=== PATIENT | female | born 1935 | race Caucasian/White ===

== ENCOUNTER → 2024-02-17 | Outpatient (CLI) | payer MEDICARE, MEDICAID, SELFPAY ==
[2024-02-17 11:17] LABS: Basophils % (Auto) 1 % (0-2.5); Eosinophils # (Auto) 0.1 Thou/mm3 (0.0-0.5); Eosinophils % (Auto) 1 % (0-10); Hematocrit 30.8 % (36.0-46.0); Hemoglobin 9.8 g/dL (12.0-16.0); Immature Granulocytes % (Auto) 0 % (0-0); Immature Granulocytes Auto 0.01 Thou/mm3 (0.00-0.00); Lymphocytes # (Auto) 0.9 Thou/mm3 (1.0-4.8); Lymphocytes % (Auto) 20 % (10-50); Mean Corpuscular HGB Conc 31.8 g/dl (31.0-37.0); Mean Corpuscular Hemoglobin 29.8 pg (25.0-35.0); Mean Corpuscular Volume 94 fL (80-100); Monocytes # (Auto) 0.6 Thou/mm3 (0.0-0.8); Monocytes % (Auto) 13 % (0-12); Neutrophils % (Auto) 65 % (37-80); Nucleated Red Blood Cell % 0 /100 WBC (0); Platelet Count 356 Thou/mm3 (140-440); RDW Standard Deviation 61.9 fL (36.4-46.3); Red Blood Count 3.29 Miln/mm3 (4.00-5.20); White Blood Count 4.6 Thou/mm3 (3.6-11.0)
[2024-02-17 11:36] LABS: Free T4 (Free Thyroxine) 1.79 ng/dL (0.89-1.76); Thyroid Stimulating Hormone 2.66 uIU/mL (0.55-4.78)
[2024-02-17 12:10] LABS: Ferritin 29 ng/mL (7.3-270.7); Iron 28 mcg/dL (50-170); T4 (Thyroxine) 12.2 mcg/dL (4.5-10.9); Total Iron Binding Capacity 263 mcg/dL (250-425)
== END | disposition home or self-care (01) ==
LOC: COPL 10:15
PROVIDERS: PCP Physician Assistant; Referring Provider Physician Assistant; Visit Provider Physician Assistant
DX: D64.9 Anemia, unspecified (principal); E03.9 Hypothyroidism, unspecified
CPT/HCPCS: 36415; 82728; 83540; 83550; 84436; 84439; 84443; 85025

== ENCOUNTER → 2024-03-06 | Outpatient (CLI) | payer MEDICARE, MEDICAID, SELFPAY | END | disposition home or self-care (01) | LOC: SLDO 14:46 | PROVIDERS: Referring Provider Physician Assistant; Visit Provider Physician Assistant | DX: D64.9 Anemia, unspecified (principal) | CPT/HCPCS: 87205 ==

== ENCOUNTER 2024-09-09 12:01 | Inpatient (IN) | payer MEDICARE, MEDICAID, SELFPAY ==
[2024-09-09] VITALS (10 sets, daily range): BP systolic 99–174; BP diastolic 57–114; PULSE 70–121; RESP 16–100; TEMP 36.6; O2SAT 95–99; BMI 21.1
--- NOTE | 2024-09-09 12:23 | XR_ITS ---
Examination: CT brain head without contrast. 2-D sagittal coronal reconstructions Date and time of exam:September 09, 2024 1310 hours Comparison September 17, 2022 CTDI: vol (mGy):39.9 DLP: (mGycm):769 INDICATIONS: Onset dizziness today Technique: Multiple CT axial sections of the brain have been obtained, 5 mm slice thickness. Contrast has not been administered. 2-D sagittal, coronal reconstructions have been obtained Low dose protocols were performed. One or more of the following dose reduction techniques were used; automated exposure control, adjustment of the mA and/or KV according to patient size, use of iterative reconstruction technique. Findings: Mild ventricular enlargement. Intra-axial or extra-axial hemorrhage density is not seen. No mass effect or midline shift Basal cisterns are not remarkable. Fourth ventricle is midline. Cranial vault intact. Impression: Negative for acute hemorrhage, mass effect or midline shift Advise clinical correlation follow-up accordingly
--- NOTE | 2024-09-09 12:23 | EKG_ITS ---
[facility] Test Date: 2024-09-09 Pat Name: MARTI LOPEZ Department: Room: - Gender: Female Unarmed Security Officer: : 1935 Requested By: Sheridan Cope Order Number: [id number] Reading MD: Sheridan Cope Measurements Intervals [place] Rate: 94 P: NC: QRS: -30 QRSD: 114 T: 81 QT: 372 QTc: 467 Interpretive Statements ATRIAL FIBRILLATION LOW QRS VOLTAGE IN EXTREMITY LEADS [QRS DEFLECTION < 0.5 mV IN LIMB LEADS] POSSIBLE ANTERIOR MYOCARDIAL INFARCTION , PROBABLY OLD [30 ms Q WAVE IN V3/V4, OR R < 0.2 mV IN V4] ABNORMAL RHYTHM ECG Compared to ECG 07/10/2023 11:23:14 Low QRS voltage now present Left-axis deviation no longer present Myocardial infarct finding still present /store/S0/[id number].pdf
--- NOTE | 2024-09-09 12:23 | XR_ITS ---
Examination: AP chest single view TECHNIQUE: AP sitting portable chest single view Date and time: September 09, 2024 1300 hours, comparison September 18, 2022 INDICATIONS: Shortness of breath today. FINDINGS: Opacity left base retrocardiac obscuring detail left hemidiaphragm Mild prominence cardiac contour No pulmonary edema Prominent osteopenia IMPRESSION: Left base pneumonia
--- NOTE | 2024-09-09 12:26 | PD.EDWEAK ---
ED Weakness RME/HPI General Chief complaint: Weakness Stated complaint: Weak, swelling to her feet Time Seen by Provider: 09/09/24 12:21 Arrival date/time: 09/09/24 12:01 This is a case of 88-year-old female with history of VA COPD and anemia came in in the emergency room due to general weakness dizziness and lightheadedness today with swelling on both lower extremities patient daughter denies any chest pain no palpitation but with on and off shortness of breath Limitations: no limitations Related Data Home Medications ?Medication ?Instructions ?Recorded ?Confirmed buspirone 5 mg tablet 5 mg PO BID 09/17/22 07/11/23 acetaminophen 325 mg tablet 325 mg PO PRN PRN Pain (Scale 07/11/23 07/11/23 (Tylenol) Score 1-3) buspirone 5 mg tablet 5 mg PO BID 07/11/23 07/11/23 ferrous sulfate 325 mg (65 mg 325 mg PO BID 07/11/23 07/11/23 iron) capsule,extended release folic acid 1 mg tablet 1 mg PO DAILY 07/11/23 07/11/23 furosemide 40 mg tablet (Lasix) 40 mg PO QDAY 07/11/23 07/11/23 magnesium 100 mg capsule 400 mg PO DAILY 07/11/23 07/11/23 pantoprazole 40 mg tablet,delayed 40 mg PO BID 07/11/23 07/11/23 release potassium chloride 8 mEq 8 meq PO DAILY 07/11/23 07/11/23 tablet,extended release sacubitril 24 mg-valsartan 26 mg 1 tab BID 07/11/23 07/11/23 tablet (Entresto) spironolactone 25 mg tablet 25 mg PO DAILY 07/11/23 07/11/23 Previous Rx's ?Medication ?Instructions ?Recorded amiodarone 200 mg tablet 200 mg PO BID 30 days #60 tabs 09/24/22 apixaban 2.5 mg tablet (Eliquis) 2.5 mg PO BID 30 days #60 tabs 09/24/22 aspirin 81 mg tablet,delayed 81 mg PO QDAY 30 days #30 tabs 09/24/22 release atorvastatin 20 mg tablet 40 mg (2 x 20 mg) PO HS 30 days 09/24/22 #60 tabs metoprolol succinate 25 mg 50 mg (2 x 25 mg) PO QDAY 30 days 09/24/22 tablet,extended release 24 hr #60 tabs mirtazapine 15 mg tablet 15 mg PO HS 30 days #30 tabs 09/24/22 Allergies Allergy/AdvReac Type Severity Reaction Status Date / Time tramadol AdvReac Intermediate UPSETS Verified 09/09/24 12:08 STOMACH,DOESN'T FEEL GOOD Review of Systems Review of Systems Systems Reviewed: All systems reviewed, normal except as documented Constitutional Constitutional: Reports system reviewed and no additional complaints, except as documented, Reports as per HPI, Denies anorexia, Denies body ache(s), Denies chills, Denies daytime sleepiness, Denies difficulty sleeping, Denies excessive sweating, Reports fatigue, Denies fever(s), Denies frequent falls, Denies headache(s), Denies increased appetite, Denies poor appetite, Denies lethargy, Denies malaise, Denies night sweats, Denies snoring, Denies stops breathing during sleep, Reports weakness, Denies weight gain and Denies weight loss Eyes Eyes: Reports system reviewed and no additional complaints, except as documented and Reports as per HPI ENT Ears, Nose, Mouth, and Throat: Reports system reviewed and no additional complaints, except as documented, Reports as per HPI and Denies headache(s) Cardiovascular Cardiovascular: Reports system reviewed and no additional complaints, except as documented, Reports as per HPI, Denies acrocyanosis, Denies chest pain, Denies chest pain at rest, Denies chest pain with activity, Denies claudication, Denies diaphoresis, Reports dyspnea, Denies dyspnea on exertion, Denies edema, Denies irregular heart rhythm, Reports leg edema, Denies leg ulcers, Denies lightheadedness, Denies orthopnea, Denies palpitations, Denies paroxysmal nocturnal dyspnea, Denies pedal edema, Denies radiating jaw, neck or arm pain, Denies rapid heart rate, Denies slow heart rate and Denies syncope Respiratory Respiratory: Reports system reviewed and no additional complaints, except as documented, Denies change in phlegm color, Denies chest congestion, Denies cough, Reports dyspnea, Denies dyspnea on exertion, Denies excessive phlegm production, Denies hemoptysis, Denies pain on inspiration, Denies pain with cough, Denies snoring, Denies stridor and Denies wheezing Gastrointestinal Gastrointestinal: Reports system reviewed and no additional complaints, except as documented, Reports as per HPI, Denies abdominal pain, Denies diarrhea, Denies hematemesis, Denies hematochezia, Denies loose stools, Denies melena and Denies nausea Neurologic Neurologic: Reports system reviewed and no additional complaints, except as documented, Reports as per HPI, Denies frequent falls, Denies headache(s), Denies syncope and Reports weakness Endocrine Endocrine: Denies excessive sweating, Reports fatigue and Denies palpitations Allergic/Immunologic Allergic/Immunologic: Denies wheezing Past Medical History Past Medical History NEUROLOGIC: Positive Neurological Disorders; Negative Seizures CARDIAC: Positive Cardiac Disorders (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; Takotsubo syndrome), Myocardial Infarction, Atrial Fibrillation, Hypercholesterolemia, Congestive Heart Failure, Edema and Hypertension RESPIRATORY: Negative Chronic Obstructive Pulmonary Disease (COPD) GASTROINTESTINAL: Positive Gastrointestinal Disorders, Gall Bladder Disease, Ulcer (gastric ulcer) and Gastroesophageal Reflux Disease GENITOURINARY: Negative Genitourinary Disorders or Renal Disease REPRODUCTIVE: Positive Previous Pregnancies (x7 ) MUSCULOSKELETAL: Positive Musculoskeletal Disorders and Arthritis ENT: Positive Cataracts and Macular Degeneration ENDOCRINE: Negative Diabetes Mellitus Type 1 or Diabetes Mellitus Type 2 HEMATOLOGIC: Negative Blood Disorders OTHER HISTORY: Positive Blood Transfusions; Negative Blood Transfusion Reaction, Anesthesia Reactions or Cancer Family History FAMILY HISTORY: Positive Family Cancer Surgical History SURGICAL: Positive Cardiac Surgery and Angiogram; Negative Coronary Stent, Pacemaker, Endocrine Surgery, Abdominal Surgery (ulcer surgery in past) or Joint Replacement Social History SMOKING STATUS: Former smoker ED Exam General Limitations: Present no limitations General appearance: Present alert, in no apparent distress and other (Awake alert oriented not in distress nontoxic looking) Head Head exam: Present atraumatic, normocephalic and normal inspection Eye Eye exam: Present normal appearance, PERRL and EOMI ENT ENT exam: Present normal exam, normal oropharynx, mucous membranes moist and other (Normal HEENT exam) Neck Neck exam: Present normal inspection, full ROM and trachea midline; Absent tenderness, meningismus or lymphadenopathy Chest Chest inspection: Present normal inspection and symmetric chest wall rise Respiratory Respiratory exam: Present normal lung sounds bilaterally; Absent respiratory distress, wheezes, stridor, accessory muscle use or prolonged expiratory phase Cardiovascular Cardiovascular exam: Present regular rate, normal rhythm, irregular rhythm, normal heart sounds and other (Pitting edema +4 both lower extremities); Absent bradycardia, tachycardia, systolic murmur or diastolic murmur Abdominal Exam Abdominal exam: Present soft and normal bowel sounds; Absent distention, tenderness, guarding, rebound, rigidity, diminished bowel sounds, hyperactive bowel sounds or hypoactive bowel sounds Extremities Exam Extremities exam: Present normal inspection and full ROM Back Exam Back exam: Present normal inspection and full ROM Neurological Exam Neurological exam: Present alert, oriented X3, CN II-XII intact, reflexes normal and other (Patient is using walker memory intact no facial droop no slurring of speech sensory normal reflex normal patient have generalized weakness negative Babinski); Absent motor sensory deficit Psychiatric Psychiatric exam: Present normal affect and normal mood Skin Skin exam: Present warm, dry, intact and normal color Course Quality Measures none Orders Category Date Time Status COVID-19 Screening Questionnaire NOW Care 09/09/24 12:56 Active Decision to Admit X1 Care 09/09/24 12:56 Completed EKG (ED ONLY) *Do not use* NOW Care 09/09/24 12:[address] head/brain wo con Stat Exams 09/09/24 12:23 Taken EKG (ED Only) Stat Exams 09/09/24 12:23 Draft US venous doppler LE BI Stat Exams 09/09/24 12:28 Ordered XR chest 1V portable Stat Exams 09/09/24 12:23 Taken BNP [B-Type Natriuretic Peptide] Stat Lab 09/09/24 12:23 Ordered Blood Culture (Lab) Stat Lab 09/09/24 12:59 Received CBC Stat Lab 09/09/24 13:03 Completed CMP [Comprehensive Metabolic Panel] Stat Lab 09/09/24 12:59 Received D-Dimer Stat Lab 09/09/24 12:24 Ordered Lactic Acid [Lactate (Lactic Acid)] Stat Lab 09/09/24 12:59 Results Procalcitonin Stat Lab 09/09/24 12:59 Received Prothrombin Time with INR Stat Lab 09/09/24 12:23 Ordered TSH [Thyroid Stimulating Hormone] Stat Lab 09/09/24 12:59 Received Troponin I Stat Lab 09/09/24 12:59 Received Urinalysis Stat Lab 09/09/24 12:24 Ordered Urine Culture Stat Lab 09/09/24 12:25 Ordered Bumetanide Inj [Bumex Inj] Med 09/09/24 21:00 Pending 2 mg IVP BID Vital Signs Vital signs: Vital Signs Temperature 97.8 F 09/09/24 12:14 Respiratory Rate 16 09/09/24 12:14 Blood Pressure 99/62 09/09/24 12:14 Oxygen Delivery Method Room Air 09/09/24 12:14 Patient is afebrile not tachycardic BP stable oxygen saturation in room air not tachypneic Weakness MDM Narrative MDM Narrative:: This is a case of 88-year-old female with history of VA COPD and anemia came in in the emergency room due to general weakness dizziness and lightheadedness today with swelling on both lower extremities patient daughter denies any chest pain no palpitation but with on and off shortness of breath patient is awake alert oriented not in distress nontoxic looking patient lungs sound is clear no crackles no rales no retraction no stridor HEENT exam normal patient heart not tachycardic normal heart rate irregular rhythm no murmur with pitting edema +4 the rest of the physical examination neurological exam is normal and unremarkable blood test showed blood test showed leukocytosis at 11.9 anemic at 10.9 patient still pending all blood tests lactic acid showed 3.3?procalcitonin level and blood culture was also ordered pending results urinalysis CT scan venous ultrasound and D-dimer is also pending Dr farr seen patient here and ordered to admit patient to hospitalist ordered Bumex 2 mg twice a day discussed with the patient the treatment plan and admission and agreed spoke dr carrion discussed patient condition history and physical examination and relayed the order of Dr. galdamez accept patient admission Patient data External records reviewed:: [facility] previous records Clinical information provided by:: patient and family Social determinants that could affect healthcare access:: none Patient has the following chronic illnesses:: None How is presenting disease/condition affected by chronic disease/condition?: no chronic disease Evaluation data The following diagnostics were reviewed and interpreted by me:: lab results and radiology exam(s) Lab and/or radiology exams considered but not ordered:: Reviewed Interpretation Summary: Reviewed Medications / Prescriptions Medications or Prescriptions considered but not ordered:: Given Medication administrations:: Medication Administration History Bumetanide (Bumetanide Inj 0.25 Mg/Ml Vial 4 Ml) 2 mg IVP BID GOLDIE Stop: 10/09/24 20:59 Given Consultations Consultation(s) initiated? (list below): Yes Consultation #1 (Physician, Specialty, Details): dr farr ordered pt to admit for chf exacerbation Consultation #2 (Physician, Specialty, Details): dr carrion accept patient admission Diagnosis Weakness Differential Diagnosis: acute myocardial infarction, anemia, hypoglycemia, hypothyroidism, sepsis, dehydration and other (CHF exacerbation) Most likely diagnosis given after review of the tests above:: CHF exacerbation Admission Indicated Admission indicated?: indicated Explain why admission is indicated or not indicated:: CHF exacerbation Admission Request Was there a request for admission?: Yes Admission Attestation Admission request attestation: Discussed case with [] from Hospitalist service regarding admission. Discussed patients ED course, exam findings, labs, and radiology results. The Hospitalist [agrees,declines] to accept the patient for admission. Disposition Plan Disposition Plan: Admit Discharge Plan Plan Patient Disposition: Admit Acute Care w/in Hospital Patient condition on transfer: Stable Prescriptions/Referrals Prescriptions/Med Rec: No Action buspirone 5 mg tablet 5 mg PO BID Patient Comments: take 1 tablet by mouth twice a day Eliquis 2.5 mg Tablet 2.5 mg PO BID 30 Days Qty: 60 2RF atorvastatin 20 mg Tablet 40 mg PO HS 30 Days Qty: 60 2RF amiodarone 200 mg Tablet 200 mg PO BID 30 Days Qty: 60 2RF aspirin 81 mg Tablet,Delayed Release (Dr/Ec) 81 mg PO QDAY 30 Days Qty: 30 2RF mirtazapine 15 mg Tablet 15 mg PO HS 30 Days Qty: 30 2RF metoprolol succinate 25 mg Tablet Extended Release 24 Hr 50 mg PO QDAY 30 Days Qty: 60 2RF Entresto 24-26 mg Tablet 1 tab BID folic acid 1 mg Tablet 1 mg PO DAILY ferrous sulfate 325 mg (65 mg iron) Capsule, Extended Release 325 mg PO BID furosemide [Lasix] 40 mg Tablet 40 mg PO QDAY buspirone 5 mg Tablet 5 mg PO BID pantoprazole 40 mg Tablet,Delayed Release (Dr/Ec) 40 mg PO BID magnesium 100 mg Capsule 400 mg PO DAILY acetaminophen [Tylenol] 325 mg Tablet 325 mg PO PRN MDD 3 grams PRN (Reason: Pain (Scale Score 1-3)) spironolactone 25 mg Tablet 25 mg PO DAILY potassium chloride 8 mEq Tablet Extended Release 8 meq PO DAILY Problem List Clinical Impression: Acute exacerbation of CHF (congestive heart failure) Patient/Caregiver Discharge Instructions Education Materials: Coping with Heart Failure Print Language: Ethiopian Stand Alone Forms: Marleny Award Info., Patient Portal Info Letter PA/POSTPARTUM NURSE Supervising Physician PA/POSTPARTUM NURSE Supervising Physician: dR Reese
--- NOTE | 2024-09-09 12:28 | XR_ITS ---
Examination: Venous duplex lower extremity sonogram, bilateral. Date and time of exam: September 09, 2024 at 1317 hours INDICATIONS: Bilateral leg swelling beginning one week ago Technique: Multiple sonographic images of the deep venous system have been obtained. B-mode/2-D grayscale imaging of vascular structures and Doppler spectral analysis (waveforms) and color performed Both legs are examined. Findings: Deep venous systems do not demonstrate abnormal echogenicity. All visualized deep veins exhibit compressibility. All visualized deep veins exhibit augmentation. Impression: Negative for deep vein thrombosis
[2024-09-09 13:07] LABS: Lactate (Lactic Acid) 3.6 mMol/L (0.4-2.0)
[2024-09-09 13:12] LABS: Basophils # (Auto) 0.1 Thou/mm3 (0.0-0.2); Basophils % (Auto) 0 % (0-2.5); Eosinophils # (Auto) 0.0 Thou/mm3 (0.0-0.5); Eosinophils % (Auto) 0 % (0-10); Hematocrit 30.6 % (36.0-46.0); Hemoglobin 10.1 g/dL (12.0-16.0); Immature Granulocytes Auto 0.05 Thou/mm3 (0.00-0.00); Lymphocytes # (Auto) 0.9 Thou/mm3 (1.0-4.8); Lymphocytes % (Auto) 8 % (10-50); Mean Corpuscular HGB Conc 33.0 g/dl (31.0-37.0); Mean Corpuscular Hemoglobin 32.7 pg (25.0-35.0); Mean Corpuscular Volume 99 fL (80-100); Monocytes # (Auto) 0.8 Thou/mm3 (0.0-0.8); Monocytes % (Auto) 7 % (0-12); Neutrophils # (Auto) 9.9 Thou/mm3 (1.8-7.7); Neutrophils % (Auto) 84 % (37-80); Nucleated Red Blood Cell # 0.00 Thou/mm3 (0.00-0.00); Nucleated Red Blood Cell % 0 /100 WBC (0); Platelet Count 454 Thou/mm3 (140-440); RDW Standard Deviation 57.4 fL (36.4-46.3); Red Blood Count 3.09 Miln/mm3 (4.00-5.20); White Blood Count 11.8 Thou/mm3 (3.6-11.0)
--- NOTE | 2024-09-09 13:25 | ESHP_ITS ---
<Statement entered by Deejay Maldonado MD - 09/10/24 17:23> Patient seen and examined at bedside, no acute overnight events. I discussed and supervised with the international relations teacher physician who took care of this patient. I personally saw and examined the patient. I agree with most of the assessment and plan. Patient sent to ED from Dr. Bar's clinic for CHF exacerbation, noted to have significant fluid overload. 4+ pitting edema bilaterally, worsening SOB. Dr. Bar following patient, recommended 2mg Bumex BID. Strict I&O's ordered. Patient found to be flu +, CXR showed left base PNA, Tamiflu initiated. Plan of care discussed with attending Dr. Fajardo. Deejay Maldonado MD PGY-2 Documentation for date of: 09/09/24 HPI History of Present Illness History of present illness: 87-year-old female with a past medical history of Takotsubo cardiomyopathy with an EF Estimated EF 55-60% in 07/2023, afib on apixiban, (followed by Dr. Bar), NSTEMI, essential HTN, HLD,, mild dementia, depression, GERD, PUD s/p gastric esophageal surgery, former smoker with more than 25 pack years of smoking history 15 years ago, occasional alcohol use, constipation, and intermittent shortness of breath. Patient had an appointment today with Dr. Milian who noted her legs to be very edematous with 9 out of 10 pain bilaterally and told patient to go to the emergency department for evaluation. Patient also reports generalized lower extremity weakness and lightheadedness that prompts her to sit down. Patient has been taking home medications without interruption. At home patient does wear compression socks which help with her swollen legs however today patient not wearing compression socks. per her home health care case manager Collette, patient had a recent fall 3 weeks ago with fracture to the right rib seen in [facility]. Over the past 3 weeks patient has had increased work of breathing, patient lives at home alone and is able to ambulate with walker and independent of ADLs but requires help with IADLs. Endorses dizziness bilateral lower extremity paresthesias and weakness Patient denies fever or chills dysuria , frequent urination, no abdominal pain, no vision changes In the emergency department patient received infectious workup, stroke rule eval, and dvt us, started on IV bumex for suspected CHF exacerbation. Dx * WBC 11.8 * Creatinine 1.4 up from 1.1 baseline BUN to creatinine ratio 14 * Lactic acid 3.6 * Procalcitonin within normal limits * TSH within normal limits * influenza A B positive * D-dimer pending * UA pending collection * Blood cultures pending * Chest x-ray with evidence of left base pneumonia * Noncon head CT: unremarkable * Venous Doppler bilateral lower extremity: negative for DVT Tx * 2 mg IV Bumex per Dr. Bar recs Review of Systems Review of Systems Narrative Review of Systems: As per HPI Past Medical History Family History OTHER FAMILY HX: Noncontributory Social History SOCIAL: Patient has a history of smoking 25 pack years patient stopped smoking 15 years ago Exam Vital Signs Temp Resp BP O2 Del Method 97.8 F 16 99/62 Room Air 09/09/24 12:14 09/09/24 12:14 09/09/24 12:14 09/09/24 12:14 Narrative Exam GENERAL: no acute distress, AAO x3, comfortably laying in bed HEENT: Head AT/ NC. NECK: unable to assess JVD given loose skin around neck CARDIOVASCULAR: RRR. Normal S1/S2, No m/r/g. 4+ pitting of BLE to the mid urena and 2+ pitting to the knees bilaterally RESPIRATORY: CTAB. No wheezing, rhonchi, crackles. GASTROINTESTINAL: Abdomen soft, non tender no palpable masses. Bowel sounds present, no suprapubic tenderness to deep palpation MUSCULOSKELETAL:? No cyanosis or edema, no visible joint swelling. NEUROLOGICAL: CN II-XII grossly intact. No focal deficits. Moving all 4 extremities PSYCHIATRIC: Awake and alert, not agitated, normal mood and affect. SKIN: No obvious rashes, no jaundice, Results: Labs 09/11/24 04:54 09/11/24 04:54 Labs: Short CBC 09/09/24 Range/Units 13:03 WBC 11.8 H (3.6-11.0) Thou/mm3 Hgb 10.1 L (12.0-16.0) g/dL Hct 30.6 L (36.0-46.0) % Plt Count 454 H (140-440) Thou/mm3 Quality Measures Quality Measures none Advance care planning discussed with:: patient Medications Home Medications and Allergies Home Medications ?Medication ?Instructions ?Recorded ?Confirmed ?Type buspirone 5 mg tablet 5 mg PO BID 09/17/22 5 History acetaminophen 325 mg tablet 325 mg PO PRN PRN Pain (Sc ashok 07/11/23 09/10/24 History (Tylenol) Score 1-3) buspirone 5 mg tablet 5 mg PO BID 07/11/23 5 History ferrous sulfate 325 mg (65 mg 325 mg PO BID 07/11/23 0 09/10/24 History iron) capsule,extended release folic acid 1 mg tablet 1 mg PO DAILY 07/11/2309/10 History furosemide 40 mg tablet (Lasix) 40 mg PO QDAY 07/11/23 09/10/24 History magnesium 100 mg capsule 400 mg PO DAILY 07/11/2312/26 History pantoprazole 40 mg tablet,delayed 40 mg PO BID 4 09/10/24 History release potassium chloride 8 mEq 8 meq PO DAILY 07/11/2309/01 History tablet,extended release sacubitril 24 mg-valsartan 26 mg 1 tab PO BID 07/11/23 09/10/24 History tablet (Entresto) spironolactone 25 mg tablet 25 mg PO DAILY 07/11/23 History Allergies Allergy/AdvReac Type Severity Reaction Status Date / Time tramadol Allergy Intermediate UPSETS Verified 09/09/24 14:28 STOMACH,DOESN'T FEEL GOOD Visit Medications Bumetanide (Bumetanide Inj 0.25 Mg/Ml Vial 4 Ml) 2 mg IVP BID GOLDIE Stop: 10/09/24 20:59 Assessment & Plan Plan 87-year-old female with a past medical history of Takotsubo cardiomyopathy with an EF Estimated EF 55-60% in 07/2023, afib on apixiban, (followed by Dr. Bar), NSTEMI, essential HTN, HLD,, mild dementia, depression, GERD, PUD s/p gastric esophageal surgery, former smoker with more than 25 pack years of smoking history 15 years ago, occasional alcohol use, and constipation, who presented to Dr. Bar clinic today and was noted to have 4+ edema BLE, most concerning for CHF exacerbation started on 2 mg Bumex IV. Preliminary infectious workup revealed leukocytosis, influenza A/B+, chest x-ray shows possible left lower lobe pneumonia however lungs to auscultation are clear with perhaps decreased breath sounds bilaterally in setting of recent fall 3 weeks ago and broken rib on the right side consider patient not able to inhale fully secondary to pain, creatinine elevated from baseline, pending urine analysis and cultures, and blood cultures, and medication reconciliation. #Acute CHF exacerbation #Hx of Takotsubo cardiomyopathy #HFpEF (EF 55-60% in 07/2023) Per patient she has been having increased work of breathing over the past few days with exertion, patient notes that her legs are less edematous when she wears compression socks however she was not wearing them today she endorses taking her medications as prescribed. Patient does not report symptoms of cough, but does endorse 9 out of 10 bilateral lower extremity pain PureWick catheter in place given aggressive diuresis and concern for fall. Dx * Bilateral lower extremity ultrasound to evaluate lower extremity edema and pain: No DVT * Consider IVC ultrasound to assess volume status given unable to assess JVD on physical exam * BNP elevated at 296 Tx * IV Bumex 2 mg twice daily per cardiology recommendations * Holding home sacubitril/valsartan pending med reconciliation #Influenza A/B+ #Left lower lobe viral pneumonia #Leukocytosis SIRS criteria: Mild leukocytosis, not tachycardic not hypotensive SOFA score 2 for creatinine 1.4 Bacterial versus viral pneumonia. Viral pneumonia more likely given procalcitonin levels are within normal limits and patient tested positive for influenza WBC mildly elevated at 11.8 continue to monitor Dx -Lactic acid within normal limits -UA positive for leukocyte esterase and 3 WBC however nitrites negative; low level of suspicion for UTI at this time given lack of LUTS and urine negative nitrites, antibiotics not indicated at this time -Pending urine culture - ending blood cultures Tx - Tamiflu 75 mg daily for 5-day course (09/09 -09/14) - Antibiotics not indicated at this time given likely viral etiology #BO secondary to sepsis with end organ damage Creatinine elevated from baseline, consider pre versus intra versus postrenal etiologies, BUN/creatinine ratio of 14. Concern for prerenal etiology given patient is likely third spacing as evidenced by bilateral lower extremity edema 4+ on exam. OB may continue to worsen given current plan for IV diuresis, continue to monitor - Daily CMP #Electrolyte abnormalities -Daily CMP with mg and Phos -Replete as needed Chronic #hx NSTEMI Patient followed by Dr. Bar ?Follow-up and med reconciliation ?Aspirin? #Fall Patient with history of fall 3 weeks ago with fractured right rib seen at [facility], no head strike of note the patient is on apixaban - Consult PT #HTN -Home metoprolol #HLD - Home atorvastatin #GERD #hx PUD - pansoprazole 40 mg qd #Afib on apixiban - Home apixiban - Home amiodarone #Depression - Home mirtazapine #Dementia Continue delirium precautions avoid nighttime waking for lab draws, continue to monitor for agitation. Dispo: To home, patient has in-home health care case manager named Collette Lopes, who helps with IADLs. Patient is independent of ADLs with walker Diet: Regular diet Bowel Reg: Senna 1 tab p.o. daily as needed VTE ppx: Pauda score 11, pharmacologic VTE PPx indicated, on apixaban at home follow-up on dosing GI ppx: pansoprazole 40 mg qd Code status: DNR Attending Provider Attestation/Addendum Kingsley, Mary Fajardo DO, attest that I was physically present for the berry portions of the service and evaluated the patient with the resident and I reviewed and discussed the case with the resident and agree with the resident's findings and plans of care as documented above Patient is an 88-year-old female with past medical history of Takotsubo cardiomyopathy, A-fib, hypertension, hyperlipidemia, depression, GERD and history of tobacco use who was sent from her certified court/medical interpreter's office due to worsening bilateral lower extremity edema. Patient's son was at bedside as well. Patient endorsed having dyspnea on exertion with decreased activity level of her usual ADLs. Patient at baseline walks with her rollator, but has not been able to ambulate as much due to heaviness in her legs. She states that her certified court/medical interpreter increased her Bumex dose 2 weeks ago, without any improvement of her lower extremity edema. She also noticed that she does not often go to the bathroom as expected. She was recently admitted in nearby hospital due to fall which resulted in rib fracture. Patient denies any active chest pain at this time. She has mild bibasilar crackles on exam with 3+ b/l pitting edema. Will admit patient to telemetry for acute CHF exacerbation and start on Bumex 2mg IV BID. Will follow strict I's and O's and daily weights. Low suspicion for bacterial pneumonia as procal is negative and opacity on CXR appears to be chronic changes in comparison to previous CXRs. SHe is noted to be positive for flu. Will start patient on Tamiflu.
[2024-09-09 13:37] LABS: Alanine Aminotransferase 23 U/L (10-49); Albumin, Serum 2.8 gm/dL (3.4-4.8); Albumin/Globulin Ratio 1.2 (1.2-2.2); Alkaline Phosphatase 100 U/L (46-116); Anion Gap 12 (7-16); Aspartate Amino Transferase 21 U/L (0-34); BUN/Creatinine Ratio 14 Ratio (12-20); Bilirubin,Total 0.3 mg/dL (0.3-1.2); Blood Urea Nitrogen 19 mg/dL (9-23); Calcium 7.9 mg/dL (8.3-10.6); Calcium (Corrected) 8.9 mg/dL (8.5-10.1); Carbon Dioxide 20.2 mMol/L (20.0-31.0); Chloride 107 mMol/L (98-107); Creatinine (Component) 1.4 mg/dL (0.6-1.3); Estimated Creatinine Clearance 25.0 mL/min (>60); Globulin 2.3 gm/dL (2.3-3.5); Glucose 135 mg/dL (74-106); Osmolality,Calculated 281 (275-295); Potassium 3.3 mMol/L (3.4-5.1); Sodium 139 mMol/L (136-145); Thyroid Stimulating Hormone 3.66 uIU/mL (0.55-4.78); Total Protein 5.1 gm/dL (5.7-8.2); Troponin I < 0.020 ng/mL (0.0-0.045); eGFR 36 See Note
--- NOTE | 2024-09-09 13:37 | ECHO_ITS ---
Transthoracic Echo Report Ht (in): 65 Wt (lb): 127 Exam Location: Echo Lab Status: Emergency Deicer Repairer Electric: Jennifer Mata Indications: Procedure Performed: BP: 99 / 62 HR: 72 Technical Quality: Adequate MEASUREMENTS (Male / Female) Normal Values 2D ECHO LV Diastolic Diameter PLAX 4.3 cm 4.2 - 5.9 / 3.9 - 5.3 cm LV Systolic Diameter PLAX 2.8 cm IVS Diastolic Thickness 0.8 cm 0.6 - 1.0 / 0.6 - 0.9 cm LVPW Diastolic Thickness 0.6 cm 0.6 - 1.0 / 0.6 - 0.9 cm LV Relative Wall Thickness 0.3 LVOT Diameter 2.2 cm LA Volume Index 61.7 cm?/m? 16 - 28 cm?/m? Ascending Aorta Diameter 2.8 cm M-MODE AV Cusp Separation MM 1.2 cm DOPPLER AV Peak Velocity 146.7 cm/s AV Peak Gradient 8.6 mmHg LVOT Peak Velocity 42.9 cm/s LVOT Peak Gradient 0.7 mmHg AV Area Cont Eq pk 1.1 cm? MR Peak Velocity 506.0 cm/s MR Peak Gradient 102.4 mmHg MR ERO PISA 0.2 cm? TR Peak Velocity 247.0 cm/s TR Peak Gradient 24.4 mmHg PV Peak Velocity 66.5 cm/s PV Peak Gradient 1.8 mmHg FINDINGS Left Ventricle Normal left ventricular size, wall thickness, systolic function with no obvious regional wall motion abnormalities. Unable to determine diastology due to Afib. The ejection fraction is visually estimated at 55 %. Right Ventricle The right ventricle is normal in size and systolic function. The estimated right ventricular systolic pressure, 24 mmHg. RAP 5mmHg. Left Atrium The left atrial cavity size is severely increased. Right Atrium The right atrial cavity size is severely increased. Atrial Septum The interatrial septum appears normal with no evidence of a shunt. Aorta The aorta is normal by two-dimensional, color flow and Doppler interrogation. Mitral Valve The mitral valve annulus is moderately calcified with mild leaflet thickening. There is moderate to severe mitral regurgitation. Aortic Valve The aortic valve leaflets are moderately calcified without evidence of stenosis. No aortic regurgitation. Tricuspid Valve The tricuspid valve is normal by two-dimensional, color flow and Doppler interrogation. There is moderate tricuspid regurgitation. Pulmonic Valve The pulmonic valve is not well visualized. There is mild pulmonic regurgitation. Vessels The pulmonary artery appears normal. The inferior vena cava pulmonary and hepatic veins appear normal. Pericardium There is no significant pericardial effusion. Small left pleural effusion. CONCLUSIONS Indications: CHF and history of Afib Normal LV size and function. Estimated EF 55-60%. Diastolic function Normal RV size and function. Estimated RVSP around 35 mm hg. Severe LA dilataion. Moderate to severe MR. Mild RA Moderate TR. Mild PI. Moderate to severe aortic valve sclerosis without stenosis. Left Pleural Effusion. No Pericardial Effusion. Napoleon Bar (Electronically Signed) Final Date: 09 September 2024 17:52
[2024-09-09 13:56] LABS: Procalcitonin 0.11 ng/ml (0.0-0.49)
[2024-09-09] MEDS: POTASSIUM CHLORIDE 10% 20 MEQ/15 ML UDC 40 MEQ PO (14:34)
[2024-09-09] MEDS: BUMETANIDE INJ 0.25 MG/ML VIAL 4 ML 2 MG IVP ×2 (14:35→21:19)
[2024-09-09 15:06] LABS: D-Dimer 307 ng/mL (<600); INR 1.0 (0.9-1.3); Prothrombin Time 11.2 Seconds (9.0-12.2)
[2024-09-09 15:10] LABS: Magnesium 1.8 mg/dL (1.6-2.6)
[2024-09-09 15:11] LABS: B-Type Natriuretic Peptide 296 pg/mL (0-100)
[2024-09-09 16:05] LABS: Reflex Lactate? Y
[2024-09-09] MEDS: OSELTAMIVIR 30 MG CAPSULE PO (16:19)
[2024-09-09 16:45] LABS: Collection Type, Urine Voided
[2024-09-09 17:01] LABS: Lactic Acid, 3 HR 1.6 mMol/L (0.4-2.0)
[2024-09-09 17:13] LABS: Bacteria,Urine Rare; Bilirubin,Urine Negative (Negative); Blood,Urine Negative (Negative); Clarity,Urine Clear (Clear/Hazy); Color,Urine Colorless (Lt Yel-Yel); Glucose, Urine Negative (Negative); Ketones,Urine Negative (Negative); Leukocyte Esterase,Urine Positive (Negative); Nitrite,Urine Negative (Negative); PH,Urine 6.0 (5.0-7.0); Protein,Urine Negative (Neg - Trace); RBC,Urine 1 /hpf (0-3); Specific Gravity,Urine 1.008 (1.001-1.035); Squamous Epithelial Cell,Urine 2 /hpf (0-5); Urobilinogen,Urine Negative mg/dL (0.0-1.0); WBC,Urine 3 /hpf (0-5)
[2024-09-09 17:41] LABS: Troponin I < 0.020 ng/mL (0.0-0.045)
[2024-09-09] MEDS: Magnesium Sulfate 2 GM Ivpb 2 GM/50 ML BAG IV (21:06)
[2024-09-09] MEDS: PANTOPRAZOLE 40 MG TABLET PO (21:07)
--- NOTE | 2024-09-09 23:10 | PC.NURSE ---
Patient admitted to Telemetry room?263 from ED via gurney. Patient is alert and oriented. Settled into bed with staff assist. senior chemist established, controlled Afib on the monitor. Full assessment completed see documentation. Edema to lower extremities, all extremities cool to touch. Patient?s vitals stable on admit. Call howe within reach and bed alarm for safety. Patient stable on admit. Will monitor further. Patient unsure of her home medication at present. Patient states will have son Robert to bring in medications in the morning.
[2024-09-10] VITALS (12 sets, daily range): BP systolic 108–147; BP diastolic 58–97; PULSE 60–96; RESP 13–100; TEMP 35.9–36.6; O2SAT 98–100; BMI 13.0
[2024-09-10 06:30] LABS: Basophils # (Auto) 0.0 Thou/mm3 (0.0-0.2); Basophils % (Auto) 1 % (0-2.5); Eosinophils # (Auto) 0.1 Thou/mm3 (0.0-0.5); Eosinophils % (Auto) 2 % (0-10); Hematocrit 30.0 % (36.0-46.0); Hemoglobin 9.7 g/dL (12.0-16.0); Immature Granulocytes Auto 0.02 Thou/mm3 (0.00-0.00); Lymphocytes # (Auto) 1.1 Thou/mm3 (1.0-4.8); Lymphocytes % (Auto) 21 % (10-50); Mean Corpuscular HGB Conc 32.3 g/dl (31.0-37.0); Mean Corpuscular Hemoglobin 32.9 pg (25.0-35.0); Mean Corpuscular Volume 102 fL (80-100); Monocytes # (Auto) 0.6 Thou/mm3 (0.0-0.8); Monocytes % (Auto) 11 % (0-12); Neutrophils # (Auto) 3.4 Thou/mm3 (1.8-7.7); Neutrophils % (Auto) 66 % (37-80); Nucleated Red Blood Cell # 0.00 Thou/mm3 (0.00-0.00); Nucleated Red Blood Cell % 0 /100 WBC (0); Platelet Count 459 Thou/mm3 (140-440); RDW Standard Deviation 58.5 fL (36.4-46.3); Red Blood Count 2.95 Miln/mm3 (4.00-5.20); White Blood Count 5.2 Thou/mm3 (3.6-11.0)
[2024-09-10 07:12] LABS: Alanine Aminotransferase 19 U/L (10-49); Albumin, Serum 2.5 gm/dL (3.4-4.8); Albumin/Globulin Ratio 1.2 (1.2-2.2); Alkaline Phosphatase 97 U/L (46-116); Anion Gap 9 (7-16); Aspartate Amino Transferase 16 U/L (0-34); BUN/Creatinine Ratio 15 Ratio (12-20); Bilirubin,Total 0.3 mg/dL (0.3-1.2); Blood Urea Nitrogen 18 mg/dL (9-23); Calcium 7.9 mg/dL (8.3-10.6); Calcium (Corrected) 9.1 mg/dL (8.5-10.1); Carbon Dioxide 27.7 mMol/L (20.0-31.0); Chloride 107 mMol/L (98-107); Creatinine (Component) 1.2 mg/dL (0.6-1.3); Estimated Creatinine Clearance 29.2 mL/min (>60); Globulin 2.1 gm/dL (2.3-3.5); Glucose 75 mg/dL (74-106); Magnesium 1.9 mg/dL (1.6-2.6); Osmolality,Calculated 287 (275-295); Phosphorous 3.3 mg/dL (2.4-5.1); Potassium 4.1 mMol/L (3.4-5.1); Sodium 144 mMol/L (136-145); Total Protein 4.6 gm/dL (5.7-8.2); eGFR 44 See Note
--- NOTE | 2024-09-10 08:11 | PD.RESPRO ---
Documentation for date of: 09/10/24 Exam Vital Signs Temp Pulse Resp BP Pulse Ox O2 Del Method O2 Flow Rate 96.9 F 62 13 145/97 H 100 Nasal Cannula 2 09/10/24 04:00 09/10/24 04:00 09/10/24 04:00 09/10/24 04:00 09/10/24 04:00 09/10/24 04:00 09/10/24 04:00 Objective Labs 09/10/24 05:00 09/10/24 05:00 Labs: Laboratory Results - last 24 hr 09/09/24 09/09/24 09/09/24 12:59 13:03 14:45 WBC 11.8 H RBC 3.09 L Hgb 10.1 L Hct 30.6 L MCV 99 MCH 32.7 MCHC 33.0 RDW Std Deviation 57.4 H Plt Count 454 H Neut % (Auto) 84 H Lymph % (Auto) 8 L Tripp % (Auto) 7 Eos % (Auto) 0 Baso % (Auto) 0 Neut # (Auto) 9.9 H Lymph # (Auto) 0.9 L Tripp # (Auto) 0.8 Eos # (Auto) 0.0 Baso # (Auto) 0.1 Immature Gran # (Auto) 0.05 H Absolute Nucleated RBC 0.00 Immature Gran % 0 Nucleated RBC % 0 PT 11.2 INR 1.0 D-Dimer 307 Sodium 139 Potassium 3.3 L Chloride 107 Carbon Dioxide 20.2 Anion Gap 12 BUN 19 Creatinine 1.4 H Estim Creat Clear Calc 25.0 L eGFR 36 L BUN/Creatinine Ratio 14 Glucose 135 H Calculated Osmolality 281 Lactic Acid 3.6 H Calcium 7.9 L Corrected Calcium 8.9 Phosphorus Magnesium 1.8 Total Bilirubin 0.3 AST 21 ALT 23 Alkaline Phosphatase 100 Troponin I < 0.020 B-Natriuretic Peptide 296 H Total Protein 5.1 L Albumin 2.8 L Globulin 2.3 Albumin/Globulin Ratio 1.2 Procalcitonin 0.11 TSH 3.66 Ur Collection Type Urine Color Urine Clarity Urine pH Ur Specific Burwell Urine Protein Urine Glucose (UA) Urine Ketones Urine Blood Urine Nitrite Urine Bilirubin Urine Urobilinogen (Auto) Ur Leukocyte Esterase Urine RBC Urine WBC Ur Squamous Epith Cells Urine Bacteria 09/09/24 09/09/24 09/10/24 16:35 16:54 05:00 WBC 5.2 D RBC 2.95 L Hgb 9.7 L Hct 30.0 L MCV 102 H MCH 32.9 MCHC 32.3 RDW Std Deviation 58.5 H Plt Count 459 H Neut % (Auto) 66 Lymph % (Auto) 21 Tripp % (Auto) 11 Eos % (Auto) 2 Baso % (Auto) 1 Neut # (Auto) 3.4 Lymph # (Auto) 1.1 Tripp # (Auto) 0.6 Eos # (Auto) 0.1 Baso # (Auto) 0.0 Immature Gran # (Auto) 0.02 H Absolute Nucleated RBC 0.00 Immature Gran % 0 Nucleated RBC % 0 PT INR D-Dimer Sodium 144 Potassium 4.1 D Chloride 107 Carbon Dioxide 27.7 Anion Gap 9 BUN 18 Creatinine 1.2 Estim Creat Clear Calc 29.2 L eGFR 44 L BUN/Creatinine Ratio 15 Glucose 75 D Calculated Osmolality 287 Lactic Acid 1.6 Calcium 7.9 L Corrected Calcium 9.1 Phosphorus 3.3 Magnesium 1.9 Total Bilirubin 0.3 AST 16 ALT 19 Alkaline Phosphatase 97 Troponin I < 0.020 B-Natriuretic Peptide Total Protein 4.6 L Albumin 2.5 L Globulin 2.1 L Albumin/Globulin Ratio 1.2 Procalcitonin TSH Ur Collection Type Voided Urine Color Colorless A Urine Clarity Clear Urine pH 6.0 Ur Specific Burwell 1.008 Urine Protein Negative Urine Glucose (UA) Negative Urine Ketones Negative Urine Blood Negative Urine Nitrite Negative Urine Bilirubin Negative Urine Urobilinogen (Auto) Negative Ur Leukocyte Esterase Positive Urine RBC 1 Urine WBC 3 Ur Squamous Epith Cells 2 Urine Bacteria Rare Quality Measures Quality Measures none Assessment & Plan Assessment Current Active Medications: Generic Name Dose Route Start Last Admin Trade Name Mayo PRN Reason Stop Dose Admin Acetaminophen 650 mg 09/09/24 13:35 Acetaminophen 325 Mg Tablet PO 10/09/24 13:34 Q6H PRN Fever >100.4 Acetaminophen 650 mg 09/09/24 13:35 Acetaminophen 325 Mg Tablet PO 10/09/24 13:34 Q6H PRN PAIN SCALE 1-3 (mild Bumetanide 2 mg 09/09/24 13:45 09/09/24 21:19 Bumetanide Inj 0.25 Mg/Ml Vial 4 Ml IVP 10/09/24 13:44 2 mg BID GOLDIE Administration Ondansetron HCl 4 mg 09/09/24 13:35 Ondansetron Inj 2 Mg/Ml Inj 2 Ml IVP 10/09/24 13:34 Q6H PRN NAUSEA OR VOMITING Protocol Oseltamivir Phosphate 30 mg 09/09/24 15:15 09/09/24 16:19 Oseltamivir 30 Mg Capsule PO 09/16/24 15:14 30 mg QDAY GOLDIE Administration Pantoprazole Sodium 40 mg 09/09/24 20:45 09/09/24 21:07 Pantoprazole 40 Mg Tablet PO 10/09/24 20:44 40 mg DAILY GOLDIE Administration Sennosides 1 tab 09/09/24 13:35 Senna Tablet PO 10/09/24 13:34 QDAY PRN constipation Protocol
[2024-09-10 09:10] LABS: INR 0.9 (0.9-1.3); Partial Thromboplastin Time 24.8 Seconds (22.0-36.0); Prothrombin Time 10.3 Seconds (9.0-12.2)
[2024-09-10] MEDS: BUMETANIDE INJ 0.25 MG/ML VIAL 4 ML 2 MG IVP ×2 (09:30→20:59)
[2024-09-10] MEDS: PANTOPRAZOLE 40 MG TABLET PO (09:32)
[2024-09-10] MEDS: OSELTAMIVIR 30 MG CAPSULE PO (09:32)
--- NOTE | 2024-09-10 09:40 | PC.SS ---
FACEPIECE LINE SUPERVISOR conducted bedside contact with the patient conduct initial assessment and to discuss discharge planning.? Patient confirmed demographic information.? Patient resides alone at home.? Patient utilizes a walker to assist with ambulation.? Patient does not utilize home oxygen.? Currently on 1.5 L of oxygen.? Patient requires assistance with completion of ADL?s.? Patient aligned with [facility].? Per patient, [facility] staff conducts daily contact with the patient.? Patient identified son, Robert Bautista ; as surrogate medical decision maker.? Patient?s PCP is Cathie Oconnell.? Dr. Navas is the patient?s oncology rep specialist.? Patient does not possess any other specialty providers.? Patient utilizes [facility]; for medication services.? Patient reports history of anxiety.? Patient prescribed Buspar.? FACEPIECE LINE SUPERVISOR discussed with patient discharge plan.? Discharge plan is for the patient to return home.? If home oxygen required no preferred vendor identified.? If home health recommended no preferred agency identified.? If SNF placement is recommended patient receptive to short term placement.? No preferred SNF identified.? Patient will require 3 midnight stay if SNF is discharge plan.? Patient possesses coverage for transport services.? No further discharge needs identified by the patient.? No further intervention required at this time, social human services assistants will be available to address any further concerns.? Next of Kin: Robert Michele D/C Plan: Home
[2024-09-10] MEDS: Magnesium Sulfate 2 GM Ivpb 2 GM/50 ML BAG IV (11:08)
--- NOTE | 2024-09-10 13:26 | ESPR_ITS ---
<Statement entered by Deejay Maldonado MD - 09/10/24 19:44> Patient seen and examined at bedside, no acute overnight events. I discussed and supervised with the commander internal affairs physician who took care of this patient. I personally saw and examined the patient. I agree with most of the assessment and plan. Patient remains comfortable. Denies shortness of breath. Minimal improvement in edema. Continuing current management of CHF exacerbation. Home meds resumed. Plan of care discussed with attending Dr. Fajardo. Deejay Maldonado MD PGY-2 Documentation for date of: 09/10/24 Subjective Subjective Interval history: No acute events overnight Patient with nasal cannula in place but no shortness of breath, reports some mouth tightness and bilateral toes. Patient has strict fluid restrictions 1.5 L/day Patient daughter at bedside (Shanice) Exam Vital Signs Temp Pulse Resp BP Pulse Ox O2 Del Method O2 Flow Rate 97.7 F 60 14 123/80 99 Room Air 2 09/10/24 12:00 09/10/24 12:00 09/10/24 12:00 09/10/24 12:00 09/10/24 12:00 09/10/24 12:00 09/10/24 11:41 24-hour vital signs reviewed blood pressure elevated to 140s. Otherwise stable within normal limits, Narrative Exam GENERAL: no acute distress, AAO x3, sitting laying in bed HEENT: Head AT/ NC. NECK: unable to assess JVD given loose skin around neck CARDIOVASCULAR: RRR. Normal S1/S2, No m/r/g. Right greater than left lower extremity edema, 4+ pitting of RLE to the mid urena and 2+ pitting to the knees bilaterally RESPIRATORY: CTAB. No wheezing, rhonchi, crackles. GASTROINTESTINAL: Abdomen soft, non tender no palpable masses. Bowel sounds present, no suprapubic tenderness to deep palpation MUSCULOSKELETAL:? No cyanosis or edema, no visible joint swelling. NEUROLOGICAL: CN II-XII grossly intact. No focal deficits. Moving all 4 extremities, ANO x 3 PSYCHIATRIC: Awake and alert, not agitated, normal mood and affect. SKIN: No obvious rashes, no jaundice, some skin wrinkling noted on lower extremities Objective Labs 09/10/24 05:00 09/10/24 05:00 Labs: Laboratory Results - last 24 hr 09/09/24 09/09/24 09/09/24 12:59 14:45 16:35 WBC RBC Hgb Hct MCV MCH MCHC RDW Std Deviation Plt Count Neut % (Auto) Lymph % (Auto) Gates % (Auto) Eos % (Auto) Baso % (Auto) Neut # (Auto) Lymph # (Auto) Gates # (Auto) Eos # (Auto) Baso # (Auto) Immature Gran # (Auto) Absolute Nucleated RBC Immature Gran % Nucleated RBC % PT 11.2 INR 1.0 APTT D-Dimer 307 Sodium 139 Potassium 3.3 L Chloride 107 Carbon Dioxide 20.2 Anion Gap 12 BUN 19 Creatinine 1.4 H Estim Creat Clear Calc 25.0 L eGFR 36 L BUN/Creatinine Ratio 14 Glucose 135 H Calculated Osmolality 281 Lactic Acid Calcium 7.9 L Corrected Calcium 8.9 Phosphorus Magnesium 1.8 Total Bilirubin 0.3 AST 21 ALT 23 Alkaline Phosphatase 100 Troponin I < 0.020 B-Natriuretic Peptide 296 H Total Protein 5.1 L Albumin 2.8 L Globulin 2.3 Albumin/Globulin Ratio 1.2 Procalcitonin 0.11 TSH 3.66 Ur Collection Type Voided Urine Color Colorless A Urine Clarity Clear Urine pH 6.0 Ur Specific [place] 1.008 Urine Protein Negative Urine Glucose (UA) Negative Urine Ketones Negative Urine Blood Negative Urine Nitrite Negative Urine Bilirubin Negative Urine Urobilinogen (Auto) Negative Ur Leukocyte Esterase Positive Urine RBC 1 Urine WBC 3 Ur Squamous Epith Cells 2 Urine Bacteria Rare 09/09/24 09/10/24 09/10/24 16:54 05:00 07:52 WBC 5.2 D RBC 2.95 L Hgb 9.7 L Hct 30.0 L MCV 102 H MCH 32.9 MCHC 32.3 RDW Std Deviation 58.5 H Plt Count 459 H Neut % (Auto) 66 Lymph % (Auto) 21 Gates % (Auto) 11 Eos % (Auto) 2 Baso % (Auto) 1 Neut # (Auto) 3.4 Lymph # (Auto) 1.1 Gates # (Auto) 0.6 Eos # (Auto) 0.1 Baso # (Auto) 0.0 Immature Gran # (Auto) 0.02 H Absolute Nucleated RBC 0.00 Immature Gran % 0 Nucleated RBC % 0 PT 10.3 INR 0.9 APTT 24.8 D-Dimer Sodium 144 Potassium 4.1 D Chloride 107 Carbon Dioxide 27.7 Anion Gap 9 BUN 18 Creatinine 1.2 Estim Creat Clear Calc 29.2 L eGFR 44 L BUN/Creatinine Ratio 15 Glucose 75 D Calculated Osmolality 287 Lactic Acid 1.6 Calcium 7.9 L Corrected Calcium 9.1 Phosphorus 3.3 Magnesium 1.9 Total Bilirubin 0.3 AST 16 ALT 19 Alkaline Phosphatase 97 Troponin I < 0.020 B-Natriuretic Peptide Total Protein 4.6 L Albumin 2.5 L Globulin 2.1 L Albumin/Globulin Ratio 1.2 Procalcitonin TSH Ur Collection Type Urine Color Urine Clarity Urine pH Ur Specific [place] Urine Protein Urine Glucose (UA) Urine Ketones Urine Blood Urine Nitrite Urine Bilirubin Urine Urobilinogen (Auto) Ur Leukocyte Esterase Urine RBC Urine WBC Ur Squamous Epith Cells Urine Bacteria White count down 5 today from 11 Creatinine 1.2 from 1.4 MRSA nares pending Urine culture pending Blood cultures no growth to date at 24 hours Quality Measures Quality Measures VTE prophylaxis Advance care planning discussed with:: patient and child Assessment & Plan Assessment Current Active Medications: Generic Name Dose Route Start Last Admin Trade Name Freq PRN Reason Stop Dose Admin Acetaminophen 650 mg 09/09/24 13:35 Acetaminophen 325 Mg Tablet PO 10/09/24 13:34 Q6H PRN Fever >100.4 Acetaminophen 650 mg 09/09/24 13:35 Acetaminophen 325 Mg Tablet PO 10/09/24 13:34 Q6H PRN PAIN SCALE 1-3 (mild Bumetanide 2 mg 09/09/24 13:45 09/10/24 09:30 Bumetanide Inj 0.25 Mg/Ml Vial 4 Ml IVP 10/09/24 13:44 2 mg BID GOLDIE Administration Ondansetron HCl 4 mg 09/09/24 13:35 Ondansetron Inj 2 Mg/Ml Inj 2 Ml IVP 10/09/24 13:34 Q6H PRN NAUSEA OR VOMITING Protocol Oseltamivir Phosphate 30 mg 09/09/24 15:15 09/10/24 09:32 Oseltamivir 30 Mg Capsule PO 09/16/24 15:14 30 mg QDAY GOLDIE Administration Pantoprazole Sodium 40 mg 09/09/24 20:45 09/10/24 09:32 Pantoprazole 40 Mg Tablet PO 10/09/24 20:44 40 mg DAILY GOLDIE Administration Sennosides 1 tab 09/09/24 13:35 Senna Tablet PO 10/09/24 13:34 QDAY PRN constipation Protocol Plan 87-year-old female with a past medical history of Takotsubo cardiomyopathy with an EF Estimated EF 55-60% in 07/2023, afib on apixiban, (followed by Dr. Bar), NSTEMI, recent history of fall without head strike 3 weeks ago, essential HTN, HLD,, mild dementia, depression, GERD, PUD s/p gastric esophageal surgery, former smoker with more than 25 pack years of smoking history 15 years ago, occasional alcohol use, and constipation, who presented to Dr. Bar clinic today and was noted to have 4+ edema BLE, most concerning for CHF exacerbation started on 2 mg Bumex IV. Preliminary infectious workup revealed leukocytosis, influenza A/B+, viral pneumonia suspected, continue on Tamiflu, and restarted home meds. Discussed with nursing staff the importance of strict ins and outs measurements and taking accurate daily weights. #Acute CHF exacerbation #Hx of Takotsubo cardiomyopathy #HFpEF (EF 55-60% in 07/2023) Per patient she has been having increased work of breathing over the past few days with exertion, patient notes that her legs are less edematous when she wears compression socks however she was not wearing them today she endorses taking her medications as prescribed. Patient does not report symptoms of cough, but does endorse 9 out of 10 bilateral lower extremity pain PureWick catheter in place given aggressive diuresis and concern for fall. Dx * Bilateral lower extremity ultrasound to evaluate lower extremity edema and pain: No DVT * Consider IVC ultrasound to assess volume status given unable to assess JVD on physical exam * BNP elevated at 296Tx * Holding home sacubitril/valsartan 1 tab twice daily given concern for renal function during diuresis * Physical exam today shows bilateral lower extremity edema 4+ right, 3+ left, to the knees Tx * Strict ins and outs, with fluid restriction 1500 mL: Continue to reinforce with nursing staff * Daily weights: Continue to reinforce with nursing staff * IV Bumex 2 mg twice daily per cardiology recommendations #Influenza A/B+ #Left lower lobe viral pneumonia #Leukocytosis SIRS criteria: Mild leukocytosis, not tachycardic not hypotensive SOFA score 2 for creatinine 1.4 Bacterial versus viral pneumonia. Viral pneumonia more likely given procalcitonin levels are within normal limits and patient tested positive for influenza WBC mildly elevated at 11.8 continue to monitor Dx -Lactic acid within normal limits -UA positive for leukocyte esterase and 3 WBC however nitrites negative; low level of suspicion for UTI at this time given lack of LUTS and urine negative nitrites, antibiotics not indicated at this time -Pending urine culture - Blood cultures no growth to date at 24 hours Tx - Tamiflu 75 mg daily for 5-day course (09/09 -09/14) - Antibiotics not indicated at this time given likely viral etiology #BO secondary to sepsis with end organ damage?resolved Creatinine was initially elevated from baseline, consider pre versus intra versus postrenal etiologies, BUN/creatinine ratio of 14. Initially concerned for prerenal etiology given patient is likely third spacing as evidenced by bilateral lower extremity edema 4+ on exam. Creatinine within normal limits today, continue to monitor creatinine worsen given current plan for IV diuresis, continue to monitor - Daily CMP #Electrolyte abnormalities -Daily CMP with mg and Phos -Replete as needed Chronic #History of pulmonary hypertension #hx NSTEMI Patient followed by Dr. Bar #Fall Patient with history of fall 3 weeks ago with fractured right rib seen at [facility], no head strike of note the patient is on apixaban - Consult PT, appreciate recs (physical therapy recommends home health with PT/OT, home safety assessment to decrease future risk of fall #HTN -Home metoprolol 50 mg daily #HLD - Home atorvastatin 40 mg p.o. at bedtime #GERD #hx PUD - pansoprazole 40 mg qd #Afib on apixiban - Home apixiban 2.5 mg twice daily - Home amiodarone 200 mg twice daily #Depression - Home mirtazapine 15 mg p.o. at bedtime - Home buspirone 5 mg twice daily #Dementia Continue delirium precautions avoid nighttime waking for lab draws, continue to monitor for agitation. Dispo: To home, patient has in-home advisor named Collette Lopes, who helps with IADLs. Patient is independent of ADLs with walker, physical therapy recommends home with home health for PT/OT and safety assessment Diet: Regular diet Bowel Reg: Senna 1 tab p.o. daily as needed VTE ppx: Pauda score 11, pharmacologic VTE PPx indicated, on apixaban at home follow-up on dosing GI ppx: pansoprazole 40 mg qd Code status: DNR Case discussed with my senior resident Dr. Maldonado Case discussed with my attending Dr. Tana Howard MD PGY-1 Attending Provider Attestation/Addendum IMary, , attest that I was physically present for the berry portions of the service and evaluated the patient with the resident and I reviewed and discussed the case with the resident and agree with the resident's findings and plans of care as documented above Patient seen and evaluated this AM. Daughter at bedside. Patient has purewick in place and I's and O's do not appear to be accurate despite bumex. Patient does endorse feeling that the purewick may be leaking too. Case discussed with cardio, will continue with IV diuresis. Patient continues to have 3+ pitting edema in b/l LE, mild wrinkling of skin noted. Mild bibasilar crackles noted. Patient denies any shortness of breath and remains comfortable on room air.
[2024-09-10] MEDS: METOPROLOL SUCCINATE XL 25 MG TABCR 50 MG PO (14:23)
[2024-09-10] MEDS: AMIODARONE HCL 200 MG TABLET PO ×2 (14:24→21:01)
[2024-09-10] MEDS: SPIRONOLACTONE 25 MG TABLET PO (14:24)
[2024-09-10] MEDS: FOLIC ACID 1 MG TABLET PO (14:25)
[2024-09-10] MEDS: APIXABAN 2.5 MG TABLET PO ×2 (14:25→21:00)
--- NOTE | 2024-09-10 15:20 | PD.RESCONSUL ---
HPI Data of Consult Requesting Physician: Mary Fajardo DO Admitting Provider: Mary Fajardo DO Attending Provider: Mary Fajardo DO Primary Care Provider: Clayton Rodriguez PA-C Consult Narrative History of present illness: The patient is an 88-year-old female, with past medical history significant for Takotsubo cardiomyopathy with LVEF 55 to 60 % in July 2023, previous normal LHC, PAH with RVSP of 50 mmHg, primary hypertension, paroxysmal atrial fibrillation, hyperlipidemia, mild dementia, depression, GERD, peptic ulcer disease s/p gastric esophageal surgery, ex-smoker with more than 25 packs year of smoking history 15 years ago, and constipation presented to ED with chief complaint of bilateral lower limb edema with 9/10 pain. The patient's Bumex dose was increased from 1 mg twice daily to 2 mg twice daily about 10 days ago, but her lower limb edema did not improve. She admitted that she had generalized lower extremity weakness and occasional lightheadedness, that is partially improved on sitting down. The patient has been compliant with compression socks as well as medications. The patient was also recently admitted to [facility] for right rib fracture after a fall 3 weeks ago, and has been having worsening of SOB. She denied any chest pain, palpitations, but admitted mild orthopnea. She denied any fever or chills, or any urinary symptoms. During our evaluation, her vitals were blood pressure 110/91, pulse rate ranging from 60-90, RR 18, saturating 98% on room air. CBC was fairly at baseline, with a stable white count, CMP is stable. EKG was significant for A-fib with HR 94, QTc 467. Bilateral lower extremity Doppler ultrasound was negative for DVT. Head CT was negative for acute hemorrhage, mass effect or midline shift. Chest x-ray was significant for left base pneumonia. TTE done yesterday on 09/09/2024 revealed: Normal LV size and function. Estimated EF 55-60%. Diastolic function Normal RV size and function. Estimated RVSP around 35 mm hg. Severe LA dilataion. Moderate to severe MR. Mild RA Moderate TR. Mild PI. Moderate to severe aortic valve sclerosis without stenosis. Left Pleural Effusion. No Pericardial Effusion. PMH: As mentioned above SHX: Gastroesophageal surgery secondary to gastric ulcer Family history: Father and mother both had ACS, and both due to heart attack, brother had quadruple bypass, heart failure and hypertension. Social history: Former smoker with [id number] smoking history, quit 15 years ago, occasional alcohol use, denied any illicit drug use. Medications: Tylenol 3 25 Mg as needed, amiodarone 200 Mg twice daily, atorvastatin 40 Mg twice daily, buspirone 5 Mg twice daily, Eliquis 2.5 Mg twice daily, folic acid 1 Mg daily, Bumex 2 Mg twice daily, metoprolol succinate 50 Mg daily, mirtazapine 15 Mg daily at night, pantoprazole 40 Mg twice daily, Entresto 1 tab twice daily, spironolactone 25 Mg daily. Cardiology consultation was done for further management of HFpEF exacerbation with severe bilateral edema resistant to outpatient diuretics. cc:: cc: Mary Fajardo DO Review of Systems Review of Systems Systems Reviewed: All systems reviewed, normal except as documented Exam Vital Signs Temp Pulse Resp BP Pulse Ox O2 Del Method O2 Flow Rate 97.7 F 66 14 122/76 99 Room Air 2 09/10/24 12:00 09/10/24 14:24 09/10/24 12:00 09/10/24 14:24 09/10/24 12:00 09/10/24 12:00 09/10/24 11:41 Narrative Exam General: No acute distress, Alert and Oriented x 3 HEENT: Moist mucous membranes, oropharynx clear Neck: Supple, No masses, No JVD CVS: S1S2 Regular rate and rhythm, No murmurs, rubs or gallops Lungs: Clear to auscultation with no accessory use, no wheeze no rhonchi Abd: Soft, NT/ND, +BS, no organomegaly Ext: 3-4+ edema on right lower extremity, left lower extremity with 2+ edema, difficult to palpate peripheral pulses Skin: No rash Psych: Appropriate mood and affect Results Labs 09/10/24 05:00 09/10/24 05:00 Labs: Short CBC 09/10/24 Range/Units 05:00 WBC 5.2 D (3.6-11.0) Thou/mm3 Hgb 9.7 L (12.0-16.0) g/dL Hct 30.0 L (36.0-46.0) % Plt Count 459 H (140-440) Thou/mm3 BMP 09/10/24 05:00 Sodium 144 Potassium 4.1 D Chloride 107 Carbon Dioxide 27.7 BUN 18 Creatinine 1.2 Glucose 75 D Calcium 7.9 L Cardiac Enzymes 09/09/24 Range/Units 16:54 Troponin I < 0.020 (0.0-0.045) ng/mL Liver Function 09/10/24 Range/Units 05:00 Total Bilirubin 0.3 (0.3-1.2) mg/dL AST 16 (0-34) U/L ALT 19 (10-49) U/L Alkaline Phosphatase 97 (46-116) U/L Albumin 2.5 L (3.4-4.8) gm/dL Urine 09/09/24 Range/Units 16:35 Urine Color Colorless A (Lt Yel-Yel) Urine Clarity Clear (Clear/Hazy) Urine pH 6.0 (5.0-7.0) Ur Specific [place] 1.008 (1.001-1.035) Urine Protein Negative (Neg - Trace) Urine Glucose (UA) Negative (Negative) Quality Measures Quality Measures VTE prophylaxis Advance care planning discussed with:: patient Medications Home Medications and Allergies Home Medications ?Medication ?Instructions ?Recorded ?Confirmed ?Type buspirone 5 mg tablet 5 mg PO BID 09/17/22 09/10/24 History acetaminophen 325 mg tablet 325 mg PO PRN PRN Pain (Scale 07/11/23 09/10/24 History (Tylenol) Score 1-3) buspirone 5 mg tablet 5 mg PO BID 07/11/23 09/10/24 History ferrous sulfate 325 mg (65 mg 325 mg PO BID 07/11/23 09/10/24 History iron) capsule,extended release folic acid 1 mg tablet 1 mg PO DAILY 07/11/23 09/10/24 History furosemide 40 mg tablet (Lasix) 40 mg PO QDAY 07/11/23 09/10/24 History magnesium 100 mg capsule 400 mg PO DAILY 07/11/23 09/10/24 History pantoprazole 40 mg tablet,delayed 40 mg PO BID 07/11/23 09/10/24 History release potassium chloride 8 mEq 8 meq PO DAILY 07/11/23 09/10/24 History tablet,extended release sacubitril 24 mg-valsartan 26 mg 1 tab PO BID 07/11/23 09/10/24 History tablet (Entresto) spironolactone 25 mg tablet 25 mg PO DAILY 07/11/23 09/10/24 History Allergies Allergy/AdvReac Type Severity Reaction Status Date / Time tramadol Allergy Intermediate UPSETS Verified 09/09/24 14:28 STOMACH,DOESN'T FEEL GOOD Visit Medications Acetaminophen (Acetaminophen 325 Mg Tablet) 650 mg PO Q6H PRN PRN Reason: Fever >100.4 Stop: 10/09/24 13:34 Acetaminophen (Acetaminophen 325 Mg Tablet) 650 mg PO Q6H PRN PRN Reason: PAIN SCALE 1-3 (mild Stop: 10/09/24 13:34 Amiodarone HCl (Amiodarone Hcl 200 Mg Tablet) 200 mg PO BID [facility] Stop: 10/10/24 13:29 Last Admin: 09/10/24 14:24 Dose: 200 mg Apixaban (Apixaban 2.5 Mg Tablet) 2.5 mg PO BID [facility] Stop: 10/10/24 13:29 Last Admin: 09/10/24 14:25 Dose: 2.5 mg Atorvastatin Calcium (Atorvastatin Calcium 20 Mg Tablet) 40 mg PO HS [facility] Stop: 10/10/24 20:59 Bumetanide (Bumetanide Inj 0.25 Mg/Ml Vial 4 Ml) 2 mg IVP BID [facility] Stop: 10/09/24 13:44 Last Admin: 09/10/24 09:30 Dose: 2 mg Buspirone HCl (Buspirone Hcl 5 Mg Tablet) 5 mg PO BID [facility] Stop: 10/10/24 13:44 Last Admin: 09/10/24 14:25 Dose: 5 mg Folic Acid (Folic Acid 1 Mg Tablet) 1 mg PO DAILY [facility] Stop: 10/10/24 13:44 Last Admin: 09/10/24 14:25 Dose: 1 mg Metoprolol Succinate (Metoprolol Succinate Xl 25 Mg Tabcr) 50 mg PO QDAY [facility] Stop: 10/10/24 13:44 Last Admin: 09/10/24 14:23 Dose: 50 mg Mirtazapine (Mirtazapine 15 Mg Tablet) 15 mg PO HS [facility] Stop: 10/10/24 20:59 Ondansetron HCl (Ondansetron Inj 2 Mg/Ml Inj 2 Ml) 4 mg IVP Q6H PRN; Protocol PRN Reason: NAUSEA OR VOMITING Stop: 10/09/24 13:34 Oseltamivir Phosphate (Oseltamivir 30 Mg Capsule) 30 mg PO QDAY [facility] Stop: 09/16/24 15:14 Last Admin: 09/10/24 09:32 Dose: 30 mg Pantoprazole Sodium (Pantoprazole 40 Mg Tablet) 40 mg PO DAILY [facility] Stop: 10/09/24 20:44 Last Admin: 09/10/24 09:32 Dose: 40 mg Sennosides (Senna Tablet) 1 tab PO QDAY PRN; Protocol PRN Reason: constipation Stop: 10/09/24 13:34 Spironolactone (Spironolactone 25 Mg Tablet) 25 mg PO DAILY [facility] Stop: 10/10/24 13:44 Last Admin: 09/10/24 14:24 Dose: 25 mg Discontinued Medications Bumetanide (Bumetanide Inj 0.25 Mg/Ml Vial 4 Ml) 2 mg IVP BID [facility] Stop: 10/09/24 20:59 Magnesium Sulfate (Magnesium Sulfate Ivpb) 2 gm in 50 mls @ 25 mls/hr IV X1 ONE Stop: 09/09/24 22:43 Last Admin: 09/09/24 21:06 Dose: 25 mls/hr Magnesium Sulfate (Magnesium Sulfate Ivpb) 2 gm in 50 mls @ 25 mls/hr IV X1 ONE Stop: 09/10/24 11:22 Last Admin: 09/10/24 11:08 Dose: 25 mls/hr Potassium Chloride (Potassium Chloride 10% 20 Meq/15 Ml Udc) 40 meq PO X1 ONE Stop: 09/09/24 13:43 Last Admin: 09/09/24 14:34 Dose: 40 meq Assessment & Plan Plan The patient is an 88-year-old female, with past medical history significant for Takotsubo cardiomyopathy with LVEF 55 to 60 % in July 2023, previous normal LHC, PAH with RVSP of 50 mmHg, primary hypertension, paroxysmal atrial fibrillation, hyperlipidemia, mild dementia, depression, GERD, peptic ulcer disease s/p gastric esophageal surgery, ex-smoker with more than 25 packs year of smoking history 15 years ago, and constipation presented to ED with chief complaint of bilateral lower limb edema with 9/10 pain. Cardiology consultation was done for further management of HFpEF exacerbation with severe bilateral edema resistant to outpatient diuretics. #HFpEF exacerbation (EF 55-60% in 07/2023) #Resistant BL LL edema #History of Takotsubo cardiomyopathy #Moderate MR #Mild PAH #Possible cardiorenal syndrome The patient initially presented to cardiology clinic with concern regarding severe bilateral lower limb edema, that has been resistant to increased dose of oral Bumex 2 mg twice daily, associated with bilateral leg pain. TTE on 09/09/2024 revealed: Normal LV size and function. Estimated EF 55-60%. Diastolic function Normal RV size and function. Estimated RVSP around 35 mm hg. Severe LA dilataion. Moderate to severe MR. Mild RA Moderate TR. Mild PI. Moderate to severe aortic valve sclerosis without stenosis. Left Pleural Effusion. No Pericardial Effusion. - Continue with Bumex 2 mg IV twice daily, mild improvement in BO suggestive of improvement in possible cardiorenal syndrome. - Strict ins and outs - Daily fluid intake of 1500 cc, Incorporated in diet - Low-sodium diet of 2 g daily - Continue with metoprolol succinate 50 Mg daily, spironolactone 25 Mg daily and consider adding Entresto after BO is resolved. #Atrial fibrillation #Hypertension #Electrolyte abnormalities - Maintain magnesium and potassium greater than 2 and 4 respectively at all time - Replete other electrolytes as needed - Eliquis 2.5 Mg twice daily - Amiodarone 200 Mg twice daily - Metoprolol succinate 50 Mg daily, and start on Entresto after BO is resolved - Telemetry monitoring #Hyperlipidemia -Continue with home atorvastatin 40 Mg twice daily #Recent ground-level fall #Depression #Mild dementia -Management deferred to primary hospitalist team Thank you for cardiology consultation. We really appreciate the opportunity to participate in this patient care. Cardiology will continue to follow-up on this patient. The patient's management plan was discussed with my attending physician MD Carloz Marrero MD, PGY3 Attending Provider Attestation/Addendum I have personally seen and examined the patient separately on the above date of service and discussed the plan of care with the resident. I reviewed the resident Dr. Carloz Hodges consultation progress note and agree with the resident findings and plan in the note above and have also edited the documentation to reflect my findings and plan. 88-year-old female with a past medical history of Diastolic CHF with an EF of around 55 to 60%, history of systolic CHF 35 to 40% secondary to Takotsubo cardiomyopathy improved to 55 to 60% with medical treatment and normal LHC in 2022, permanent atrial fibrillation on anticoagulation, mild to moderate PAH, essential hypertension, hyperlipidemia, mild dementia versus cognitive deficiency, GERD, peptic ulcer disease, status post gastroesophageal surgery, ex-smoker with more than [id number] smoking history, chronic constipation was sent to the emergency department as she continued to have bilateral lower extremity swelling that was not responding to outpatient diuretic therapy. Patient well-known to [facility] for the past 2 years and her last admission here was 2 years ago when she was initially diagnosed with severe systolic CHF with EF of 35 to 40% secondary to Takotsubo cardiomyopathy as LHC at the time in 2022 showed normal coronaries. Patient was treated with goal-directed medical management and patient EF is improved to 55 to 60%. Patient has history of CHF secondary to the diastolic dysfunction as well as mild to moderate PAH. She was on Bumex 1 mg twice daily and recently patient had some dietary indiscretion and has been having worsening leg swelling. Her Bumex was increased to 2 mg twice a day for 10 days and was recommended to follow-up with repeat blood work. No labs were performed and patient still continued to have 2-3+ leg swelling and hence was recommended admission for aggressive IV diuresis. 1. Acute on chronic diastolic CHF exacerbation 2. Permanent atrial fibrillation 3. Mild to moderate PAH 4. Valvular heart disease with moderate TR as well as moderate MR. 5. History of Takotsubo cardiomyopathy with normal LHC 2022. Patient presents with acute on chronic diastolic CHF exacerbation and now admitted for aggressive IV diuresis with Bumex 2 mg IV twice daily. Patient recommended to limit fluid intake to 5000 cc/day. 60 mL output, daily weights and 2 g sodium diet. Continue goal-directed medical therapy with Entresto metoprolol and spironolactone. Continue to monitor the renal function closely. Can hold off on the beta-wilber if blood pressure is low. Further evaluation of the labs showed that the patient does have hypoalbuminemia with albumin around 2.5 total protein of only 4.6. Mostly secondary to poor oral intake. Rest of the LFTs appear normal indicating no significant evidence of any liver disease patient would benefit from IV diuretics with IV albumin 30 minutes before Bumex. Patient atrial fibrillation is permanent atrial fibrillation and she had unsuccessful cardioversion in September 2019 for which she. She is well rate controlled on amiodarone and metoprolol XL. She did not cardiovert even with pharmacotherapy and patient does have severe LA dilatation and is also not an ideal candidate for any kind of A-fib ablation. Continue with rate control for now. Valvular heart disease with moderate MR, moderate TR as well as moderate aortic valve sclerosis without stenosis. Patient does have mild to moderate PAH mostly secondary to the left heart dysfunction along with the valvular heart disease. Continue diuretics and keep patient euvolemic. Management of rest of the medical conditions as per primary team and other consultants. Thank you for the consult and allowing me to participate in the care of the patient. Cardiology will continue to follow. Napoleon Bar M.D. Interventional Cardiology
--- NOTE | 2024-09-10 17:06 | PC.LAC ---
Report given to He YUSUF pt transferred to med surg
[2024-09-10] MEDS: MIRTAZAPINE 15 MG TABLET PO (21:00)
[2024-09-10] MEDS: ATORVASTATIN CALCIUM 20 MG TABLET 40 MG PO (21:00)
[2024-09-11] VITALS (12 sets, daily range): BP systolic 125–144; BP diastolic 68–90; PULSE 53–102; RESP 15–95; TEMP 36.1–36.7; O2SAT 96–99; BMI 20.5; BMI 13.0
[2024-09-11 06:07] LABS: Basophils # (Auto) 0.1 Thou/mm3 (0.0-0.2); Basophils % (Auto) 1 % (0-2.5); Eosinophils # (Auto) 0.2 Thou/mm3 (0.0-0.5); Eosinophils % (Auto) 3 % (0-10); Hematocrit 28.1 % (36.0-46.0); Hemoglobin 9.4 g/dL (12.0-16.0); Immature Granulocytes Auto 0.07 Thou/mm3 (0.00-0.00); Lymphocytes # (Auto) 1.0 Thou/mm3 (1.0-4.8); Lymphocytes % (Auto) 17 % (10-50); Mean Corpuscular HGB Conc 33.5 g/dl (31.0-37.0); Mean Corpuscular Hemoglobin 32.1 pg (25.0-35.0); Mean Corpuscular Volume 96 fL (80-100); Monocytes # (Auto) 0.6 Thou/mm3 (0.0-0.8); Monocytes % (Auto) 10 % (0-12); Neutrophils # (Auto) 4.2 Thou/mm3 (1.8-7.7); Neutrophils % (Auto) 68 % (37-80); Nucleated Red Blood Cell # 0.00 Thou/mm3 (0.00-0.00); Nucleated Red Blood Cell % 0 /100 WBC (0); Platelet Count 412 Thou/mm3 (140-440); RDW Standard Deviation 56.2 fL (36.4-46.3); Red Blood Count 2.93 Miln/mm3 (4.00-5.20); White Blood Count 6.2 Thou/mm3 (3.6-11.0)
[2024-09-11 06:43] LABS: Alanine Aminotransferase 16 U/L (10-49); Albumin, Serum 2.3 gm/dL (3.4-4.8); Albumin/Globulin Ratio 1.2 (1.2-2.2); Alkaline Phosphatase 87 U/L (46-116); Anion Gap 12 (7-16); Aspartate Amino Transferase 23 U/L (0-34); BUN/Creatinine Ratio 14 Ratio (12-20); Bilirubin,Total 0.2 mg/dL (0.3-1.2); Blood Urea Nitrogen 17 mg/dL (9-23); Calcium 7.6 mg/dL (8.3-10.6); Calcium (Corrected) 9.0 mg/dL (8.5-10.1); Carbon Dioxide 27.1 mMol/L (20.0-31.0); Chloride 104 mMol/L (98-107); Creatinine (Component) 1.2 mg/dL (0.6-1.3); Estimated Creatinine Clearance 28.6 mL/min (>60); Globulin 2.0 gm/dL (2.3-3.5); Glucose 82 mg/dL (74-106); Magnesium 1.7 mg/dL (1.6-2.6); Osmolality,Calculated 285 (275-295); Phosphorous 3.5 mg/dL (2.4-5.1); Potassium 4.2 mMol/L (3.4-5.1); Sodium 143 mMol/L (136-145); Total Protein 4.3 gm/dL (5.7-8.2); eGFR 44 See Note
--- NOTE | 2024-09-11 07:28 | ESPR_ITS ---
<Statement entered by Deejay Maldonado MD - 09/11/24 14:57> Patient seen and examined at bedside, no acute overnight events. I discussed and supervised with the internal security manager physician who took care of this patient. I personally saw and examined the patient. I agree with most of the assessment and plan. Patient doing well, legs still very edematous but improving. Patient started on entresto per cario recs, continuing diuresis. Plan of care discussed with attending Dr. Newton. Deejay Maldonado MD PGY-2 Documentation for date of: 09/11/24 Subjective Subjective Interval history: No acute events overnight. Patient seen eating breakfast and enjoying fruit Exam Vital Signs Temp Pulse Resp BP Pulse Ox O2 Del Method O2 Flow Rate 96.9 F 64 17 144/79 H 98 Room Air 2 09/11/24 04:00 09/11/24 04:00 09/11/24 04:00 09/11/24 04:00 09/11/24 04:00 09/11/24 04:00 09/10/24 11:41 24-hour vital signs stable, patient has not required oxygen while in room on exam, satting well on room air Narrative Exam GENERAL: no acute distress, AAO x3, sitting laying in bed HEENT: Head AT/ NC. NECK: unable to assess JVD given loose skin around neck CARDIOVASCULAR: RRR. Normal S1/S2, No m/r/g. Right greater than left lower extremity edema, 3+ pitting of RLE to the mid urena and 2+ pitting to the knees bilaterally RESPIRATORY: CTAB. No wheezing, rhonchi, crackles. GASTROINTESTINAL: Abdomen soft, non tender no palpable masses. Bowel sounds present, no suprapubic tenderness to deep palpation MUSCULOSKELETAL:? No cyanosis or edema, no visible joint swelling. NEUROLOGICAL: CN II-XII grossly intact. No focal deficits. Moving all 4 extremities, PSYCHIATRIC: Awake and alert, not agitated, normal mood and affect. SKIN: No obvious rashes, no jaundice, more skin wrinkling noted on lower extremitie, several large ecchymoses on patient arm bilaterally, on patient left dorsal wrist skin abrasion with Band-Aid in place Objective Labs 09/11/24 04:54 09/11/24 04:54 Labs: Laboratory Results - last 24 hr 09/10/24 09/11/24 07:52 04:54 WBC 6.2 RBC 2.93 L Hgb 9.4 L Hct 28.1 L MCV 96 MCH 32.1 MCHC 33.5 RDW Std Deviation 56.2 H Plt Count 412 D Neut % (Auto) 68 Lymph % (Auto) 17 Osborne % (Auto) 10 Eos % (Auto) 3 Baso % (Auto) 1 Neut # (Auto) 4.2 Lymph # (Auto) 1.0 Osborne # (Auto) 0.6 Eos # (Auto) 0.2 Baso # (Auto) 0.1 Immature Gran # (Auto) 0.07 H Absolute Nucleated RBC 0.00 Immature Gran % 1 H Nucleated RBC % 0 PT 10.3 INR 0.9 APTT 24.8 Sodium 143 Potassium 4.2 Chloride 104 Carbon Dioxide 27.1 Anion Gap 12 BUN 17 Creatinine 1.2 Estim Creat Clear Calc 28.6 L eGFR 44 L BUN/Creatinine Ratio 14 Glucose 82 Calculated Osmolality 285 Calcium 7.6 L Corrected Calcium 9.0 Phosphorus 3.5 Magnesium 1.7 Total Bilirubin 0.2 L AST 23 ALT 16 Alkaline Phosphatase 87 Total Protein 4.3 L Albumin 2.3 L Globulin 2.0 L Albumin/Globulin Ratio 1.2 Quality Measures Quality Measures VTE prophylaxis Advance care planning discussed with:: patient Assessment & Plan Assessment Current Active Medications: Generic Name Dose Route Start Last Admin Trade Name Freq PRN Reason Stop Dose Admin Acetaminophen 650 mg 09/09/24 13:35 Acetaminophen 325 Mg Tablet PO 10/09/24 13:34 Q6H PRN Fever >100.4 Acetaminophen 650 mg 09/09/24 13:35 Acetaminophen 325 Mg Tablet PO 10/09/24 13:34 Q6H PRN PAIN SCALE 1-3 (mild Amiodarone HCl 200 mg 09/10/24 13:30 09/10/24 21:01 Amiodarone Hcl 200 Mg Tablet PO 10/10/24 13:29 200 mg BID GOLDIE Administration Apixaban 2.5 mg 09/10/24 13:30 09/10/24 21:00 Apixaban 2.5 Mg Tablet PO 10/10/24 13:29 2.5 mg BID GOLDIE Administration Atorvastatin Calcium 40 mg 09/10/24 21:00 09/10/24 21:00 Atorvastatin Calcium 20 Mg Tablet PO 10/10/24 20:59 40 mg HS GOLDIE Administration Bumetanide 2 mg 09/09/24 13:45 09/10/24 20:59 Bumetanide Inj 0.25 Mg/Ml Vial 4 Ml IVP 10/09/24 13:44 2 mg BID GOLDIE Administration Buspirone HCl 5 mg 09/10/24 13:45 09/10/24 21:00 Buspirone Hcl 5 Mg Tablet PO 10/10/24 13:44 5 mg BID GOLDIE Administration Folic Acid 1 mg 09/10/24 13:45 09/10/24 14:25 Folic Acid 1 Mg Tablet PO 10/10/24 13:44 1 mg DAILY GOLDIE Administration Metoprolol Succinate 50 mg 09/10/24 13:45 09/10/24 14:23 Metoprolol Succinate Xl 25 Mg Tabcr PO 10/10/24 13:44 50 mg QDAY GOLDIE Administration Mirtazapine 15 mg 09/10/24 21:00 09/10/24 21:00 Mirtazapine 15 Mg Tablet PO 10/10/24 20:59 15 mg HS GOLDIE Administration Ondansetron HCl 4 mg 09/09/24 13:35 Ondansetron Inj 2 Mg/Ml Inj 2 Ml IVP 10/09/24 13:34 Q6H PRN NAUSEA OR VOMITING Protocol Oseltamivir Phosphate 30 mg 09/09/24 15:15 09/10/24 09:32 Oseltamivir 30 Mg Capsule PO 09/16/24 15:14 30 mg QDAY GOLDIE Administration Pantoprazole Sodium 40 mg 09/09/24 20:45 09/10/24 09:32 Pantoprazole 40 Mg Tablet PO 10/09/24 20:44 40 mg DAILY GOLDIE Administration Sennosides 1 tab 09/09/24 13:35 Senna Tablet PO 10/09/24 13:34 QDAY PRN constipation Protocol Spironolactone 25 mg 09/10/24 13:45 09/10/24 14:24 Spironolactone 25 Mg Tablet PO 10/10/24 13:44 25 mg DAILY GOLDIE Administration Plan 87-year-old female with a past medical history of Takotsubo cardiomyopathy with an EF Estimated EF 55-60% in 07/2023, afib on apixiban, (followed by Dr. Bar), NSTEMI, recent history of fall without head strike 3 weeks ago, essential HTN, HLD,, mild dementia, depression, GERD, PUD s/p gastric esophageal surgery, former smoker with more than 25 pack years of smoking history 15 years ago, occasional alcohol use, and constipation, who presented to Dr. Bar clinic today and was noted to have 4+ edema BLE, most concerning for CHF exacerbation started on 2 mg Bumex IV. Preliminary infectious workup revealed leukocytosis, influenza A/B+, viral pneumonia suspected, continue on Tamiflu, and home medications, held home metoprolol given bradycardia this morning, started Entresto per cardiology recommendations. Continue to diurese. #Acute CHF exacerbation #Hx of Takotsubo cardiomyopathy #HFpEF (EF 55-60% in 07/2023) Per patient she has been having increased work of breathing over the past few days with exertion, patient notes that her legs are less edematous when she wears compression socks however she was not wearing them morning take she endorses taking her medications as prescribed. Patient does not report symptoms of cough, but does endorse some aching in her lower extremity PureWick catheter in place given aggressive diuresis and concern for fall. Patient with bilateral lower extremities with some skin wrinkling on physical exam. Legs remain very edematous continue to diurese with Bumex per cardiology recommendations, and assess volume status daily Dx * Bilateral lower extremity ultrasound to evaluate lower extremity edema and pain: No DVT * Consider IVC ultrasound to assess volume status given unable to assess JVD on physical exam * BNP elevated at 296Tx * Restarted home sacubitril/valsartan half tab twice daily given concern for renal function during diuresis per cardiology recommendations * Physical exam today shows bilateral lower extremity edema 3+ right, 2+ left, to the knees Tx * Strict ins and outs, with fluid restriction 1500 mL: Continue to reinforce with nursing staff: Net -1450 mL * Daily weights: Continue to reinforce with nursing staff: 55.9kg 6am * IV Bumex 2 mg twice daily per cardiology recommendations #Influenza A/B+ #Left lower lobe viral pneumonia #Leukocytosis-resolved SIRS criteria: Mild leukocytosis, not tachycardic not hypotensive SOFA score 2 for creatinine 1.4 Bacterial versus viral pneumonia. Viral pneumonia more likely given procalcitonin levels are within normal limits and patient tested positive for influenza WBC now within normal limits Dx -Lactic acid within normal limits -UA positive for leukocyte esterase and 3 WBC however nitrites negative; low level of suspicion for UTI at this time given lack of LUTS and urine negative nitrites, antibiotics not indicated at this time -Pending urine culture - Blood cultures no growth to date at 48 hours Tx - Tamiflu 75 mg daily for 5-day course (09/09 -09/14) #Electrolyte abnormalities -Daily CMP with mg and Phos -Replete as needed #BO secondary to sepsis with end organ damage?resolved Creatinine was initially elevated from baseline, consider pre versus intra versus postrenal etiologies, BUN/creatinine ratio of 14. Initially concerned for prerenal etiology given patient is likely third spacing as evidenced by bilateral lower extremity edema 4+ on exam. Creatinine within normal limits today, continue to monitor creatinine worsen given current plan for IV diuresis, continue to monitor - Daily CMP Chronic #HTN - Held metoprolol 50 mg daily, in setting of bradycardia this morning #History of pulmonary hypertension #hx NSTEMI Patient followed by Dr. Bar #Fall Patient with history of fall 3 weeks ago with fractured right rib seen at [facility], no head strike of note the patient is on apixaban - Consult PT, gerardo cartwright (physical therapy recommends home health with PT/OT, home safety assessment to decrease future risk of fall #HLD - Home atorvastatin 40 mg p.o. at bedtime #GERD #hx PUD - pansoprazole 40 mg qd #Afib on apixiban - Home apixiban 2.5 mg twice daily - Home amiodarone 200 mg twice daily #Depression - Home mirtazapine 15 mg p.o. at bedtime - Home buspirone 5 mg twice daily #Dementia Continue delirium precautions avoid nighttime waking for lab draws, continue to monitor for agitation. Patient's family did not come to visit of note in the afternoon patient was slightly confused and potentially waxing and waning Dispo: To home, patient has in-home appliances mechanic named Collette Lopes, who helps with IADLs. Patient is independent of ADLs with walker, physical therapy recommends home with home health for PT/OT and safety assessment Diet: Regular diet Bowel Reg: Senna 1 tab p.o. daily as needed VTE ppx: Pauda score 11, pharmacologic VTE PPx indicated, on apixaban at home follow-up on dosing GI ppx: pansoprazole 40 mg qd Code status: DNR Case discussed with my senior resident Dr. Maldonado Case discussed with my attending Dr. Lamar Howard MD PGY-1 Attending Provider Attestation/Addendum I attest that I was physically present for the evaluation, physical examination, lab and imaging review of the patient with the residents. I discussed the case with the residents and agree with the findings and plans of care as documented above. At bedside today, patient appears comfortable, denies any new complaints. Saturating well on room air. Continues to have bilateral pedal edema, but appears to start wrinkling. Metoprolol was held this morning, patient's heart rate around 50s. Started on Entresto half tab twice daily, tolerating well, continues to be on aggressive diuresis, having negative fluid balance. Cardiology following closely, appreciate recommendations. Deirdre Newton MD
[2024-09-11] MEDS: PANTOPRAZOLE 40 MG TABLET PO (08:33)
[2024-09-11] MEDS: AMIODARONE HCL 200 MG TABLET PO ×2 (08:33→21:36)
[2024-09-11] MEDS: SPIRONOLACTONE 25 MG TABLET PO (08:33)
[2024-09-11] MEDS: FOLIC ACID 1 MG TABLET PO (08:33)
[2024-09-11] MEDS: BUMETANIDE INJ 0.25 MG/ML VIAL 4 ML 2 MG IVP ×2 (08:34→21:37)
[2024-09-11] MEDS: APIXABAN 2.5 MG TABLET PO ×2 (08:34→21:37)
[2024-09-11] MEDS: OSELTAMIVIR 30 MG CAPSULE PO (08:34)
--- NOTE | 2024-09-11 15:29 | PC.SS ---
Rounding: Pending cardiology reccs poss DC 09/12 home
--- NOTE | 2024-09-11 19:26 | PD.RESPRO ---
Documentation for date of: 09/11/24 Subjective Subjective Interval history: Patient was seen and examined at the bedside this morning. She reported mild improvement in her bilateral lower limb edema. She was reinforced to strictly continue with less than 1500 cc of fluid intake Vitals were fairly stable, telemetry revealed atrial fibrillation, heart rate ranging from 50-100. CBC, CMP fairly at baseline, except for albumin of 2.3, which was stable or you are able. Physical exam was significant for mild improvement in bilateral lower limb edema, with 2-3+ edema on right leg and 1-2+ edema at left leg. - Recommended to continue with Bumex 2 mg twice daily along with albumin 25 g twice daily 30 minutes before Bumex dose. - Recommended to get further workup on hypoalbuminemia, hepatic vs renal loss vs nutritional deficiency - Started on Protein powder and Ensure TID in between meals. - Okay with resuming GDMT as tolerated. Exam Vital Signs Temp Pulse Resp BP Pulse Ox O2 Del Method O2 Flow Rate 98.1 F 53 L 16 137/75 H 98 Room Air 2 09/11/24 16:00 09/11/24 16:09/11/24 16:09/11/24 16:09/11/24 16:00 09/11/24 16:00 09/10/24 11:41 Narrative Exam General: No acute distress, Alert and Oriented x 3 HEENT: Moist mucous membranes, oropharynx clear Neck: Supple, No masses, No JVD CVS: S1S2 Regular rate and rhythm, No murmurs, rubs or gallops Lungs: Clear to auscultation with no accessory use, no wheeze no rhonchi Abd: Soft, NT/ND, +BS, no organomegaly Ext: 3+ edema on right lower extremity, left lower extremity with 2+ edema, difficult to palpate peripheral pulses Skin: No rash Psych: Appropriate mood and affect Objective Labs 09/12/24 04:30 09/12/24 04:30 Labs: Laboratory Results - last 24 hr 09/11/24 04:54 WBC 6.2 RBC 2.93 L Hgb 9.4 L Hct 28.1 L MCV 96 MCH 32.1 MCHC 33.5 RDW Std Deviation 56.2 H Plt Count 412 D Neut % (Auto) 68 Lymph % (Auto) 17 [place] % (Auto) 10 Eos % (Auto) 3 Baso % (Auto) 1 Neut # (Auto) 4.2 Lymph # (Auto) 1.0 [place] # (Auto) 0.6 Eos # (Auto) 0.2 Baso # (Auto) 0.1 Immature Gran # (Auto) 0.07 H Absolute Nucleated RBC 0.00 Immature Gran % 1 H Nucleated RBC % 0 Sodium 143 Potassium 4.2 Chloride 104 Carbon Dioxide 27.1 Anion Gap 12 BUN 17 Creatinine 1.2 Estim Creat Clear Calc 28.6 L eGFR 44 L BUN/Creatinine Ratio 14 Glucose 82 Calculated Osmolality 285 Calcium 7.6 L Corrected Calcium 9.0 Phosphorus 3.5 Magnesium 1.7 Total Bilirubin 0.2 L AST 23 ALT 16 Alkaline Phosphatase 87 Total Protein 4.3 L Albumin 2.3 L Globulin 2.0 L Albumin/Globulin Ratio 1.2 Quality Measures Quality Measures VTE prophylaxis Advance care planning discussed with:: patient Assessment & Plan Assessment Current Active Medications: Generic Name Dose Route Start Last Admin Trade Name Freq PRN Reason Stop Dose Admin Acetaminophen 650 mg 09/09/24 13:35 Acetaminophen 325 Mg Tablet PO 10/09/24 13:34 Q6H PRN Fever >100.4 Acetaminophen 650 mg 09/09/24 13:35 Acetaminophen 325 Mg Tablet PO 10/09/24 13:34 Q6H PRN PAIN SCALE 1-3 (mild Amiodarone HCl 200 mg 09/10/24 13:30 09/11/24 08:33 Amiodarone Hcl 200 Mg Tablet PO 10/10/24 13:29 200 mg BID GOLDIE Administration Apixaban 2.5 mg 09/10/24 13:30 09/11/24 08:34 Apixaban 2.5 Mg Tablet PO 10/10/24 13:29 2.5 mg BID GOLDIE Administration Atorvastatin Calcium 40 mg 09/10/24 21:00 09/10/24 21:00 Atorvastatin Calcium 20 Mg Tablet PO 10/10/24 20:59 40 mg HS GOLDIE Administration Bumetanide 2 mg 09/09/24 13:45 09/11/24 08:34 Bumetanide Inj 0.25 Mg/Ml Vial 4 Ml IVP 10/09/24 13:44 2 mg BID GOLDIE Administration Buspirone HCl 5 mg 09/10/24 13:45 09/11/24 08:33 Buspirone Hcl 5 Mg Tablet PO 10/10/24 13:44 5 mg BID GOLDIE Administration Folic Acid 1 mg 09/10/24 13:45 09/11/24 08:33 Folic Acid 1 Mg Tablet PO 10/10/24 13:44 1 mg DAILY GOLDIE Administration Albumin Human 25 gm in 100 mls @ 100 mls/hr 09/11/24 20:30 Albuminar-25 Ivpb IV 09/14/24 20:29 Q12H GOLDIE Metoprolol Succinate 50 mg 09/10/24 13:45 09/11/24 08:00 Metoprolol Succinate Xl 25 Mg Tabcr PO 10/10/24 13:44 Not Given QDAY GOLDIE Mirtazapine 15 mg 09/10/24 21:00 09/10/24 21:00 Mirtazapine 15 Mg Tablet PO 10/10/24 20:59 15 mg HS GOLDIE Administration Ondansetron HCl 4 mg 09/09/24 13:35 Ondansetron Inj 2 Mg/Ml Inj 2 Ml IVP 10/09/24 13:34 Q6H PRN NAUSEA OR VOMITING Protocol Oseltamivir Phosphate 30 mg 09/09/24 15:15 09/11/24 08:34 Oseltamivir 30 Mg Capsule PO 09/16/24 15:14 30 mg QDAY GOLDIE Administration Pantoprazole Sodium 40 mg 09/09/24 20:45 09/11/24 08:33 Pantoprazole 40 Mg Tablet PO 10/09/24 20:44 40 mg DAILY GOLDIE Administration Sacubitril/Valsartan 0.5 tab 09/11/24 11:15 09/11/24 12:26 Sacubitril 24 Mg/Valsartan 26 Mg Tablet PO 10/11/24 11:14 0.5 tab BID GOLDIE Administration Sennosides 1 tab 09/09/24 13:35 Senna Tablet PO 10/09/24 13:34 QDAY PRN constipation Protocol Spironolactone 25 mg 09/10/24 13:45 09/11/24 08:33 Spironolactone 25 Mg Tablet PO 10/10/24 13:44 25 mg DAILY GOLDIE Administration Plan The patient is an 88-year-old female, with past medical history significant for Takotsubo cardiomyopathy with LVEF 55 to 60 % in July 2023, previous normal LHC, PAH with RVSP of 50 mmHg, primary hypertension, paroxysmal atrial fibrillation, hyperlipidemia, mild dementia, depression, GERD, peptic ulcer disease s/p gastric esophageal surgery, ex-smoker with more than 25 packs year of smoking history 15 years ago, and constipation presented to ED with chief complaint of bilateral lower limb edema with 9/10 pain. Cardiology consultation was done for further management of HFpEF exacerbation with severe bilateral edema resistant to outpatient diuretics. #HFpEF exacerbation (EF 55-60% in 07/2023) #Resistant BL LL edema #History of Takotsubo cardiomyopathy #Moderate MR #Mild PAH #Possible cardiorenal syndrome The patient initially presented to cardiology clinic with concern regarding severe bilateral lower limb edema, that has been resistant to increased dose of oral Bumex 2 mg twice daily, associated with bilateral leg pain. TTE on 09/09/2024 revealed: Normal LV size and function. Estimated EF 55-60%. Diastolic function Normal RV size and function. Estimated RVSP around 35 mm hg. Severe LA dilataion. Moderate to severe MR. Mild RA Moderate TR. Mild PI. Moderate to severe aortic valve sclerosis without stenosis. Left Pleural Effusion. No Pericardial Effusion. - Recommended to continue with Bumex 2 mg twice daily along with albumin 25 g twice daily 30 minutes before Bumex dose. - Strict ins and outs - Daily fluid intake of 1500 cc, Incorporated in diet - Low-sodium diet of 2 g daily - Continue with metoprolol succinate 50 Mg daily, spironolactone 25 Mg daily and consider adding Entresto after BO is resolved #Hypoalbuminemia Etiology currently unknown - Albumin 25 g twice daily 30 minutes before Bumex dose. - Recommended to get further workup on hypoalbuminemia, hepatic vs renal loss vs nutritional deficiency - Started on Protein powder and Ensure TID in between meals. #Atrial fibrillation #Hypertension #Electrolyte abnormalities - Maintain magnesium and potassium greater than 2 and 4 respectively at all time - Replete other electrolytes as needed - Eliquis 2.5 Mg twice daily - Amiodarone 200 Mg twice daily - Metoprolol succinate 50 Mg daily, and continue on Entresto - Telemetry monitoring #Hyperlipidemia -Continue with home atorvastatin 40 Mg twice daily #Recent ground-level fall #Depression #Mild dementia -Management deferred to primary hospitalist team Thank you for cardiology consultation. We really appreciate the opportunity to participate in this patient care. Cardiology will continue to follow-up on this patient. The patient's management plan was discussed with my attending physician Dr. MD Carloz Bar MD, PGY3 Attending Provider Attestation/Addendum I have personally seen and examined the patient separately on the above date of service and discussed the plan of care with the resident. I reviewed the resident Dr. Carloz Hodges consultation progress note and agree with the resident findings and plan in the note above and have also edited the documentation to reflect my findings and plan. Napoleon Bar M.D. Interventional Cardiology
[2024-09-11] MEDS: ALBUMIN HUMAN 25% IVPB 25 GM/100 ML BTL IV (20:19)
[2024-09-11] MEDS: ATORVASTATIN CALCIUM 20 MG TABLET 40 MG PO (21:37)
[2024-09-11] MEDS: MIRTAZAPINE 15 MG TABLET PO (21:38)
[2024-09-12] VITALS (13 sets, daily range): BP systolic 112–131; BP diastolic 47–77; PULSE 57–94; RESP 16–23; TEMP 36.1–36.5; O2SAT 91–99; BMI 22.0
[2024-09-12 06:38] LABS: Basophils # (Auto) 0.0 Thou/mm3 (0.0-0.2); Basophils % (Auto) 1 % (0-2.5); Eosinophils # (Auto) 0.1 Thou/mm3 (0.0-0.5); Eosinophils % (Auto) 3 % (0-10); Hematocrit 27.1 % (36.0-46.0); Hemoglobin 8.9 g/dL (12.0-16.0); Immature Granulocytes Auto 0.02 Thou/mm3 (0.00-0.00); Lymphocytes # (Auto) 0.9 Thou/mm3 (1.0-4.8); Lymphocytes % (Auto) 19 % (10-50); Mean Corpuscular HGB Conc 32.8 g/dl (31.0-37.0); Mean Corpuscular Hemoglobin 33.1 pg (25.0-35.0); Mean Corpuscular Volume 101 fL (80-100); Monocytes # (Auto) 0.5 Thou/mm3 (0.0-0.8); Monocytes % (Auto) 11 % (0-12); Neutrophils # (Auto) 3.0 Thou/mm3 (1.8-7.7); Neutrophils % (Auto) 66 % (37-80); Nucleated Red Blood Cell # 0.00 Thou/mm3 (0.00-0.00); Nucleated Red Blood Cell % 0 /100 WBC (0); Platelet Count 398 Thou/mm3 (140-440); RDW Standard Deviation 57.4 fL (36.4-46.3); Red Blood Count 2.69 Miln/mm3 (4.00-5.20); White Blood Count 4.6 Thou/mm3 (3.6-11.0)
[2024-09-12 07:01] LABS: Alanine Aminotransferase 13 U/L (10-49); Albumin, Serum 2.7 gm/dL (3.4-4.8); Albumin/Globulin Ratio 1.4 (1.2-2.2); Alkaline Phosphatase 82 U/L (46-116); Anion Gap 10 (7-16); Aspartate Amino Transferase 16 U/L (0-34); BUN/Creatinine Ratio 13 Ratio (12-20); Bilirubin,Total 0.4 mg/dL (0.3-1.2); Blood Urea Nitrogen 17 mg/dL (9-23); Calcium 8.0 mg/dL (8.3-10.6); Calcium (Corrected) 9.0 mg/dL (8.5-10.1); Carbon Dioxide 28.7 mMol/L (20.0-31.0); Chloride 104 mMol/L (98-107); Creatinine (Component) 1.3 mg/dL (0.6-1.3); Estimated Creatinine Clearance 25.8 mL/min (>60); Globulin 2.0 gm/dL (2.3-3.5); Glucose 66 mg/dL (74-106); Magnesium 1.9 mg/dL (1.6-2.6); Osmolality,Calculated 284 (275-295); Phosphorous 3.7 mg/dL (2.4-5.1); Potassium 3.7 mMol/L (3.4-5.1); Sodium 143 mMol/L (136-145); Total Protein 4.7 gm/dL (5.7-8.2); eGFR 40 See Note
--- NOTE | 2024-09-12 07:43 | ESPR_ITS ---
Documentation for date of: 09/12/24 Subjective Subjective Interval history: No acute events overnight pt continues on GDMT as tolerated Exam Vital Signs Temp Pulse Resp BP Pulse Ox O2 Del Method O2 Flow Rate 97.2 F 63 20 125/75 98 Room Air 2 09/12/24 04:00 09/12/24 04:00 09/12/24 04:00 09/12/24 04:00 09/12/24 04:00 09/12/24 04:00 09/10/24 11:41 24-hour vital signs reviewed Afebrile Heart rate within normal limits BP within normal limits satting well on room air Net -1230 Patient had 1 bowel movement today Narrative Exam GENERAL: no acute distress, AAO x3, sitting laying in bed HEENT: Head AT/ NC. NECK: unable to assess JVD given loose skin around neck CARDIOVASCULAR: RRR. Normal S1/S2, No m/r/g. Right greater than left lower extremity edema, 3+ pitting of RLE to the ankle and 2+ pitting to the knees bilaterally, edema is in the dependent parts of her legs RESPIRATORY: CTAB. No wheezing, rhonchi, crackles. GASTROINTESTINAL: Abdomen soft, non tender no palpable masses. Bowel sounds present, no suprapubic tenderness to deep palpation MUSCULOSKELETAL:? No cyanosis or edema, no visible joint swelling. NEUROLOGICAL: CN II-XII grossly intact. No focal deficits. Moving all 4 extremities, PSYCHIATRIC: Awake and alert, not agitated, normal mood and affect. SKIN: No obvious rashes, no jaundice, more skin wrinkling noted on lower extremitie, several large ecchymoses on patient arm bilaterally, Objective Labs 09/13/24 05:15 09/13/24 05:15 Labs: Laboratory Results - last 24 hr 09/12/24 04:30 WBC 4.6 RBC 2.69 L Hgb 8.9 L Hct 27.1 L MCV 101 H MCH 33.1 MCHC 32.8 RDW Std Deviation 57.4 H Plt Count 398 Neut % (Auto) 66 Lymph % (Auto) 19 [place] % (Auto) 11 Eos % (Auto) 3 Baso % (Auto) 1 Neut # (Auto) 3.0 Lymph # (Auto) 0.9 L [place] # (Auto) 0.5 Eos # (Auto) 0.1 Baso # (Auto) 0.0 Immature Gran # (Auto) 0.02 H Absolute Nucleated RBC 0.00 Immature Gran % 0 Nucleated RBC % 0 Sodium 143 Potassium 3.7 D Chloride 104 Carbon Dioxide 28.7 Anion Gap 10 BUN 17 Creatinine 1.3 Estim Creat Clear Calc 25.8 L eGFR 40 L BUN/Creatinine Ratio 13 Glucose 66 L Calculated Osmolality 284 Calcium 8.0 L Corrected Calcium 9.0 Phosphorus 3.7 Magnesium 1.9 Total Bilirubin 0.4 AST 16 ALT 13 Alkaline Phosphatase 82 Total Protein 4.7 L Albumin 2.7 L Globulin 2.0 L Albumin/Globulin Ratio 1.4 Quality Measures Quality Measures VTE prophylaxis Advance care planning discussed with:: patient and child Assessment & Plan Assessment Current Active Medications: Generic Name Dose Route Start Last Admin Trade Name Freq PRN Reason Stop Dose Admin Acetaminophen 650 mg 09/09/24 13:35 Acetaminophen 325 Mg Tablet PO 10/09/24 13:34 Q6H PRN Fever >100.4 Acetaminophen 650 mg 09/09/24 13:35 Acetaminophen 325 Mg Tablet PO 10/09/24 13:34 Q6H PRN PAIN SCALE 1-3 (mild Amiodarone HCl 200 mg 09/10/24 13:30 09/11/24 21:36 Amiodarone Hcl 200 Mg Tablet PO 10/10/24 13:29 200 mg BID GOLDIE Administration Apixaban 2.5 mg 09/10/24 13:30 09/11/24 21:37 Apixaban 2.5 Mg Tablet PO 10/10/24 13:29 2.5 mg BID GOLDIE Administration Atorvastatin Calcium 40 mg 09/10/24 21:00 09/11/24 21:37 Atorvastatin Calcium 20 Mg Tablet PO 10/10/24 20:59 40 mg HS GOLDIE Administration Bumetanide 2 mg 09/09/24 13:45 09/11/24 21:37 Bumetanide Inj 0.25 Mg/Ml Vial 4 Ml IVP 10/09/24 13:44 2 mg BID GOLDIE Administration Buspirone HCl 5 mg 09/10/24 13:45 09/11/24 21:38 Buspirone Hcl 5 Mg Tablet PO 10/10/24 13:44 5 mg BID GOLDIE Administration Folic Acid 1 mg 09/10/24 13:45 09/11/24 08:33 Folic Acid 1 Mg Tablet PO 10/10/24 13:44 1 mg DAILY GOLDIE Administration Albumin Human 25 gm in 100 mls @ 100 mls/hr 09/11/24 20:30 09/11/24 20:19 Albuminar-25 Ivpb IV 09/14/24 20:29 100 mls/hr Q12H GOLDIE Administration Metoprolol Succinate 50 mg 09/10/24 13:45 09/11/24 08:00 Metoprolol Succinate Xl 25 Mg Tabcr PO 10/10/24 13:44 Not Given QDAY GOLDIE Mirtazapine 15 mg 09/10/24 21:00 09/11/24 21:38 Mirtazapine 15 Mg Tablet PO 10/10/24 20:59 15 mg HS GOLDIE Administration Ondansetron HCl 4 mg 09/09/24 13:35 Ondansetron Inj 2 Mg/Ml Inj 2 Ml IVP 10/09/24 13:34 Q6H PRN NAUSEA OR VOMITING Protocol Oseltamivir Phosphate 30 mg 09/09/24 15:15 09/11/24 08:34 Oseltamivir 30 Mg Capsule PO 09/16/24 15:14 30 mg QDAY GOLDIE Administration Pantoprazole Sodium 40 mg 09/09/24 20:45 09/11/24 08:33 Pantoprazole 40 Mg Tablet PO 10/09/24 20:44 40 mg DAILY GOLDIE Administration Sacubitril/Valsartan 0.5 tab 09/11/24 11:15 09/11/24 21:38 Sacubitril 24 Mg/Valsartan 26 Mg Tablet PO 10/11/24 11:14 0.5 tab BID GOLDIE Administration Sennosides 1 tab 09/09/24 13:35 09/12/24 05:59 Senna Tablet PO 10/09/24 13:34 1 tab QDAY PRN Administration constipation Protocol Spironolactone 25 mg 09/10/24 13:45 09/11/24 08:33 Spironolactone 25 Mg Tablet PO 10/10/24 13:44 25 mg DAILY GOLDIE Administration Plan 87-year-old female with a past medical history of Takotsubo cardiomyopathy with an EF Estimated EF 55-60% in 07/2023, afib on apixiban, (followed by Dr. Bar), NSTEMI, recent history of fall without head strike 3 weeks ago, essential HTN, HLD,, mild dementia, depression, GERD, PUD s/p gastric esophageal surgery, former smoker with more than 25 pack years of smoking history 15 years ago, occasional alcohol use, and constipation, admitted for CHF exacerbation undergoing ongoing diuresis with mild improvement in lower extremity edema, cardiology on board recommend GDMT as tolerated, continue Tamiflu for viral pneumonia. who presented to Dr. Bar clinic today and was noted to have 4+ edema BLE, most concerning for CHF exacerbation started on 2 mg Bumex IV. Preliminary infectious workup revealed leukocytosis, influenza A/B+, viral pneumonia suspected, continue on Tamiflu, and home medications, continued on Entresto per cardiology recommendations. Continue to diurese. #Acute CHF exacerbation #Hx of Takotsubo cardiomyopathy #HFpEF (EF 55-60% in 07/2023) Per patient she has been having increased work of breathing over the past few days with exertion, patient notes that her legs are less edematous when she wears compression socks however she was not wearing them morning take she endorses taking her medications as prescribed. Patient does not report symptoms of cough, but does endorse some aching in her lower extremity PureWick catheter in place given aggressive diuresis and concern for fall. Patient with bilateral lower extremities with some skin wrinkling on physical exam. Legs remain very edematous continue to diurese with Bumex per cardiology recommendations, and assess volume status daily Dx * Bilateral lower extremity ultrasound to evaluate lower extremity edema and pain: No DVT * Consider IVC ultrasound to assess volume status given unable to assess JVD on physical exam * BNP elevated at 296Tx * Restarted home sacubitril/valsartan half tab twice daily given concern for renal function during diuresis per cardiology recommendations, CTM given creatinine increased to 1.3 today from 1.2 * Physical exam today shows bilateral lower extremity edema 3+ right, 2+ left, to the knees Tx * cont metop 50 mg qd , sacubitril/valsartan half tab qd , spirinolactone 25 mg po qd * Strict ins and outs, with fluid restriction 1500 mL: Continue to reinforce with nursing staff: Net - 1230 mL * Daily weights: Continue to reinforce with nursing staff * Cardiology consulted, IV Bumex 2mg IV BID, Albumin 25mg BID #Influenza A/B+ #Left lower lobe viral pneumonia #Leukocytosis-resolved SIRS criteria: Mild leukocytosis, not tachycardic not hypotensive SOFA score 2 for creatinine 1.4 Bacterial versus viral pneumonia. Viral pneumonia more likely given procalcitonin levels are within normal limits and patient tested positive for influenza WBC now within normal limits Dx -Lactic acid within normal limits -UA positive for leukocyte esterase and 3 WBC however nitrites negative; low level of suspicion for UTI at this time given lack of LUTS and urine negative nitrites, antibiotics not indicated at this time -Pending urine culture - Blood cultures no growth to date at 48 hours Tx - Tamiflu 75 mg daily for 5-day course (09/09 -09/14) #Protein Calorie malnutrition albumin low, pt has had poor po intake while in patient. Her meal % completions have been low. Pt noted to have some difficulty chewing - dietition consulted, appreciate recs - ensure plus TID between meals - ProStat 30ml once daily with lunch - per CARDS will discharge with protein powder. #Electrolyte abnormalities -Daily CMP with mg and Phos -Replete as needed #BO secondary diuresis?CTM Creatinine was initially elevated from baseline, consider pre versus intra versus postrenal etiologies, BUN/creatinine ratio of 14. Initially concerned for prerenal etiology given patient is likely third spacing as evidenced by bilateral lower extremity edema 4+ on exam. Creatinine within normal limits today, continue to monitor creatinine worsen given current plan for IV diuresis, continue to monitor - Daily CMP Chronic #HTN - CONT metoprolol 50 mg daily #History of pulmonary hypertension #hx NSTEMI Patient followed by Dr. Bar #Fall Patient with history of fall 3 weeks ago with fractured right rib seen at [facility], no head strike of note the patient is on apixaban - Consult PT, appreciate recs (physical therapy recommends home health with PT/OT, home safety assessment to decrease future risk of fall #HLD - Home atorvastatin 40 mg p.o. at bedtime #GERD #hx PUD - pansoprazole 40 mg qd #Afib on apixiban - Home apixiban 2.5 mg twice daily - Home amiodarone 200 mg twice daily #Depression - Home mirtazapine 15 mg p.o. at bedtime - Home buspirone 5 mg twice daily #Dementia Continue delirium precautions avoid nighttime waking for lab draws, continue to monitor for agitation. Patient's family did not come to visit of note in the afternoon patient was slightly confused and potentially waxing and waning Dispo: To home, patient has in-group home counselor named Collette Moses, who helps with IADLs. Patient is independent of ADLs with walker, physical therapy recommends home with home health for PT/OT and safety assessment Diet: Regular diet Bowel Reg: Senna 1 tab p.o. daily as needed, bm following suppository 1x VTE ppx: Pauda score 11, pharmacologic VTE PPx indicated, on apixaban at home follow-up on dosing GI ppx: pansoprazole 40 mg qd Code status: DNR Case discussed with my senior resident Dr. Maldonado Case discussed with my attending Dr. Lamar Howard MD PGY-1 Attending Provider Attestation/Addendum I attest that I was physically present for the evaluation, physical examination, lab and imaging review of the patient with the residents. I discussed the case with the residents and agree with the findings and plans of care as documented above. At bedside today, patient states she is feeling well. Complained of mild back pain. Pedal edema has been improving. Lungs are clear to auscultate. Continues to be on aggressive diuresis and GDMT as recommended by cardiology. Continues to be on Tamiflu for influenza. Registered dietitian following, patient on high protein diet. We will continue with aggressive diuresis. Deirdre Newton MD
[2024-09-12] MEDS: BUMETANIDE INJ 0.25 MG/ML VIAL 4 ML 2 MG IVP ×2 (08:07→21:53)
[2024-09-12] MEDS: ALBUMIN HUMAN 25% IVPB 25 GM/100 ML BTL IV ×2 (08:07→20:12)
[2024-09-12] MEDS: OSELTAMIVIR 30 MG CAPSULE PO (08:12)
[2024-09-12] MEDS: SPIRONOLACTONE 25 MG TABLET PO (08:12)
[2024-09-12] MEDS: AMIODARONE HCL 200 MG TABLET PO ×2 (08:12→21:38)
[2024-09-12] MEDS: FOLIC ACID 1 MG TABLET PO (08:12)
[2024-09-12] MEDS: APIXABAN 2.5 MG TABLET PO ×2 (08:12→21:38)
[2024-09-12] MEDS: PANTOPRAZOLE 40 MG TABLET PO (08:13)
--- NOTE | 2024-09-12 10:55 | ESPR_ITS ---
Documentation for date of: 09/12/24 Subjective Subjective Interval history: Patient was seen and examined at the bedside this morning. She reported mild improvement in her bilateral lower limb edema. She was reinforced to strictly continue with less than 1500 cc of fluid intake Vitals were fairly stable, telemetry revealed atrial fibrillation, heart rate ranging from 50-100. CBC, CMP fairly at baseline, except for albumin of 2.3, which was stable or you are able. Physical exam was significant for mild improvement in bilateral lower limb edema, with 2-3+ edema on right leg and 1-2+ edema at left leg. - Recommended to continue with Bumex 2 mg twice daily along with albumin 25 g twice daily 30 minutes before Bumex dose. - Diuresing well - Recommended to get further workup on hypoalbuminemia, hepatic vs renal loss vs nutritional deficiency - Continue with Ensure TID in between meals, protein powder as outpt. - Okay with resuming GDMT as tolerated. Exam Vital Signs Temp Pulse Resp BP Pulse Ox O2 Del Method O2 Flow Rate 97.7 F 57 L 16 120/74 91 L Room Air 2 09/12/24 08:00 09/12/24 08:12 09/12/24 08:00 09/12/24 08:12 09/12/24 08:00 09/12/24 08:00 09/10/24 11:41 Narrative Exam General: No acute distress, Alert and Oriented x 3 HEENT: Moist mucous membranes, oropharynx clear Neck: Supple, No masses, No JVD CVS: S1S2 Regular rate and rhythm, No murmurs, rubs or gallops Lungs: Clear to auscultation with no accessory use, no wheeze no rhonchi Abd: Soft, NT/ND, +BS, no organomegaly Ext: 2+ edema on right lower extremity, left lower extremity with 2+ edema, difficult to palpate peripheral pulses Skin: No rash Psych: Appropriate mood and affect Objective Labs 09/12/24 04:30 09/12/24 04:30 Labs: Laboratory Results - last 24 hr 09/12/24 04:30 WBC 4.6 RBC 2.69 L Hgb 8.9 L Hct 27.1 L MCV 101 H MCH 33.1 MCHC 32.8 RDW Std Deviation 57.4 H Plt Count 398 Neut % (Auto) 66 Lymph % (Auto) 19 [place] % (Auto) 11 Eos % (Auto) 3 Baso % (Auto) 1 Neut # (Auto) 3.0 Lymph # (Auto) 0.9 L [place] # (Auto) 0.5 Eos # (Auto) 0.1 Baso # (Auto) 0.0 Immature Gran # (Auto) 0.02 H Absolute Nucleated RBC 0.00 Immature Gran % 0 Nucleated RBC % 0 Sodium 143 Potassium 3.7 D Chloride 104 Carbon Dioxide 28.7 Anion Gap 10 BUN 17 Creatinine 1.3 Estim Creat Clear Calc 25.8 L eGFR 40 L BUN/Creatinine Ratio 13 Glucose 66 L Calculated Osmolality 284 Calcium 8.0 L Corrected Calcium 9.0 Phosphorus 3.7 Magnesium 1.9 Total Bilirubin 0.4 AST 16 ALT 13 Alkaline Phosphatase 82 Total Protein 4.7 L Albumin 2.7 L Globulin 2.0 L Albumin/Globulin Ratio 1.4 Quality Measures Quality Measures VTE prophylaxis Advance care planning discussed with:: patient Assessment & Plan Assessment Current Active Medications: Generic Name Dose Route Start Last Admin Trade Name Freq PRN Reason Stop Dose Admin Acetaminophen 650 mg 09/09/24 13:35 Acetaminophen 325 Mg Tablet PO 10/09/24 13:34 Q6H PRN Fever >100.4 Acetaminophen 650 mg 09/09/24 13:35 Acetaminophen 325 Mg Tablet PO 10/09/24 13:34 Q6H PRN PAIN SCALE 1-3 (mild Amiodarone HCl 200 mg 09/10/24 13:30 09/12/24 08:12 Amiodarone Hcl 200 Mg Tablet PO 10/10/24 13:29 200 mg BID GOLDIE Administration Apixaban 2.5 mg 09/10/24 13:30 09/12/24 08:12 Apixaban 2.5 Mg Tablet PO 10/10/24 13:29 2.5 mg BID GOLDIE Administration Atorvastatin Calcium 40 mg 09/10/24 21:00 09/11/24 21:37 Atorvastatin Calcium 20 Mg Tablet PO 10/10/24 20:59 40 mg HS GOLDIE Administration Bumetanide 2 mg 09/09/24 13:45 09/12/24 08:07 Bumetanide Inj 0.25 Mg/Ml Vial 4 Ml IVP 10/09/24 13:44 2 mg BID GOLDIE Administration Buspirone HCl 5 mg 09/10/24 13:45 09/12/24 08:12 Buspirone Hcl 5 Mg Tablet PO 10/10/24 13:44 5 mg BID GOLDIE Administration Folic Acid 1 mg 09/10/24 13:45 09/12/24 08:12 Folic Acid 1 Mg Tablet PO 10/10/24 13:44 1 mg DAILY GOLDIE Administration Albumin Human 25 gm in 100 mls @ 100 mls/hr 09/11/24 20:30 09/12/24 08:07 Albuminar-25 Ivpb IV 09/14/24 20:29 100 mls/hr Q12H GOLDIE Administration Magnesium Sulfate 2 gm in 50 mls @ 25 mls/hr 09/12/24 10:00 Magnesium Sulfate Ivpb IV 09/12/24 11:59 X1 ONE Metoprolol Succinate 50 mg 09/10/24 13:45 09/11/24 08:00 Metoprolol Succinate Xl 25 Mg Tabcr PO 10/10/24 13:44 Not Given QDAY GOLDIE Mirtazapine 15 mg 09/10/24 21:00 09/11/24 21:38 Mirtazapine 15 Mg Tablet PO 10/10/24 20:59 15 mg HS GOLDIE Administration Ondansetron HCl 4 mg 09/09/24 13:35 Ondansetron Inj 2 Mg/Ml Inj 2 Ml IVP 10/09/24 13:34 Q6H PRN NAUSEA OR VOMITING Protocol Oseltamivir Phosphate 30 mg 09/09/24 15:15 09/12/24 08:12 Oseltamivir 30 Mg Capsule PO 09/16/24 15:14 30 mg QDAY GOLDIE Administration Pantoprazole Sodium 40 mg 09/09/24 20:45 09/12/24 08:13 Pantoprazole 40 Mg Tablet PO 10/09/24 20:44 40 mg DAILY GOLIDE Administration Sacubitril/Valsartan 0.5 tab 09/11/24 11:15 09/12/24 08:11 Sacubitril 24 Mg/Valsartan 26 Mg Tablet PO 10/11/24 11:14 0.5 tab BID GOLDIE Administration Sennosides 1 tab 09/09/24 13:35 09/12/24 05:59 Senna Tablet PO 10/09/24 13:34 1 tab QDAY PRN Administration constipation Protocol Spironolactone 25 mg 09/10/24 13:45 09/12/24 08:12 Spironolactone 25 Mg Tablet PO 10/10/24 13:44 25 mg DAILY GOLDIE Administration Plan The patient is an 88-year-old female, with past medical history significant for Takotsubo cardiomyopathy with LVEF 55 to 60 % in July 2023, previous normal LHC, PAH with RVSP of 50 mmHg, primary hypertension, paroxysmal atrial fibrillation, hyperlipidemia, mild dementia, depression, GERD, peptic ulcer disease s/p gastric esophageal surgery, ex-smoker with more than 25 packs year of smoking history 15 years ago, and constipation presented to ED with chief complaint of bilateral lower limb edema with 9/10 pain. Cardiology consultation was done for further management of HFpEF exacerbation with severe bilateral edema resistant to outpatient diuretics. #HFpEF exacerbation (EF 55-60% in 07/2023) #Resistant BL LL edema #History of Takotsubo cardiomyopathy #Moderate MR #Mild PAH #Cardiorenal syndrome VS congestive BO The patient initially presented to cardiology clinic with concern regarding severe bilateral lower limb edema, that has been resistant to increased dose of oral Bumex 2 mg twice daily, associated with bilateral leg pain. TTE on 09/09/2024 revealed: Normal LV size and function. Estimated EF 55-60%. Diastolic function Normal RV size and function. Estimated RVSP around 35 mm hg. Severe LA dilataion. Moderate to severe MR. Mild RA Moderate TR. Mild PI. Moderate to severe aortic valve sclerosis without stenosis. Left Pleural Effusion. No Pericardial Effusion. - Recommended to continue with Bumex 2 mg twice daily along with albumin 25 g twice daily 30 minutes before Bumex dose. - Strict ins and outs - Daily fluid intake of 1500 cc, Incorporated in diet - Low-sodium diet of 2 g daily - Continue with metoprolol succinate 50 Mg daily, spironolactone 25 Mg daily and consider adding Entresto after BO is resolved #Hypoalbuminemia Etiology currently unknown - Albumin 25 g twice daily 30 minutes before Bumex dose. - Recommended to get further workup on hypoalbuminemia, hepatic vs renal loss vs nutritional deficiency - Started on Protein powder and Ensure TID in between meals. #Atrial fibrillation #Hypertension #Electrolyte abnormalities - Maintain magnesium and potassium greater than 2 and 4 respectively at all time - Replete other electrolytes as needed - Eliquis 2.5 Mg twice daily - Amiodarone 200 Mg twice daily - Metoprolol succinate 50 Mg daily, and continue on Entresto - Telemetry monitoring #Hyperlipidemia -Continue with home atorvastatin 40 Mg twice daily #Recent ground-level fall #Depression #Mild dementia -Management deferred to primary hospitalist team Thank you for cardiology consultation. We really appreciate the opportunity to participate in this patient care. Cardiology will continue to follow-up on this patient. The patient's management plan was discussed with my attending physician MD Carloz Marrero MD, PGY3 Attending Provider Attestation/Addendum I have personally seen and examined the patient separately on the above date of service and discussed the plan of care with the resident. I reviewed the resident Dr. Carloz Hodges consultation progress note and agree with the resident findings and plan in the note above and have also edited the documentation to reflect my findings and plan. Napoleon Bar M.D. Interventional Cardiology
[2024-09-12] MEDS: Magnesium Sulfate 2 GM Ivpb 2 GM/50 ML BAG IV (11:27)
[2024-09-12] MEDS: POTASSIUM CHLORIDE 10% 20 MEQ/15 ML UDC 40 MEQ PO (11:27)
--- NOTE | 2024-09-12 12:33 | PC.NURSE ---
Patient sitting on chair eating her lunch. Daughter at bedside taking care of patient. Making sure she does not fall or try to get out of chair. Will continue to monitor patient.
[2024-09-12] MEDS: ATORVASTATIN CALCIUM 20 MG TABLET 40 MG PO (21:38)
[2024-09-12] MEDS: MIRTAZAPINE 15 MG TABLET PO (21:39)
[2024-09-13] VITALS (9 sets, daily range): BP systolic 98–131; BP diastolic 50–94; PULSE 67–93; RESP 16–99; TEMP 36.1–36.4; O2SAT 94–98; BMI 20.5
[2024-09-13 06:46] LABS: Basophils # (Auto) 0.0 Thou/mm3 (0.0-0.2); Basophils % (Auto) 1 % (0-2.5); Eosinophils # (Auto) 0.1 Thou/mm3 (0.0-0.5); Eosinophils % (Auto) 3 % (0-10); Hematocrit 24.0 % (36.0-46.0); Hemoglobin 7.8 g/dL (12.0-16.0); Immature Granulocytes Auto 0.01 Thou/mm3 (0.00-0.00); Lymphocytes # (Auto) 0.8 Thou/mm3 (1.0-4.8); Lymphocytes % (Auto) 19 % (10-50); Mean Corpuscular HGB Conc 32.5 g/dl (31.0-37.0); Mean Corpuscular Hemoglobin 32.5 pg (25.0-35.0); Mean Corpuscular Volume 100 fL (80-100); Monocytes # (Auto) 0.4 Thou/mm3 (0.0-0.8); Monocytes % (Auto) 10 % (0-12); Neutrophils # (Auto) 2.8 Thou/mm3 (1.8-7.7); Neutrophils % (Auto) 67 % (37-80); Nucleated Red Blood Cell # 0.00 Thou/mm3 (0.00-0.00); Nucleated Red Blood Cell % 0 /100 WBC (0); Platelet Count 355 Thou/mm3 (140-440); RDW Standard Deviation 59.1 fL (36.4-46.3); Red Blood Count 2.40 Miln/mm3 (4.00-5.20); White Blood Count 4.2 Thou/mm3 (3.6-11.0)
[2024-09-13 07:36] LABS: Alanine Aminotransferase 10 U/L (10-49); Albumin, Serum 2.9 gm/dL (3.4-4.8); Albumin/Globulin Ratio 1.8 (1.2-2.2); Alkaline Phosphatase 63 U/L (46-116); Anion Gap 8 (7-16); Aspartate Amino Transferase 13 U/L (0-34); BUN/Creatinine Ratio 22 Ratio (12-20); Bilirubin,Total 0.4 mg/dL (0.3-1.2); Blood Urea Nitrogen 24 mg/dL (9-23); Calcium 8.2 mg/dL (8.3-10.6); Calcium (Corrected) 9.1 mg/dL (8.5-10.1); Carbon Dioxide 31.9 mMol/L (20.0-31.0); Chloride 105 mMol/L (98-107); Creatinine (Component) 1.1 mg/dL (0.6-1.3); Estimated Creatinine Clearance 30.5 mL/min (>60); Globulin 1.6 gm/dL (2.3-3.5); Glucose 73 mg/dL (74-106); Magnesium 1.8 mg/dL (1.6-2.6); Osmolality,Calculated 291 (275-295); Phosphorous 3.3 mg/dL (2.4-5.1); Potassium 4.1 mMol/L (3.4-5.1); Sodium 145 mMol/L (136-145); Total Protein 4.5 gm/dL (5.7-8.2); eGFR 48 See Note
[2024-09-13] MEDS: ALBUMIN HUMAN 25% IVPB 25 GM/100 ML BTL IV (08:30)
[2024-09-13] MEDS: BUMETANIDE INJ 0.25 MG/ML VIAL 4 ML 2 MG IVP (08:30)
[2024-09-13] MEDS: METOPROLOL SUCCINATE XL 25 MG TABCR 50 MG PO (08:31)
[2024-09-13] MEDS: APIXABAN 2.5 MG TABLET PO (08:31)
[2024-09-13] MEDS: AMIODARONE HCL 200 MG TABLET PO (08:31)
[2024-09-13] MEDS: SPIRONOLACTONE 25 MG TABLET PO (08:32)
[2024-09-13] MEDS: FOLIC ACID 1 MG TABLET PO (08:33)
[2024-09-13] MEDS: OSELTAMIVIR 30 MG CAPSULE PO (08:33)
[2024-09-13] MEDS: PANTOPRAZOLE 40 MG TABLET PO (09:25)
[2024-09-13] MEDS: VIT B12/Vit C/FA (Nephrovite) TABLET 1 TAB PO (12:06)
[2024-09-13 13:19] LABS: Ferritin 18 ng/mL (7.3-270.7); Iron 29 mcg/dL (50-170); Percent Iron Saturation 22 % (20-55); Total Iron Binding Capacity 127 mcg/dL (250-425); Unsaturated Iron Binding 98 (225-295)
--- NOTE | 2024-09-13 14:42 | PC.SS ---
Rounding note: Cardiology recommendation is pending, may discharge home today if medically clear.
--- NOTE | 2024-09-13 14:43 | PD.RESDS ---
Planned Discharge Date 09/13/24 DS: Providers Provider Date of admission: 09/09/24 13:34 Primary care physician: Clayton Rodriguez PA-C Admitting Provider: Mary Fajardo DO Attending Provider on Admission: Deirdre Newton MD Consults: 09/09/24 13:39 Consult to Cardiology Routine Comment: Consulting Provider: Napoleon Bar 09/09/24 20:46 Referral Physical Therapy Routine Comment: Physician Instructions: 09/10/24 01:54 Referral Infection Control Routine Comment: A&B Flu + Reason for Infection Control Referral: Patient In Isolation Attending Provider on DC: Deirdre Newton MD Discharging Provider: Deirdre Newton MD DS: Diagnosis Problem List Completed Was Problem List Reviewed/Reconciled?: Yes Hospital Course Hospital Course Hospital course: DC summary: This patient is a 87-year-old female with past medical history of Takotsubo cardiomyopathy with an EF 55 to 60%, A-fib on [facility] executive vice president and chief financial officer, , NSTEMI, recent history of fall without head strike 3 weeks ago, essential hypertension, hyperlipidemia, dementia, depression, GERD, peptic ulcer disease s/p gastric esophageal surgery, former smoker with more than 01-aikt-pyqc history, occasional alcohol use, constipation was admitted for CHF exacerbation. She presented with lower extremity swelling and shortness of breath. She was found to have flu as well. She was sent from executive vice president and chief financial officer clinic with 4+ pitting edema on both lower extremities. Patient was adequately diuresed with IV Bumex with fluid restriction and strict CHETAN's. She was also given 5-day course of Tamiflu for influenza. Patient showed good diuretic response with improvement in swelling, breathing difficulty and kidney functions improved markedly. Echocardiogram showed EF 55-60% with diastolic dysfunction. RVSP around 35 mmHg. Severe LA dilation. Moderate to severe MR. Moderate TR. Moderate to severe aortic valve sclerosis without stenosis. Left pleural effusion. No pericardial effusion. GDMT including Entresto, metoprolol succinate, spironolactone were added slowly and adjusted based on blood pressure tolerance. Patient was given albumin before every dose of diuretic/Bumex. Patient also was found to have protein calorie malnutrition and was given Ensure plus 3 times daily with meals. Electrolytes were repleted as needed. Home medications were resumed as necessary. Patient had delirium overnight and was given delirium precautions. This morning she was alert and oriented x 3. Patient was seen by executive vice president and chief financial officer this morning and was stable to be discharged. Vital signs labs were stable this morning. Patient's daughter was on the bedside and was explained that she need to continue her medications as directed and followed by her executive vice president and chief financial officer within a week with new set of labs. Patient is discharged to home with home health. #Problem list #Acute CHF exacerbation #Hx of Takotsubo cardiomyopathy #HFpEF (EF 55-60% in 07/2023) #Influenza A/B+ #Left lower lobe viral pneumonia #Leukocytosis-resolved #Protein Calorie malnutrition #Electrolyte abnormalities #BO secondary diuresis?CTM #Hypertension #History of pulmonary hypertension #History of NSTEMI #History of fall #History of hyperlipidemia #GERD #History of PUD #A-fib on Eliquis #Depression #Dementia DC instructions Continue taking Bumex 2 mg once a day in the morning and Bumex 1 mg once at night daily and continue taking Aldactone 25 mg once daily Continue taking Entresto half a tablet twice daily and hold if blood pressure drops below 80/60 mmHg Take ferrous sulfate 325 mg every other day Take Nephro-David 1 tablet once a day daily Take amiodarone 200 mg twice daily, metoprolol 25 mg XL once a day and Eliquis 2.5 mg daily dose twice daily Drink Ensure protein powder 3 times a day with meals Continue taking all home medications prescribed Do CBC, CMP and magnesium after week and take your test to your executive vice president and chief financial officer after a week Follow-up with your PCP as outpatient within a week Follow-up with your executive vice president and chief financial officer as outpatient within a week In case of emergency, call 911 or come back to the ED Patient was seen and discussed with attending physician, Dr.Bishwakarma Dr. Lee MD, PGY 3 Time Spent with Patient Time attestation: Total time spent providing and/or coordinating discharge services: 35 min Time spent: Greater than 30 minutes Home Health Home Health Referral Orders: 09/11/24 14:22 Home Health Referral Routine Reason For Exam: CHF exacerbation Home-Bound The patient must either because of illness or injury, need the aid of supportive devices such as crutches, canes, wheelchairs, and walkers; the use of special transportation; or the assistance of another person in order to leave their place of residence; OR have a condition such that leaving his or her home is medically contraindicated. In addition, the patient also meets the following criteria: patient is normally unable to leave the home and leaving home requires considerable taxing effort. Addendum to Home Health Certification Practitioner's Certification: I certify that the patient has been under my care in the hospital and the care of attending physician (see below). We had a uhtv-xm-yjjk encounter on (see date below). My clinical findings indicate that the patient is home bound per the above criteria and the Home Health Services noted in these orders are medically necessary. The primary reason for the ntah-nx-ttaa encounter is related to the fact that the patient requires home health services. Date Certifying Owwo-af-Ncfj Physician Encounter: 09/09/24 Physician's Name who will Assume Oversight for Services: Clayton Rodriguez ([facility]) Physician's Phone No.who will Assume Oversight for Service: [employer] LAYOUT DESIGNER - Community Resources: No PT to Evaluate: Yes: PT/OT PT to evaluate and provide a treatmnet plan to increase patient's mobility and strength. Wound Care: No IV Therapy: No RN Safety Evaluation: Yes RN to evaluate and create a plan of care that will produce positive outcomes. Palliative Treatment: No Palliative treatment and evaluate the need for hospice. Home Health Aide - Personal Care: No Home Health Aide to assist with any ADL's. Exam Vital Signs Temp Pulse Resp BP Pulse Ox O2 Del Method O2 Flow Rate 97.1 F 88 16 98/50 L 94 L Room Air 2 09/13/24 12:09/13/24 12:09/13/24 12:09/13/24 12:09/13/24 12:09/13/24 12:09/10/24 11:41 Narrative Exam GENERAL APPEARANCE: Elderly frail female in no acute distress. Saturating well on room air. HEENT: NC, AT. MMM. EOMI, clear conjunctiva, oropharynx clear. NECK: Supple without lymphadenopathy. No stiffness or restricted ROM. HEART: Regular rate and regular rhythm, normal S1/S2, no m/r/g LUNGS: CTAB, moving air well. No crackles or wheezes are heard. ABDOMEN: Soft, nontender, nondistended with good bowel sounds heard. BACK: No CVAT, no obvious deformity. EXTREMITIES: Mild trace edema on her foot. No swelling in both lower extremities otherwise. NEUROLOGICAL: Grossly nonfocal. Alert and oriented, moving all 4 extremities. CN not formally tested but appear grossly intact. Skin: Warm and dry without any rash. Psych: Appropriate mood and affect Discharge Plan Plan Patient Disposition: Home w/HOME HEALTH Patient condition on transfer: Stable Care Plan Goals: Continue taking Bumex 2 mg once a day in the morning and Bumex 1 mg once at night daily and continue taking Aldactone 25 mg once daily Continue taking Entresto half a tablet twice daily and hold if blood pressure drops below 80/60 mmHg Take ferrous sulfate 325 mg every other day Take Nephro-David 1 tablet once a day daily Take amiodarone 200 mg twice daily, metoprolol 25 mg XL once a day and Eliquis 2.5 mg daily dose twice daily Drink Ensure protein powder 3 times a day with meals Continue taking all home medications prescribed Do CBC, CMP and magnesium after week and take your test to your executive vice president and chief financial officer after a week Follow-up with your PCP as outpatient within a week Follow-up with your executive vice president and chief financial officer as outpatient within a week In case of emergency, call 911 or come back to the ED Prescriptions/Referrals Prescriptions/Med Rec: New ferrous sulfate 325 mg (65 mg iron) tablet 325 mg PO Q OTHER DAY Qty: 60 0RF Nephro-David 0.8 mg Tablet 1 tab PO QDAY Qty: 60 0RF Entresto 24-26 mg Tablet 0.5 tab PO BID Qty: 60 0RF Rx Instructions: Hold if SBP below 80 mmHg and DBP below 60 mmHg bumetanide 2 mg tablet 2 mg PO QDAY Qty: 60 0RF bumetanide 1 mg tablet 1 mg PO HS Qty: 60 0RF protein [Ensure High Protein] Powder 1 ea PO TIDWM Qty: 454 0RF Continued buspirone 5 mg tablet 5 mg PO BID Patient Comments: take 1 tablet by mouth twice a day Eliquis 2.5 mg Tablet 2.5 mg PO BID 30 Days Qty: 60 2RF atorvastatin 20 mg Tablet 40 mg PO HS 30 Days Qty: 60 2RF amiodarone 200 mg Tablet 200 mg PO BID 30 Days Qty: 60 2RF mirtazapine 15 mg Tablet 15 mg PO HS 30 Days Qty: 30 2RF metoprolol succinate 25 mg Tablet Extended Release 24 Hr 50 mg PO QDAY 30 Days Qty: 60 2RF spironolactone 25 mg Tablet 25 mg PO DAILY Qty: 60 0RF Rx Instructions: Hold if SBP below 80 mmHg and DBP below 60 mmHg folic acid 1 mg Tablet 1 mg PO DAILY pantoprazole 40 mg Tablet,Delayed Release (Dr/Ec) 40 mg PO BID magnesium 100 mg Capsule 400 mg PO DAILY acetaminophen [Tylenol] 325 mg Tablet 325 mg PO PRN MDD 3 grams PRN (Reason: Pain (Scale Score 1-3)) potassium chloride 8 mEq Tablet Extended Release 8 meq PO DAILY Discontinued Entresto 24-26 mg Tablet 1 tab PO BID ferrous sulfate 325 mg (65 mg iron) Capsule, Extended Release 325 mg PO BID furosemide [Lasix] 40 mg Tablet 40 mg PO QDAY buspirone 5 mg Tablet 5 mg PO BID Referrals: Napoleon Bar MD [Physician] - Michael ([facility]),Clayton Burnett PA-C [Primary Care Provider] - Outpatient Orders (i.e. Home Health, Labs, Imaging): CBC (Routine) Timeframe: 1 Week Location: Determined by Patient Ordered By: Aaron Howard Comprehensive Metabolic Panel (Routine) Timeframe: 1 Week Location: Determined by Patient Ordered By: Aaron Howard Magnesium (Routine) Timeframe: 1 Week Location: Determined by Patient Ordered By: Aaron Howard Patient/Caregiver Discharge Instructions Education Materials: Coping with Heart Failure, Heart Failure Print Language: Czech Stand Alone Forms: Marleny Award Info., Patient Portal Info Letter Discharge Order Discharge Orders: Discharge (Routine); Ordered 09/13/24 Ordered By: Aaron Howard Quality Discharge Quality Measures VTE prophylaxis (Eliquis 2.5 mg twice daily) Attestestation Attestation I attest that I was physically present for the evaluation, physical examination, lab and imaging review of the patient with the residents. I discussed the case with the residents and agree with the findings and plans of care as documented above. Deirdre Newton MD
--- NOTE | 2024-09-13 22:15 | PD.RESPRO ---
Documentation for date of: 09/13/24 Subjective Subjective Interval history: Patient was seen and examined at the bedside this morning. She reported mild improvement in her bilateral lower limb edema. She was reinforced to strictly continue with less than 1500 cc of fluid intake Vitals were fairly stable, telemetry revealed atrial fibrillation, heart rate ranging from 50-100. CBC, CMP fairly at baseline, except for albumin of 2.9 Physical exam was significant for mild improvement in bilateral lower limb edema, with no edema on right leg and left leg. - Recommended to discharge with oral Bumex 2 mg daily in the morning and 1mg daily in the evening - Continue with Ensure TID in between meals, protein powder as outpt. - Okay with resuming GDMT as tolerated. - follow upa s outpt in 1 week with BMP and Mg Exam Vital Signs Temp Pulse Resp BP Pulse Ox O2 Del Method O2 Flow Rate 97.6 F 72 18 103/52 L 94 L Room Air 2 09/13/24 16:00 09/13/24 16:00 09/13/24 16:00 09/13/24 16:00 09/13/24 16:00 09/13/24 16:00 09/10/24 11:41 Narrative Exam General: No acute distress, Alert and Oriented x 3 HEENT: Moist mucous membranes, oropharynx clear Neck: Supple, No masses, No JVD CVS: S1S2 Regular rate and rhythm, No murmurs, rubs or gallops Lungs: Clear to auscultation with no accessory use, no wheeze no rhonchi Abd: Soft, NT/ND, +BS, no organomegaly Ext: No edema, peripheral pulses palpable Skin: No rash Psych: Appropriate mood and affect Objective Labs 09/13/24 05:15 09/13/24 05:15 Labs: Laboratory Results - last 24 hr 09/13/24 05:15 WBC 4.2 RBC 2.40 L Hgb 7.8 L Hct 24.0 L MCV 100 MCH 32.5 MCHC 32.5 RDW Std Deviation 59.1 H Plt Count 355 D Neut % (Auto) 67 Lymph % (Auto) 19 [place] % (Auto) 10 Eos % (Auto) 3 Baso % (Auto) 1 Neut # (Auto) 2.8 Lymph # (Auto) 0.8 L [place] # (Auto) 0.4 Eos # (Auto) 0.1 Baso # (Auto) 0.0 Immature Gran # (Auto) 0.01 H Absolute Nucleated RBC 0.00 Immature Gran % 0 Nucleated RBC % 0 Sodium 145 Potassium 4.1 Chloride 105 Carbon Dioxide 31.9 H Anion Gap 8 BUN 24 H Creatinine 1.1 Estim Creat Clear Calc 30.5 L eGFR 48 L BUN/Creatinine Ratio 22 H Glucose 73 L Calculated Osmolality 291 Calcium 8.2 L Corrected Calcium 9.1 Phosphorus 3.3 Magnesium 1.8 Iron 29 L TIBC 127 L Iron Saturation 22 Unsat Iron Binding 98 L Ferritin 18 Total Bilirubin 0.4 AST 13 ALT 10 Alkaline Phosphatase 63 D Total Protein 4.5 L Albumin 2.9 L Globulin 1.6 L Albumin/Globulin Ratio 1.8 Quality Measures Quality Measures VTE prophylaxis (Eliquis 2.5 mg twice daily) Advance care planning discussed with:: patient and child Assessment & Plan Assessment Current Active Medications: Generic Name Dose Route Start Last Admin Trade Name Freq PRN Reason Stop Dose Admin Acetaminophen 650 mg 09/09/24 13:35 Acetaminophen 325 Mg Tablet PO 10/09/24 13:34 Q6H PRN Fever >100.4 Acetaminophen 650 mg 09/09/24 13:35 Acetaminophen 325 Mg Tablet PO 10/09/24 13:34 Q6H PRN PAIN SCALE 1-3 (mild Amiodarone HCl 200 mg 09/10/24 13:30 09/12/24 08:12 Amiodarone Hcl 200 Mg Tablet PO 10/10/24 13:29 200 mg BID GOLDIE Administration Apixaban 2.5 mg 09/10/24 13:30 09/12/24 08:12 Apixaban 2.5 Mg Tablet PO 10/10/24 13:29 2.5 mg BID GOLDIE Administration Atorvastatin Calcium 40 mg 09/10/24 21:00 09/11/24 21:37 Atorvastatin Calcium 20 Mg Tablet PO 10/10/24 20:59 40 mg HS GOLDIE Administration Bumetanide 2 mg 09/09/24 13:45 09/12/24 08:07 Bumetanide Inj 0.25 Mg/Ml Vial 4 Ml IVP 10/09/24 13:44 2 mg BID GOLDIE Administration Buspirone HCl 5 mg 09/10/24 13:45 09/12/24 08:12 Buspirone Hcl 5 Mg Tablet PO 10/10/24 13:44 5 mg BID GOLDIE Administration Folic Acid 1 mg 09/10/24 13:45 09/12/24 08:12 Folic Acid 1 Mg Tablet PO 10/10/24 13:44 1 mg DAILY GOLDIE Administration Albumin Human 25 gm in 100 mls @ 100 mls/hr 09/11/24 20:30 09/12/24 08:07 Albuminar-25 Ivpb IV 09/14/24 20:29 100 mls/hr Q12H GOLDIE Administration Magnesium Sulfate 2 gm in 50 mls @ 25 mls/hr 09/12/24 10:00 Magnesium Sulfate Ivpb IV 09/12/24 11:59 X1 ONE Metoprolol Succinate 50 mg 09/10/24 13:45 09/11/24 08:00 Metoprolol Succinate Xl 25 Mg Tabcr PO 10/10/24 13:44 Not Given QDAY GOLDIE Mirtazapine 15 mg 09/10/24 21:00 09/11/24 21:38 Mirtazapine 15 Mg Tablet PO 10/10/24 20:59 15 mg HS GOLDIE Administration Ondansetron HCl 4 mg 09/09/24 13:35 Ondansetron Inj 2 Mg/Ml Inj 2 Ml IVP 10/09/24 13:34 Q6H PRN NAUSEA OR VOMITING Protocol Oseltamivir Phosphate 30 mg 09/09/24 15:15 09/12/24 08:12 Oseltamivir 30 Mg Capsule PO 09/16/24 15:14 30 mg QDAY GOLDIE Administration Pantoprazole Sodium 40 mg 09/09/24 20:45 09/12/24 08:13 Pantoprazole 40 Mg Tablet PO 10/09/24 20:44 40 mg DAILY GOLDIE Administration Sacubitril/Valsartan 0.5 tab 09/11/24 11:15 09/12/24 08:11 Sacubitril 24 Mg/Valsartan 26 Mg Tablet PO 10/11/24 11:14 0.5 tab BID GOLDIE Administration Sennosides 1 tab 09/09/24 13:35 09/12/24 05:59 Senna Tablet PO 10/09/24 13:34 1 tab QDAY PRN Administration constipation Protocol Spironolactone 25 mg 09/10/24 13:45 09/12/24 08:12 Spironolactone 25 Mg Tablet PO 10/10/24 13:44 25 mg DAILY GOLDIE Administration Plan The patient is an 88-year-old female, with past medical history significant for Takotsubo cardiomyopathy with LVEF 55 to 60 % in July 2023, previous normal LHC, PAH with RVSP of 50 mmHg, primary hypertension, paroxysmal atrial fibrillation, hyperlipidemia, mild dementia, depression, GERD, peptic ulcer disease s/p gastric esophageal surgery, ex-smoker with more than 25 packs year of smoking history 15 years ago, and constipation presented to ED with chief complaint of bilateral lower limb edema with 9/10 pain. Cardiology consultation was done for further management of HFpEF exacerbation with severe bilateral edema resistant to outpatient diuretics. #HFpEF exacerbation (EF 55-60% in 07/2023) #Resistant BL LL edema #History of Takotsubo cardiomyopathy #Moderate MR #Mild PAH #Cardiorenal syndrome VS congestive BO The patient initially presented to cardiology clinic with concern regarding severe bilateral lower limb edema, that has been resistant to increased dose of oral Bumex 2 mg twice daily, associated with bilateral leg pain. TTE on 09/09/2024 revealed: Normal LV size and function. Estimated EF 55-60%. Diastolic function Normal RV size and function. Estimated RVSP around 35 mm hg. Severe LA dilataion. Moderate to severe MR. Mild RA Moderate TR. Mild PI. Moderate to severe aortic valve sclerosis without stenosis. Left Pleural Effusion. No Pericardial Effusion. - Strict ins and outs - Daily fluid intake of 1500 cc, Incorporated in diet - Low-sodium diet of 2 g daily - Continue with metoprolol succinate 50 Mg daily, spironolactone 25 Mg daily and consider adding Entresto of tolerated - Recommended to discharge with oral Bumex 2 mg daily in the morning and 1mg daily in the evening - Continue with Ensure TID in between meals, protein powder as outpt. - Okay with resuming GDMT as tolerated. - follow upa s outpt in 1 week with BMP and Mg #Hypoalbuminemia Etiology currently unknown - Albumin 25 g twice daily 30 minutes before Bumex dose. - Recommended to get further workup on hypoalbuminemia, hepatic vs renal loss vs nutritional deficiency - Continue on Protein powder and Ensure TID in between meals. #Atrial fibrillation #Hypertension #Electrolyte abnormalities - Maintain magnesium and potassium greater than 2 and 4 respectively at all time - Replete other electrolytes as needed - Eliquis 2.5 Mg twice daily - Amiodarone 200 Mg twice daily - Metoprolol succinate 50 Mg daily, and continue on Entresto - Telemetry monitoring #Hyperlipidemia -Continue with home atorvastatin 40 Mg twice daily #Recent ground-level fall #Depression #Mild dementia -Management deferred to primary hospitalist team Thank you for cardiology consultation. We really appreciate the opportunity to participate in this patient care. Cardiology will continue to follow-up on this patient. The patient's management plan was discussed with my attending physician MD Carloz Marrero MD, PGY3 Attending Provider Attestation/Addendum I have personally seen and examined the patient separately on the above date of service and discussed the plan of care with the resident. I reviewed the resident Dr. Carloz Hodges consultation progress note and agree with the resident findings and plan in the note above and have also edited the documentation to reflect my findings and plan. Napoleon Bar M.D. Interventional Cardiology
--- NOTE | 2024-09-14 08:53 | PC.CC ---
Addendum entered by Ron Jackson RN 09/14/24 10:15: [facility] accepted services. SOC 09/14/24. Original Note: Clinicals sent to [facility], waiting for SOC.
== END 2024-09-13 16:18 | disposition home health service (06) | DRG 291 ==
LOC: SERX 13:11 → SERHOLD 13:55 → S2NX 23:04 → S3NX 09-10 17:28
PROVIDERS: Nurse Practitioner Family; Student in an Organized Health Care Education/Training Program; Admitting Provider Internal Medicine; Emergency Provider Emergency Medicine; PCP Physician Assistant; Visit Provider Student in an Organized Health Care Education/Training Program
DX: I11.0 Hypertensive heart disease with heart failure (principal); I50.43 Acute on chronic combined systolic (congestive) and diastolic (congestive) heart failure; J10.08 Influenza due to other identified influenza virus with other specified pneumonia; J12.9 Viral pneumonia, unspecified; F03.A3 Unspecified dementia, mild, with mood disturbance; N17.9 Acute kidney failure, unspecified; E46 Unspecified protein-calorie malnutrition; I48.21 Permanent atrial fibrillation; J44.0 Chronic obstructive pulmonary disease with (acute) lower respiratory infection; I25.2 Old myocardial infarction; K21.9 Gastro-esophageal reflux disease without esophagitis; I48.91 Unspecified atrial fibrillation; E78.5 Hyperlipidemia, unspecified; Z91.81 History of falling; F32.A Depression, unspecified; Z66 Do not resuscitate; E88.09 Other disorders of plasma-protein metabolism, not elsewhere classified; I27.20 Pulmonary hypertension, unspecified; I35.8 Other nonrheumatic aortic valve disorders; Z79.01 Long term (current) use of anticoagulants; Z79.899 Other long term (current) drug therapy; Z87.11 Personal history of peptic ulcer disease; Z87.891 Personal history of nicotine dependence; Z88.8 Allergy status to other drugs, medicaments and biological substances
CPT/HCPCS: 36415; 70450; 71045; 80053; 81001; 82728; 83540; 83550; 83605; 83735; 83880; 84100; 84145; 84443; 84484; 85025; 85379; 85610; 85730; 87040; 87077; 87081; 87086; 87186; 87400; 87811; 93225; 93306; 93970; 96374; 97162; J3475; J3490; P9047; A9270

== ENCOUNTER → 2024-09-17 | Outpatient (CLI) | payer MEDICARE, MEDICAID, SELFPAY ==
[2024-09-17 17:30] LABS: Basophils # (Auto) 0.0 Thou/mm3 (0.0-0.2); Basophils % (Auto) 1 % (0-2.5); Eosinophils # (Auto) 0.1 Thou/mm3 (0.0-0.5); Eosinophils % (Auto) 1 % (0-10); Hematocrit 24.2 % (36.0-46.0); Immature Granulocytes Auto 0.02 Thou/mm3 (0.00-0.00); Lymphocytes # (Auto) 0.7 Thou/mm3 (1.0-4.8); Lymphocytes % (Auto) 15 % (10-50); Mean Corpuscular HGB Conc 32.6 g/dl (31.0-37.0); Mean Corpuscular Hemoglobin 32.2 pg (25.0-35.0); Mean Corpuscular Volume 99 fL (80-100); Monocytes # (Auto) 0.6 Thou/mm3 (0.0-0.8); Monocytes % (Auto) 13 % (0-12); Neutrophils # (Auto) 3.4 Thou/mm3 (1.8-7.7); Neutrophils % (Auto) 71 % (37-80); Nucleated Red Blood Cell # 0.00 Thou/mm3 (0.00-0.00); Nucleated Red Blood Cell % 0 /100 WBC (0); Platelet Count 339 Thou/mm3 (140-440); RDW Standard Deviation 57.6 fL (36.4-46.3); Red Blood Count 2.45 Miln/mm3 (4.00-5.20); White Blood Count 4.8 Thou/mm3 (3.6-11.0)
[2024-09-17 17:48] LABS: Alanine Aminotransferase 19 U/L (10-49); Albumin, Serum 2.9 gm/dL (3.4-4.8); Albumin/Globulin Ratio 1.7 (1.2-2.2); Alkaline Phosphatase 67 U/L (46-116); Anion Gap 11 (7-16); Aspartate Amino Transferase 29 U/L (0-34); BUN/Creatinine Ratio 38 Ratio (12-20); Bilirubin,Total 0.4 mg/dL (0.3-1.2); Blood Urea Nitrogen 46 mg/dL (9-23); Calcium 8.1 mg/dL (8.3-10.6); Calcium (Corrected) 9.0 mg/dL (8.5-10.1); Carbon Dioxide 26.2 mMol/L (20.0-31.0); Chloride 104 mMol/L (98-107); Creatinine (Component) 1.2 mg/dL (0.6-1.3); Globulin 1.7 gm/dL (2.3-3.5); Glucose 145 mg/dL (74-106); Hemoglobin 7.9 g/dL (12.0-16.0); Magnesium 1.6 mg/dL (1.6-2.6); Osmolality,Calculated 296 (275-295); Potassium 4.2 mMol/L (3.4-5.1); Sodium 141 mMol/L (136-145); Total Protein 4.6 gm/dL (5.7-8.2); eGFR 44 See Note
== END | disposition home or self-care (01) ==
LOC: SLDO 16:46
PROVIDERS: PCP Physician Assistant; Referring Provider Physician Assistant; Visit Provider Physician Assistant
DX: E83.42 Hypomagnesemia (principal); I50.23 Acute on chronic systolic (congestive) heart failure
CPT/HCPCS: 36415; 80053; 83735; 85025

== ENCOUNTER → 2024-09-22 | Outpatient (CLI) | payer MEDICARE, MEDICAID, SELFPAY ==
[2024-09-22 12:21] LABS: Basophils # (Auto) 0.0 Thou/mm3 (0.0-0.2); Basophils % (Auto) 1 % (0-2.5); Eosinophils # (Auto) 0.1 Thou/mm3 (0.0-0.5); Eosinophils % (Auto) 1 % (0-10); Hematocrit 28.3 % (36.0-46.0); Hemoglobin 9.0 g/dL (12.0-16.0); Immature Granulocytes Auto 0.02 Thou/mm3 (0.00-0.00); Lymphocytes # (Auto) 1.1 Thou/mm3 (1.0-4.8); Lymphocytes % (Auto) 21 % (10-50); Mean Corpuscular HGB Conc 31.8 g/dl (31.0-37.0); Mean Corpuscular Hemoglobin 32.6 pg (25.0-35.0); Mean Corpuscular Volume 103 fL (80-100); Monocytes # (Auto) 0.5 Thou/mm3 (0.0-0.8); Monocytes % (Auto) 10 % (0-12); Neutrophils # (Auto) 3.8 Thou/mm3 (1.8-7.7); Neutrophils % (Auto) 68 % (37-80); Nucleated Red Blood Cell # 0.00 Thou/mm3 (0.00-0.00); Nucleated Red Blood Cell % 0 /100 WBC (0); Platelet Count 418 Thou/mm3 (140-440); RDW Standard Deviation 61.2 fL (36.4-46.3); Red Blood Count 2.76 Miln/mm3 (4.00-5.20); White Blood Count 5.5 Thou/mm3 (3.6-11.0)
[2024-09-22 13:11] LABS: Alanine Aminotransferase 21 U/L (10-49); Albumin, Serum 3.4 gm/dL (3.4-4.8); Albumin/Globulin Ratio 1.5 (1.2-2.2); Alkaline Phosphatase 86 U/L (46-116); Anion Gap 10 (7-16); Aspartate Amino Transferase 21 U/L (0-34); BUN/Creatinine Ratio 26 Ratio (12-20); Bilirubin,Total 0.5 mg/dL (0.3-1.2); Blood Urea Nitrogen 37 mg/dL (9-23); Calcium 8.5 mg/dL (8.3-10.6); Calcium (Corrected) 9.0 mg/dL (8.5-10.1); Carbon Dioxide 26.6 mMol/L (20.0-31.0); Cardiac Risk Estimate 1.9 RATIO (3.7-5.6); Chloride 102 mMol/L (98-107); Cholesterol 121 mg/dL (132-200); Creatinine (Component) 1.4 mg/dL (0.6-1.3); Free T4 (Free Thyroxine) 1.92 ng/dL (0.89-1.76); Globulin 2.2 gm/dL (2.3-3.5); Glucose 89 mg/dL (74-106); HDL Cholesterol 65 mg/dL (40-60); LDL Cholesterol,Calculated 39 mg/dL (0-130); Magnesium 1.7 mg/dL (1.6-2.6); Osmolality,Calculated 285 (275-295); Potassium 3.8 mMol/L (3.4-5.1); Sodium 139 mMol/L (136-145); Thyroid Stimulating Hormone 2.81 uIU/mL (0.55-4.78); Total Protein 5.6 gm/dL (5.7-8.2); Triglycerides 86 mg/dL (30-150); eGFR 36 See Note
[2024-09-23 09:38] LABS: Misc Send Out* See Sep Rpt
== END | disposition home or self-care (01) ==
LOC: COPL 11:34
PROVIDERS: PCP Physician Assistant; Referring Provider Internal Medicine Cardiovascular Disease; Visit Provider Internal Medicine Cardiovascular Disease
DX: I11.0 Hypertensive heart disease with heart failure (principal); I50.22 Chronic systolic (congestive) heart failure; E78.5 Hyperlipidemia, unspecified; I48.0 Paroxysmal atrial fibrillation
CPT/HCPCS: 36415; 80053; 80061; 83036; 83735; 84439; 84443; 85025

== ENCOUNTER 2024-10-13 10:28 | Emergency (ER) | payer MEDICARE, MEDICAID, SELFPAY ==
[2024-10-13 10:33] VITALS: BP 110/76; PULSE 68; PULSE 72; RESP 16; TEMP 36.4; O2SAT 99; BMI 21.9
--- NOTE | 2024-10-13 11:22 | XR_ITS ---
Examination: AP chest single view TECHNIQUE: AP portable sitting chest single view Date and time: October 13, 2024 1211 hours Comparison September 09, 2024 INDICATIONS: Acute chest pain today. FINDINGS: Mild prominence left ventricle Moderate hyperexpansion. No pneumonia or pulmonary edema. Prominent osteopenia IMPRESSION: No pneumonia or pulmonary edema
--- NOTE | 2024-10-13 11:22 | XR_ITS ---
Examination: CT brain head without contrast. 2-D sagittal coronal reconstructions Date and time of exam:October 13, 2024 1129 hours INDICATIONS: Patient fell today with injury to the head, head pain CTDI: vol (mGy):39.7 DLP: (mGycm):831 Technique: Multiple CT axial sections of the brain have been obtained, 5 mm slice thickness. Contrast has not been administered. 2-D sagittal, coronal reconstructions have been obtained Low dose protocols were performed. One or more of the following dose reduction techniques were used; automated exposure control, adjustment of the mA and/or KV according to patient size, use of iterative reconstruction technique. Findings: No significant ventricular enlargement. Intra-axial or extra-axial hemorrhage density is not seen. No mass effect or midline shift Basal cisterns are not remarkable. Fourth ventricle is midline. Cranial vault intact. Impression: Negative for acute hemorrhage, mass effect or midline shift
--- NOTE | 2024-10-13 11:23 | EKG_ITS ---
[facility] Test Date: 2024-10-13 Pat Name: MARTI LOPEZ Department: Room: - Gender: Female Assistant Program Manager: : 1935 Requested By: Cedric Milian Order Number: [id number] Reading MD: Cedric Milian Measurements Intervals [place] Rate: 78 P: VA: QRS: -47 QRSD: 119 T: 88 QT: 275 QTc: 315 Interpretive Statements ATRIAL FIBRILLATION LEFT AXIS DEVIATION [QRS AXIS < -30] POSSIBLE ANTERIOR MYOCARDIAL INFARCTION , PROBABLY OLD [30 ms Q WAVE IN V3/V4, OR R < 0.2 mV IN V4] Compared to ECG 09/09/2024 12:47:36 No significant changes /store/S0/[id number].pdf
--- NOTE | 2024-10-13 11:30 | PD.EDFALL ---
ED Fall Injury RME/HPI General Chief Complaint: Fall Stated Complaint: FALL Time Seen by Provider: 10/13/24 11:23 Source: patient Arrival date/time: 10/13/24 10:28 88-year-old female with a history of hyperlipidemia, CHF, A-fib on Eliquis presents to the emergency room with a chief complaint of a ground-level fall that occurred overnight. Per the caregiver she showed up this morning at the patient's house and the patient was found on the ground. The patient does not remember how she fell or when she fell. Mode of arrival: ambulatory Limitations: no limitations Related Data Home Medications ?Medication ?Instructions ?Recorded ?Confirmed buspirone 5 mg tablet 5 mg PO BID 09/17/22 09/10/24 acetaminophen 325 mg tablet 325 mg PO PRN PRN Pain (Scale 07/11/23 09/10/24 (Tylenol) Score 1-3) folic acid 1 mg tablet 1 mg PO DAILY 07/11/23 09/10/24 magnesium 100 mg capsule 400 mg PO DAILY 07/11/23 09/10/24 pantoprazole 40 mg tablet,delayed 40 mg PO BID 07/11/23 09/10/24 release potassium chloride 8 mEq 8 meq PO DAILY 07/11/23 09/10/24 tablet,extended release Previous Rx's ?Medication ?Instructions ?Recorded amiodarone 200 mg tablet 200 mg PO BID 30 days #60 tabs 09/24/22 apixaban 2.5 mg tablet (Eliquis) 2.5 mg PO BID 30 days #60 tabs 09/24/22 atorvastatin 20 mg tablet 40 mg (2 x 20 mg) PO HS 30 days 09/24/22 #60 tabs metoprolol succinate 25 mg 50 mg (2 x 25 mg) PO QDAY 30 days 09/24/22 tablet,extended release 24 hr #60 tabs mirtazapine 15 mg tablet 15 mg PO HS 30 days #30 tabs 09/24/22 bumetanide 1 mg tablet 1 mg PO HS #60 tabs 09/13/24 bumetanide 2 mg tablet 2 mg PO QDAY #60 tabs 09/13/24 ferrous sulfate 325 mg (65 mg 325 mg PO Q OTHER DAY #60 tabs 09/13/24 iron) tablet protein (Ensure High Protein oral 1 ea PO TIDWM #454 grams 09/13/24 powder) sacubitril 24 mg-valsartan 26 mg 0.5 tab PO BID #60 tabs 09/13/24 tablet (Entresto) spironolactone 25 mg tablet 25 mg PO DAILY #60 tabs 09/13/24 vitamin B complex-vitamin C-folic 1 tab PO QDAY #60 tabs 09/13/24 acid 0.8 mg tablet (Nephro-David) nitrofurantoin 100 mg PO Q12H 5 days #10 caps 10/13/24 monohydrate/macrocrystals 100 mg capsule (Macrobid) Allergies Allergy/AdvReac Type Severity Reaction Status Date / Time tramadol Allergy Intermediate UPSETS Verified 09/09/24 14:28 STOMACH,DOESN'T FEEL GOOD Review of Systems Review of Systems Systems Reviewed: All systems reviewed, normal except as documented Constitutional Constitutional: Reports system reviewed and no additional complaints, except as documented, Denies fatigue, Denies fever(s), Denies headache(s) and Reports weakness Eyes Eyes: Reports system reviewed and no additional complaints, except as documented, Denies blurry vision and Denies change in vision ENT Ears, Nose, Mouth, and Throat: Reports system reviewed and no additional complaints, except as documented, Denies otalgia, Denies headache(s), Denies nasal congestion, Denies throat swelling and Denies vertigo Cardiovascular Cardiovascular: Reports system reviewed and no additional complaints, except as documented, Denies chest pain, Denies dyspnea and Denies dyspnea on exertion Respiratory Respiratory: Reports system reviewed and no additional complaints, except as documented, Denies chest congestion, Denies cough, Denies dyspnea, Denies dyspnea on exertion and Denies wheezing Gastrointestinal Gastrointestinal: Reports system reviewed and no additional complaints, except as documented, Denies abdominal pain, Denies cramping, Denies nausea and Denies vomiting Genitourinary Genitourinary: Reports system reviewed and no additional complaints, except as documented Musculoskeletal Musculoskeletal: Reports system reviewed and no additional complaints, except as documented and Denies back pain Integumentary/Breasts Skin/Breast: Reports system reviewed and no additional complaints, except as documented and Denies wounds Neurologic Neurologic: Reports system reviewed and no additional complaints, except as documented, Denies confusion, Denies headache(s), Denies lack of coordination, Denies vertigo and Reports weakness Psychiatric Psychiatric: Reports system reviewed and no additional complaints, except as documented, Denies anxiety, Denies confusion, Denies depression, Denies paranoia, Denies suicidal ideation and Denies tactile hallucinations Endocrine Endocrine: Reports system reviewed and no additional complaints, except as documented and Denies fatigue Hematologic/Lymphatic Hematologic/Lymphatic: Reports system reviewed and no additional complaints, except as documented and Denies lymphadenopathy Allergic/Immunologic Allergic/Immunologic: Reports system reviewed and no additional complaints, except as documented, Denies throat swelling, Denies urticaria and Denies wheezing Past Medical History Past Medical History NEUROLOGIC: Positive Neurological Disorders and Dementia (mild); Negative Seizures CARDIAC: Positive Cardiac Disorders, Myocardial Infarction, Atrial Fibrillation, Hypercholesterolemia, Congestive Heart Failure, Edema and Hypertension RESPIRATORY: Positive Pneumonia; Negative Chronic Obstructive Pulmonary Disease (COPD) GASTROINTESTINAL: Positive Gastrointestinal Disorders, Gall Bladder Disease, Ulcer and Gastroesophageal Reflux Disease GENITOURINARY: Negative Genitourinary Disorders or Renal Disease REPRODUCTIVE: Positive Previous Pregnancies MUSCULOSKELETAL: Positive Musculoskeletal Disorders and Arthritis ENT: Positive Cataracts and Macular Degeneration ENDOCRINE: Negative Diabetes Mellitus Type 1 or Diabetes Mellitus Type 2 HEMATOLOGIC: Negative Blood Disorders PSYCHO/SOCIAL: Positive Depression OTHER HISTORY: Positive Falls and Blood Transfusions; Negative Blood Transfusion Reaction, Anesthesia Reactions or Cancer Family History FAMILY HISTORY: Positive Family Cancer Surgical History SURGICAL: Positive Cardiac Surgery and Angiogram; Negative Coronary Stent, Pacemaker, Endocrine Surgery, Abdominal Surgery or Joint Replacement Social History SMOKING STATUS: Former smoker SECOND HAND EXPOSURE: No ED Exam General Limitations: Present no limitations General appearance: Present alert and in no apparent distress Head Head exam: Present atraumatic, normocephalic and normal inspection Expanded Head Exam Head exam physical: Present abrasion; Absent laceration, contusion, hematoma, raccoon eyes, Booker's sign, tenderness of temporal artery, CSF rhinorrhea or CSF otorrhea Head image:  1. Patient has a small abrasion to the right forehead Eye Eye exam: Present normal appearance, PERRL and EOMI ENT ENT exam: Present normal exam, normal oropharynx and mucous membranes moist Neck Neck exam: Present normal inspection, full ROM and trachea midline Chest Chest inspection: Present normal inspection and symmetric chest wall rise Respiratory Respiratory exam: Present normal lung sounds bilaterally Cardiovascular Cardiovascular exam: Present regular rate, normal rhythm and normal heart sounds Abdominal Exam Abdominal exam: Present soft and normal bowel sounds; Absent tenderness Extremities Exam Extremities exam: Present normal inspection and full ROM Expanded Lower Extremity Exam Hip/Pelvis exam: Present normal inspection and full ROM Back Exam Back exam: Present normal inspection and full ROM Neurological Exam Neurological exam: Present alert, oriented X3 and CN II-XII intact Expanded Neurological Exam Patient oriented to: Present person, place and time Speech: Present fluid speech Cranial nerves: Normal: EOM function (II, III, IV, ), facial sensation (V) and facial palsy (VII) Motor strength - LUE: 5/5 Motor strength - RUE: 5/5 Motor strength - LLE: 5/5 Motor strength - RLE: 5/5 Coma scale eye opening: spontaneous Coma scale motor response: obeys commands Coma scale verbal response: oriented Coma scale total: 15 Psychiatric Psychiatric exam: Present normal affect and normal mood Skin Skin exam: Present warm, dry, intact and normal color Course Quality Measures none Orders Category Date Time Status EKG (ED ONLY) *Do not use* NOW Care 10/13/24 11:23 Completed In and Out Catheter X1 Care 10/13/24 13:18 Completed Insert IV STAT Care 10/13/24 14:[address] head/brain wo con Stat Exams 10/13/24 11:22 Completed EKG (ED Only) Stat Exams 10/13/24 11:23 Draft XR chest 1V portable Stat Exams 10/13/24 11:22 Completed B-Type Natriuretic Peptide Stat Lab 10/13/24 13:08 Completed CBC Stat Lab 10/13/24 13:08 Completed Comprehensive Metabolic Panel Stat Lab 10/13/24 13:08 Completed Creatine Kinase Stat Lab 10/13/24 13:08 Completed Magnesium Stat Lab 10/13/24 13:08 Completed Partial Thromboplastin Time Stat Lab 10/13/24 13:08 Completed Prothrombin Time with INR Stat Lab 10/13/24 13:08 Completed Troponin I Stat Lab 10/13/24 13:08 Completed Urinalysis Stat Lab 10/13/24 13:17 Completed cefTRIAXone [Rocephin] 1,000 mg Med 10/13/24 16:03 Discontinued Lidocaine 1% 20 ml [Xylocaine 1% 20 ML] 2.1 ml IM X1 cefTRIAXone/D5w 1gm IV premix [Rocephin/D5w 1gm IV Med 10/13/24 14:49 Discontinued premix] 1 gm in 50 ml IV X1 Vital Signs Vital signs: Vital Signs Temperature 97.5 F 10/13/24 10:33 Pulse Rate 68 10/13/24 10:33 Respiratory Rate 16 10/13/24 10:33 Blood Pressure 110/76 10/13/24 10:33 Pulse Oximetry (%) 99 10/13/24 10:33 Oxygen Delivery Method Room Air 10/13/24 10:33 Fall MDM Narrative MDM Narrative:: 88-year-old female with a history of hyperlipidemia, CHF, A-fib on Eliquis presents to the emergency room with a chief complaint of a ground-level fall that occurred overnight. Per the caregiver she showed up this morning at the patient's house and the patient was found on the ground. The patient does not remember how she fell or when she fell. Patient is hemodynamically stable and in no apparent distress. Patient lives alone at home but she has home health that visits her daily as well as her son that visits her multiple times a week. A CT of the head and brain was completed and was negative for any acute findings. Her cardiac examination was within normal limits. Her urinalysis showed a urinary tract infection. Patient was treated for her urinary tract infection. CBC CMP were all within normal limits. Prior to discharge the patient is walker was brought into the room and the patient was able to ambulate throughout the ER with her walker. Patient was discharged and educated to follow-up with primary care provider in the next 24 to 48 hours and return to the emergency room for any evidence of worsening signs or symptoms Patient data External records reviewed:: [facility] previous records Clinical information provided by:: patient Social determinants that could affect healthcare access:: none Patient has the following chronic illnesses:: CHF, atrial fibrillation, hyperlipidemia How is presenting disease/condition affected by chronic disease/condition?: caused by Evaluation data The following diagnostics were reviewed and interpreted by me:: lab results and radiology exam(s) Lab and/or radiology exams considered but not ordered:: Labs and radiology exams considered and ordered Interpretation Summary: CT head and brain-Findings: No significant ventricular enlargement. Intra-axial or extra-axial hemorrhage density is not seen. No mass effect or midline shift Basal cisterns are not remarkable. Fourth ventricle is midline. Cranial vault intact. Impression: Negative for acute hemorrhage, mass effect or midline shift Chest [id number]: Mild prominence left ventricle Moderate hyperexpansion. No pneumonia or pulmonary edema. Prominent osteopenia IMPRESSION: No pneumonia or pulmonary edema Medications / Prescriptions Medications or Prescriptions considered but not ordered:: No medication given Medication administrations:: Medication Administration History Discontinued Medications Ceftriaxone Sodium 1,000 mg/ (Lidocaine HCl 2.1 ml) 0 mg IM X1 ONE Stop: 10/13/24 16:04 Last Admin: 10/13/24 16:11 Dose: 1,000 mg Documented By: ANDRA Ceftriaxone Sodium/Dextrose (Rocephin/D5w 1gm Iv Premix) 1 gm in 50 mls @ 100 mls/hr IV X1 ONE Stop: 10/13/24 15:18 Last Admin: 10/13/24 16:05 Dose: Not Given Documented By: ANDRA Non-Admin Reason: Cancelled by Provider No medication given Consultations Consultation(s) initiated? (list below): No Diagnosis Fall Differential Diagnosis: other (Closed head injury/urinary tract infection) Most likely diagnosis given after review of the tests above:: Urinary tract infection Admission Indicated Admission indicated?: not indicated Admission Request Was there a request for admission?: No Disposition Plan Disposition Plan: Discharge Discharge Attestation Discharge Attestation: The patient and all family members were given an opportunity to ask questions and understood the discharge instructions. Discharge instructions specifically effects, indications for sooner follow up or return to the emergency department, and the expected course of current diagnosis. Patient condition: Stable Discharge Plan Plan Patient Disposition: HOME (Self Care) Discharge Disposition comment: Stable Prescriptions/Referrals Prescriptions/Med Rec: New nitrofurantoin monohyd/m-cryst [Macrobid] 100 mg capsule 100 mg PO Q12H 5 Days Qty: 10 0RF Rx Instructions: must administer with a meal/food No Action buspirone 5 mg tablet 5 mg PO BID Patient Comments: take 1 tablet by mouth twice a day Eliquis 2.5 mg Tablet 2.5 mg PO BID 30 Days Qty: 60 2RF atorvastatin 20 mg Tablet 40 mg PO HS 30 Days Qty: 60 2RF amiodarone 200 mg Tablet 200 mg PO BID 30 Days Qty: 60 2RF mirtazapine 15 mg Tablet 15 mg PO HS 30 Days Qty: 30 2RF metoprolol succinate 25 mg Tablet Extended Release 24 Hr 50 mg PO QDAY 30 Days Qty: 60 2RF ferrous sulfate 325 mg (65 mg iron) tablet 325 mg PO Q OTHER DAY Qty: 60 0RF spironolactone 25 mg Tablet 25 mg PO DAILY Qty: 60 0RF Rx Instructions: Hold if SBP below 80 mmHg and DBP below 60 mmHg Nephro-David 0.8 mg Tablet 1 tab PO QDAY Qty: 60 0RF Entresto 24-26 mg Tablet 0.5 tab PO BID Qty: 60 0RF Rx Instructions: Hold if SBP below 80 mmHg and DBP below 60 mmHg bumetanide 2 mg tablet 2 mg PO QDAY Qty: 60 0RF bumetanide 1 mg tablet 1 mg PO HS Qty: 60 0RF protein [Ensure High Protein] Powder 1 ea PO TIDWM Qty: 454 0RF folic acid 1 mg Tablet 1 mg PO DAILY pantoprazole 40 mg Tablet,Delayed Release (Dr/Ec) 40 mg PO BID magnesium 100 mg Capsule 400 mg PO DAILY acetaminophen [Tylenol] 325 mg Tablet 325 mg PO PRN MDD 3 grams PRN (Reason: Pain (Scale Score 1-3)) potassium chloride 8 mEq Tablet Extended Release 8 meq PO DAILY Referrals: No Primary/Family,Physician [Primary Care Provider] - In 1 week Problem List Clinical Impression: Urinary tract infection Patient/Caregiver Discharge Instructions Education Materials: ED CYSTITIS Female Adult Additional Instructions: Please follow-up with your primary care provider in the next 24 to 48 hours Your urinalysis showed a urinary tract infection. Antibiotics are sent to your pharmacy please pick them up and take them as indicated For any evidence of worsening signs or symptoms return to the emergency room immediately Print Language: Divehi Stand Alone Forms: Marleny Award Info., Patient Portal Info Letter PA/PSYCHIATRIC SECURITY NURSE Supervising Physician PA/PSYCHIATRIC SECURITY NURSE Supervising Physician: Dr. Simón BUTLER Attestation MD Attestation The patient was seen by the midlevel practitioner. I, the co-signing physician, was present during the entire ER visit. While I did not physically examine the patient, I was available for consultation as needed. I agree with the plan and documentation.
[2024-10-13 13:18] VITALS: BP 103/61; PULSE 74; RESP 14; O2SAT 93
[2024-10-13 13:23] LABS: Basophils # (Auto) 0.0 Thou/mm3 (0.0-0.2); Basophils % (Auto) 0 % (0-2.5); Eosinophils # (Auto) 0.0 Thou/mm3 (0.0-0.5); Eosinophils % (Auto) 0 % (0-10); Hematocrit 28.9 % (36.0-46.0); Hemoglobin 9.0 g/dL (12.0-16.0); Immature Granulocytes Auto 0.01 Thou/mm3 (0.00-0.00); Lymphocytes # (Auto) 0.6 Thou/mm3 (1.0-4.8); Lymphocytes % (Auto) 18 % (10-50); Mean Corpuscular HGB Conc 31.1 g/dl (31.0-37.0); Mean Corpuscular Hemoglobin 32.1 pg (25.0-35.0); Mean Corpuscular Volume 103 fL (80-100); Monocytes # (Auto) 0.5 Thou/mm3 (0.0-0.8); Monocytes % (Auto) 13 % (0-12); Neutrophils # (Auto) 2.4 Thou/mm3 (1.8-7.7); Neutrophils % (Auto) 68 % (37-80); Nucleated Red Blood Cell # 0.00 Thou/mm3 (0.00-0.00); Nucleated Red Blood Cell % 0 /100 WBC (0); Platelet Count 248 Thou/mm3 (140-440); RDW Standard Deviation 65.2 fL (36.4-46.3); Red Blood Count 2.80 Miln/mm3 (4.00-5.20); White Blood Count 3.5 Thou/mm3 (3.6-11.0)
[2024-10-13 13:37] LABS: INR 1.0 (0.9-1.3); Partial Thromboplastin Time 24.6 Seconds (22.0-36.0); Prothrombin Time 10.9 Seconds (9.0-12.2)
[2024-10-13 13:38] LABS: Alanine Aminotransferase 68 U/L (10-49); Albumin, Serum 2.5 gm/dL (3.4-4.8); Albumin/Globulin Ratio 1.5 (1.2-2.2); Alkaline Phosphatase 80 U/L (46-116); Anion Gap 9 (7-16); Aspartate Amino Transferase 91 U/L (0-34); BUN/Creatinine Ratio 23 Ratio (12-20); Bilirubin,Total 0.4 mg/dL (0.3-1.2); Blood Urea Nitrogen 23 mg/dL (9-23); Calcium 7.7 mg/dL (8.3-10.6); Calcium (Corrected) 8.9 mg/dL (8.5-10.1); Carbon Dioxide 23.1 mMol/L (20.0-31.0); Chloride 107 mMol/L (98-107); Creatinine (Component) 1.0 mg/dL (0.6-1.3); Estimated Creatinine Clearance 27.9 mL/min (>60); Globulin 1.7 gm/dL (2.3-3.5); Glucose 71 mg/dL (74-106); Magnesium 1.6 mg/dL (1.6-2.6); Osmolality,Calculated 279 (275-295); Potassium 3.6 mMol/L (3.4-5.1); Sodium 139 mMol/L (136-145); Total Protein 4.2 gm/dL (5.7-8.2); Troponin I 0.020 ng/mL (0.0-0.045); eGFR 54 See Note
[2024-10-13 13:52] LABS: B-Type Natriuretic Peptide 236 pg/mL (0-100)
[2024-10-13 13:58] LABS: Collection Type, Urine Clean Catch
[2024-10-13 14:24] LABS: Bilirubin,Urine Negative (Negative); Blood,Urine Negative (Negative); Color,Urine Yellow (Lt Yel-Yel); Glucose, Urine Negative (Negative); Hyaline Casts,Urine < 1 /hpf (0-1); Ketones,Urine Negative (Negative); Leukocyte Esterase,Urine Positive (Negative); Nitrite,Urine Negative (Negative); PH,Urine 5.5 (5.0-7.0); Protein,Urine Negative (Neg - Trace); RBC,Urine 1 /hpf (0-3); Specific Gravity,Urine 1.015 (1.001-1.035); Squamous Epithelial Cell,Urine 4 /hpf (0-5); Urobilinogen,Urine Negative mg/dL (0.0-1.0); WBC,Urine 165 /hpf (0-5)
[2024-10-13 14:31] LABS: Clarity,Urine Hazy (Clear/Hazy)
[2024-10-13 15:11] LABS: Creatine Kinase 230 U/L (34-171)
--- NOTE | 2024-10-13 15:57 | PC.NURSE ---
Pt is hard stick. 3 RNs have attempted IV access without success. THREADER OPERATOR informed.
[2024-10-13 16:04] VITALS: BP 118/80; PULSE 83; RESP 15; TEMP 36.6; O2SAT 95
[2024-10-13] MEDS: cefTRIAXone 1,000 MG, LIDOCAINE 1% 20 ML 2.1 ML IM (16:11)
== END 2024-10-13 17:13 | disposition home or self-care (01) ==
PROVIDERS: Nurse Practitioner Family; Emergency Provider Family Medicine
DX: N39.0 Urinary tract infection, site not specified (principal); I48.91 Unspecified atrial fibrillation; R07.9 Chest pain, unspecified; I50.9 Heart failure, unspecified; E78.5 Hyperlipidemia, unspecified
CPT/HCPCS: 51701; 36415; 70450; 71045; 80053; 81001; 82550; 83735; 83880; 84484; 85025; 85610; 85730; 93005; 96372; 99284; J0696; J3490

== ENCOUNTER 2024-10-20 10:32 | Emergency (ER) | payer MEDICARE, MEDICAID, SELFPAY ==
[2024-10-20 10:50] VITALS: PULSE 81; RESP 16; O2SAT 97
--- NOTE | 2024-10-20 10:57 | PD.EDADULT ---
ED General RME/HPI General Chief complaint: Syncope / Near Syncope Stated complaint: SYNCOPE Time Seen by Provider: 10/20/24 10:56 Arrival date/time: 10/20/24 10:32 RME / HPI RME / HPI narrative: 88-year-old female with past medical history of Takotsubo, HFpEF (EF 55 to 60%), A-fib on Eliquis, NSTEMI, frequent falls, hypertension, and hyperlipidemia comes into the ED brought in by ambulance after having a syncopal episode today. Per patient she does not remember how it happened, but EMS stated that caregiver who was with patient when patient was having a bowel movement stated that patient passed out, but did not have any trauma as the caregiver was by her side. Patient at this time was having a bowel movement and then suddenly passed out otherwise had no trauma or did not hit her head. Otherwise patient only stated that she had some nausea, but otherwise no other associated symptoms at this time. Admits social drinking, denies any smoking, drugs Related Data Home Medications ?Medication ?Instructions ?Recorded ?Confirmed buspirone 5 mg tablet 5 mg PO BID 09/17/22 09/10/24 acetaminophen 325 mg tablet 325 mg PO PRN PRN Pain (Scale 07/11/23 09/10/24 (Tylenol) Score 1-3) folic acid 1 mg tablet 1 mg PO DAILY 07/11/23 09/10/24 magnesium 100 mg capsule 400 mg PO DAILY 07/11/23 09/10/24 pantoprazole 40 mg tablet,delayed 40 mg PO BID 07/11/23 09/10/24 release potassium chloride 8 mEq 8 meq PO DAILY 07/11/23 09/10/24 tablet,extended release Previous Rx's ?Medication ?Instructions ?Recorded amiodarone 200 mg tablet 200 mg PO BID 30 days #60 tabs 09/24/22 apixaban 2.5 mg tablet (Eliquis) 2.5 mg PO BID 30 days #60 tabs 09/24/22 atorvastatin 20 mg tablet 40 mg (2 x 20 mg) PO HS 30 days 09/24/22 #60 tabs metoprolol succinate 25 mg 50 mg (2 x 25 mg) PO QDAY 30 days 09/24/22 tablet,extended release 24 hr #60 tabs mirtazapine 15 mg tablet 15 mg PO HS 30 days #30 tabs 09/24/22 bumetanide 1 mg tablet 1 mg PO HS #60 tabs 09/13/24 bumetanide 2 mg tablet 2 mg PO QDAY #60 tabs 09/13/24 ferrous sulfate 325 mg (65 mg 325 mg PO Q OTHER DAY #60 tabs 09/13/24 iron) tablet protein (Ensure High Protein oral 1 ea PO TIDWM #454 grams 09/13/24 powder) sacubitril 24 mg-valsartan 26 mg 0.5 tab PO BID #60 tabs 09/13/24 tablet (Entresto) spironolactone 25 mg tablet 25 mg PO DAILY #60 tabs 09/13/24 vitamin B complex-vitamin C-folic 1 tab PO QDAY #60 tabs 09/13/24 acid 0.8 mg tablet (Nephro-David) Allergies Allergy/AdvReac Type Severity Reaction Status Date / Time tramadol Allergy Intermediate UPSETS Verified 09/09/24 14:28 STOMACH,DOESN'T FEEL GOOD Review of Systems Review of Systems Systems Reviewed: All systems reviewed, normal except as documented Past Medical History Past Medical History NEUROLOGIC: Positive Neurological Disorders and Dementia (mild); Negative Seizures CARDIAC: Positive Cardiac Disorders, Myocardial Infarction, Atrial Fibrillation, Hypercholesterolemia, Congestive Heart Failure, Edema and Hypertension RESPIRATORY: Positive Pneumonia; Negative Chronic Obstructive Pulmonary Disease (COPD) GASTROINTESTINAL: Positive Gastrointestinal Disorders, Gall Bladder Disease, Ulcer and Gastroesophageal Reflux Disease GENITOURINARY: Negative Genitourinary Disorders or Renal Disease REPRODUCTIVE: Positive Previous Pregnancies MUSCULOSKELETAL: Positive Musculoskeletal Disorders and Arthritis ENT: Positive Cataracts and Macular Degeneration ENDOCRINE: Negative Diabetes Mellitus Type 1 or Diabetes Mellitus Type 2 HEMATOLOGIC: Negative Blood Disorders PSYCHO/SOCIAL: Positive Depression OTHER HISTORY: Positive Falls and Blood Transfusions; Negative Blood Transfusion Reaction, Anesthesia Reactions or Cancer Family History FAMILY HISTORY: Positive Family Cancer Surgical History SURGICAL: Positive Cardiac Surgery and Angiogram; Negative Coronary Stent, Pacemaker, Endocrine Surgery, Abdominal Surgery or Joint Replacement Social History SMOKING STATUS: Former smoker SECOND HAND EXPOSURE: No ED Exam Narrative Physical exam: Gen: A&O X 3, NAD, frail elderly HEENT: NCAT, EOMI, Pupils reactive NENO, not icteric. External ears normal. No rhinorrhea. Moist mucous membranes. Neck: Supple, full range of motion, no observable masses, No meningeal sign. Lungs: No Respiratory distress, clear bilateral. CV: RRR, no murmurs. Abdomen: Soft, nondistended, mild generalized tenderness, No rebound tenderness. MSK: No joint swelling, no redness, peripheral pulses presents, 1+ NENO LE edema Skin: No rashes, petechiae, lesions. Neuro: No focal neurological deficits appreciated, sensory and motor intact. Psych: Cooperative, appropriate mood and effect. 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 Care 10/20/24 11:08 Active Continuous Pulse Oximetry NOW Care 10/20/24 11:08 Completed EKG (ED ONLY) *Do not use* NOW Care 10/20/24 11:08 Completed In and Out Catheter X1 Care 10/20/24 14:30 Completed Orthostatic Vitals NOW Care 10/20/24 11:08 Active CXRP [XR chest 1V portable] Stat Exams 10/20/24 11:08 Completed EKG (ED Only) Stat Exams 10/20/24 11:08 Draft CBC [CBC] Stat Lab 10/20/24 12:19 Completed CMP [Comprehensive Metabolic Panel] Stat Lab 10/20/24 12:19 Completed Magnesium Stat Lab 10/20/24 12:19 Completed Procalcitonin Stat Lab 10/20/24 12:19 Completed Troponin I Stat Lab 10/20/24 12:19 Completed UA [Urinalysis] Stat Lab 10/20/24 14:29 Completed Amoxicillin/Pot Clav 875 [Augmentin 875] Med 10/20/24 14:21 Discontinued 1 tab PO X1 ONE Azithromycin Po [Zithromax PO] Med 10/20/24 14:21 Discontinued 250 mg PO X1 ONE Magnesium Sulfate 2 GM Ivpb [Magnesium Sulfate Ivpb] Med 10/20/24 13:48 Active 2 gm in 50 ml IV X1 Vital Signs Vital signs: Vital Signs Temperature 97.8 F 10/20/24 10:59 Pulse Rate 92 10/20/24 10:59 Respiratory Rate 16 10/20/24 10:59 Blood Pressure 128/66 10/20/24 10:59 Pulse Oximetry (%) 97 10/20/24 10:59 Oxygen Delivery Method Room Air 10/20/24 10:59 Discharge Plan Plan Patient Disposition: HOME (Self Care) Prescriptions/Referrals Prescriptions/Med Rec: No Action buspirone 5 mg tablet 5 mg PO BID Patient Comments: take 1 tablet by mouth twice a day Eliquis 2.5 mg Tablet 2.5 mg PO BID 30 Days Qty: 60 2RF atorvastatin 20 mg Tablet 40 mg PO HS 30 Days Qty: 60 2RF amiodarone 200 mg Tablet 200 mg PO BID 30 Days Qty: 60 2RF mirtazapine 15 mg Tablet 15 mg PO HS 30 Days Qty: 30 2RF metoprolol succinate 25 mg Tablet Extended Release 24 Hr 50 mg PO QDAY 30 Days Qty: 60 2RF ferrous sulfate 325 mg (65 mg iron) tablet 325 mg PO Q OTHER DAY Qty: 60 0RF spironolactone 25 mg Tablet 25 mg PO DAILY Qty: 60 0RF Rx Instructions: Hold if SBP below 80 mmHg and DBP below 60 mmHg Nephro-David 0.8 mg Tablet 1 tab PO QDAY Qty: 60 0RF Entresto 24-26 mg Tablet 0.5 tab PO BID Qty: 60 0RF Rx Instructions: Hold if SBP below 80 mmHg and DBP below 60 mmHg bumetanide 2 mg tablet 2 mg PO QDAY Qty: 60 0RF bumetanide 1 mg tablet 1 mg PO HS Qty: 60 0RF protein [Ensure High Protein] Powder 1 ea PO TIDWM Qty: 454 0RF folic acid 1 mg Tablet 1 mg PO DAILY pantoprazole 40 mg Tablet,Delayed Release (Dr/Ec) 40 mg PO BID magnesium 100 mg Capsule 400 mg PO DAILY acetaminophen [Tylenol] 325 mg Tablet 325 mg PO PRN MDD 3 grams PRN (Reason: Pain (Scale Score 1-3)) potassium chloride 8 mEq Tablet Extended Release 8 meq PO DAILY Referrals: No Primary/Family,Physician [Primary Care Provider] - In 1 week Problem List Clinical Impression: Vasovagal syncope, COVID-19, Community acquired pneumonia Patient/Caregiver Discharge Instructions Other Activity Instructions:: Follow-up primary care physician within 1 to 2 days Recommend following up with your performance test consultant in the next 2 to 3 days. Recommend Tylenol every 6 hours as needed for fevers or pain for the next 2 or 3 days. Come back to the ER symptoms persist or worsen Education Materials: COVID-19 Home Care, ED Fainting, Vagal Reaction Print Language: Maldivian Stand Alone Forms: [employer] Award Info., Patient Portal Info Letter MDM Narrative MDM hospital course: Patient was seen and evaluated upon arrival by myself. Diagnostic labs and imaging were ordered as well as orthostatic vitals. Orthostatic vitals were negative, but felt dizzy. Patient's labs were otherwise unchanged from previous and troponins were negative. Gave azithromycin and Augmentin x1 Patient was COVID-positive 15:35: At this time patient is stable enough to be discharged home. Patient will not require p.o. antibiotics as she was COVID-positive and pneumonia was likely secondary to COVID. Patient and son agree with plan. Case disclosed with Attending Dr. Elaine Greenfield PGY2 Disclaimer: Even though this this note was dictated by speech recognition and even though it was carefully revised there may still be minor errors in towing pilot due to voice recognition software. Medication Administration(s) Medication Administration History Magnesium Sulfate (Magnesium Sulfate Ivpb) 2 gm in 50 mls @ 25 mls/hr IV X1 ONE Stop: 10/20/24 15:47 Last Admin: 10/20/24 14:10 Dose: 25 mls/hr Documented By: EF Discontinued Medications Amoxicillin/Clavulanate Potassium (Amoxicillin/Pot Clav 875 Tablet) 1 tab PO X1 ONE Stop: 10/20/24 14:22 Last Admin: 10/20/24 14:54 Dose: 1 tab Documented By: EF Azithromycin (Azithromycin 250 Mg Tablet) 250 mg PO X1 ONE Stop: 10/20/24 14:22 Last Admin: 10/20/24 14:54 Dose: 250 mg Documented By: EF
[2024-10-20 10:59] VITALS: BP 128/66; PULSE 92; RESP 16; TEMP 36.6; O2SAT 97; BMI 23.0
--- NOTE | 2024-10-20 11:08 | EKG_ITS ---
[facility] Test Date: 2024-10-20 Pat Name: MARTI LOPEZ Department: Room: - Gender: Female Retail Sales Specialist: : [id number] Requested By: Fei Greenfield Order Number: [id number] Reading MD: Fei Greenfield Measurements Intervals Webb Rate: 68 P: HI: QRS: -56 QRSD: 118 T: 66 QT: 295 QTc: 315 Interpretive Statements ATRIAL FIBRILLATION LEFT AXIS DEVIATION [QRS AXIS < -30] POSSIBLE ANTERIOR MYOCARDIAL INFARCTION , PROBABLY OLD [30 ms Q WAVE IN V3/V4, OR R < 0.2 mV IN V4] Compared to ECG 10/13/2024 11:42:02 No significant changes /store/S0/[id number].pdf
--- NOTE | 2024-10-20 11:08 | XR_ITS ---
Examination: AP chest single view TECHNIQUE: Portable semiupright AP chest single view Date and time: October 20, 2024 1116 hours Comparison December 2024 INDICATIONS: Shortness of breath syncope beginning today. FINDINGS: Normal heart size Minimal opacity right base Prominent osteopenia No pulmonary edema IMPRESSION: Minimal opacity right base, differential would include mild aspiration pneumonia
[2024-10-20 11:13] VITALS: BP 113/69; BP 117/71; BP 118/67; PULSE 70; PULSE 71; PULSE 77; PULSE 83
[2024-10-20 12:58] LABS: Basophils # (Auto) 0.0 Thou/mm3 (0.0-0.2); Basophils % (Auto) 0 % (0-2.5); Eosinophils # (Auto) 0.0 Thou/mm3 (0.0-0.5); Eosinophils % (Auto) 0 % (0-10); Hematocrit 31.3 % (36.0-46.0); Hemoglobin 9.7 g/dL (12.0-16.0); Immature Granulocytes Auto 0.01 Thou/mm3 (0.00-0.00); Lymphocytes # (Auto) 0.3 Thou/mm3 (1.0-4.8); Lymphocytes % (Auto) 12 % (10-50); Mean Corpuscular HGB Conc 31.0 g/dl (31.0-37.0); Mean Corpuscular Hemoglobin 31.9 pg (25.0-35.0); Mean Corpuscular Volume 103 fL (80-100); Monocytes # (Auto) 0.2 Thou/mm3 (0.0-0.8); Monocytes % (Auto) 9 % (0-12); Neutrophils # (Auto) 2.2 Thou/mm3 (1.8-7.7); Neutrophils % (Auto) 79 % (37-80); Nucleated Red Blood Cell # 0.00 Thou/mm3 (0.00-0.00); Nucleated Red Blood Cell % 0 /100 WBC (0); Platelet Count 236 Thou/mm3 (140-440); RDW Standard Deviation 61.4 fL (36.4-46.3); Red Blood Count 3.04 Miln/mm3 (4.00-5.20); White Blood Count 2.8 Thou/mm3 (3.6-11.0)
[2024-10-20 13:22] LABS: Alanine Aminotransferase 33 U/L (10-49); Albumin, Serum 2.7 gm/dL (3.4-4.8); Albumin/Globulin Ratio 1.4 (1.2-2.2); Alkaline Phosphatase 105 U/L (46-116); Anion Gap 8 (7-16); Aspartate Amino Transferase 31 U/L (0-34); BUN/Creatinine Ratio 14 Ratio (12-20); Bilirubin,Total 0.3 mg/dL (0.3-1.2); Blood Urea Nitrogen 11 mg/dL (9-23); Calcium 8.3 mg/dL (8.3-10.6); Calcium (Corrected) 9.3 mg/dL (8.5-10.1); Carbon Dioxide 24.8 mMol/L (20.0-31.0); Chloride 107 mMol/L (98-107); Creatinine (Component) 0.8 mg/dL (0.6-1.3); Estimated Creatinine Clearance 38.4 mL/min (>60); Globulin 1.9 gm/dL (2.3-3.5); Glucose 103 mg/dL (74-106); Magnesium 1.5 mg/dL (1.6-2.6); Osmolality,Calculated 278 (275-295); Potassium 4.0 mMol/L (3.4-5.1); Procalcitonin 0.08 ng/ml (0.0-0.49); Sodium 140 mMol/L (136-145); Total Protein 4.6 gm/dL (5.7-8.2); Troponin I < 0.020 ng/mL (0.0-0.045); eGFR > 60 See Note
[2024-10-20] MEDS: Magnesium Sulfate 2 GM Ivpb 2 GM/50 ML BAG IV (14:10)
[2024-10-20 14:35] LABS: Collection Type, Urine Voided
[2024-10-20 14:51] VITALS: BP 120/97; PULSE 72; RESP 19; TEMP 36.4; O2SAT 99
[2024-10-20] MEDS: AZITHROMYCIN 250 MG TABLET PO (14:54)
[2024-10-20] MEDS: AMOXICILLIN/POT CLAV 875 TABLET 1 TAB PO (14:54)
[2024-10-20 15:17] LABS: Bilirubin,Urine Negative (Negative); Blood,Urine Negative (Negative); Clarity,Urine Clear (Clear/Hazy); Color,Urine Yellow (Lt Yel-Yel); Glucose, Urine Negative (Negative); Hyaline Casts,Urine < 1 /hpf (0-1); Ketones,Urine Negative (Negative); Leukocyte Esterase,Urine Negative (Negative); Nitrite,Urine Negative (Negative); PH,Urine 5.5 (5.0-7.0); Protein,Urine Negative (Neg - Trace); RBC,Urine 1 /hpf (0-3); Specific Gravity,Urine 1.016 (1.001-1.035); Squamous Epithelial Cell,Urine < 1 /hpf (0-5); Urobilinogen,Urine Negative mg/dL (0.0-1.0); WBC,Urine 1 /hpf (0-5)
[2024-10-20 16:09] VITALS: BP 114/59; PULSE 76; RESP 17; O2SAT 98
== END 2024-10-20 16:18 | disposition home or self-care (01) ==
DX: U07.1 COVID-19 (principal); J18.9 Pneumonia, unspecified organism; I11.0 Hypertensive heart disease with heart failure; I50.32 Chronic diastolic (congestive) heart failure; I48.91 Unspecified atrial fibrillation; Z79.01 Long term (current) use of anticoagulants; E78.5 Hyperlipidemia, unspecified; I25.2 Old myocardial infarction
CPT/HCPCS: 51701; 36415; 71045; 80053; 81001; 83735; 84145; 84484; 85025; 87400; 87811; 93005; 96365; 96366; 99283; J3475; A9270